=== PATIENT | male | born 1965 | race Caucasian/White ===

== ENCOUNTER 2017-01-22 20:50 | Emergency (ER) | payer OTHER ==
[~2017-01-22] VITALS: Ht 193 cm; Wt 120.0 kg
[2017-01-22] MEDS ORDERED: XANA0.25 PO (21:11)
[2017-01-22] MEDS ORDERED: METOPROLOL 5 MG/5 ML VIAL IV SCH (21:15)
[2017-01-22] MEDS ORDERED: METOPROLOL TART 50 MG TAB PO ONE (21:15)
[2017-01-22] MEDS ORDERED: ASPIRIN 81 MG CHEW TABLET PO ONE (21:15)
[2017-01-22] MEDS ORDERED: NS 1,000 ML IV ONE (21:15)
[2017-01-22 21:38] VITALS: BP 115/57
[2017-01-22 21:38] LABS: BASO # 0.1 K/mm3 (0.0-0.2); BASO % 0.6 % (0.0-1.0); EOS # 0.2 K/mm3 (0.0-0.50); EOS % 1.7 % (0.0-3.0); LARGE UNSTAINED CELL # 0.1 K/mm3 (0.0-0.4); LARGE UNSTAINED CELL % 1.2 % (0.0-4.0); LYMPH # 3.4 K/mm3 (1.5-4.5); LYMPH % 30.7 % (24.0-44.0); MEAN CORPUSCULAR HGB CONC 34.3 g/dl (32.0-36.5); MEAN CORPUSCULAR VOLUME 93.4 fl (80.0-96.0); MONO # 0.5 K/mm3 (0.0-0.8); MONO % 4.6 % (0.0-5.0); NEUTROPHILS # 6.6 K/mm3 (1.8-7.7); NEUTROPHILS % 61.2 % (36.0-66.0); PLATELET COUNT, AUTOMATED 324 k/mm3 (150-450); RED CELL DISTRIBUTION WIDTH 12.6 % (11.5-14.5); WHITE BLOOD COUNT 10.8 K/mm3 (4.0-10.0)
[2017-01-22 21:45] LABS: INR 0.98
[2017-01-22 21:59] LABS: ANION GAP 6 MEQ/L (8-16); BLOOD UREA NITROGEN 15 MG/DL (7-18); CALCIUM LEVEL 8.8 MG/DL (8.5-10.1); CARBON DIOXIDE LEVEL 31 MEQ/L (21-32); CHLORIDE LEVEL 104 MEQ/L (98-107); CREATININE FOR GFR 0.83 MG/DL (0.70-1.30); GLOMERULAR FILTRATION RATE > 60.0 (>60); GLUCOSE, FASTING 125 MG/DL (70-105); POTASSIUM SERUM 3.7 MEQ/L (3.5-5.1); SODIUM LEVEL 141 MEQ/L (136-145)
[2017-01-22] MEDS ORDERED: LORazepam 2 MG/ML VIAL (J2060) IV STA (22:14)
[2017-01-22] MEDS ORDERED: diphenhydrAMINE INJ 50MG/ML VIAL (J1200) IV STA (22:14)
--- NOTE | 2017-01-22 22:40 | REP ---
Clinical: Chest pain. Comparison: 08/27/2010. Findings: Mediastinum and cardiac silhouette are within normal limits and stable for portable technique. Lung parkinson demonstrate chronic changes. Trace basilar atelectasis cannot be excluded. No obvious consolidation, effusion, or pneumothorax. Skeletal structures intact. Impression: Chronic stable changes. Cannot exclude trace basilar atelectasis. Signed by Kings Koo MD 01/22/2017 10:31 P
[2017-01-22] MEDS ORDERED: RIVAROXABAN 20 MG TAB (XARELTO) PO ONE (23:45)
[2017-01-22] MEDS ORDERED: LOPR1TAB6 PO (23:52)
[2017-01-22] MEDS ORDERED: XARE20TA PO (23:52)
[2017-01-23 00:07] VITALS: BP 14/68
--- NOTE | 2017-01-24 07:20 | ECGEPIP ---
Stationary ECG Study [facility] - ED Test Date: 2017-01-22 Pat Name: ARNOLD KAPLAN Department: Room: - Gender: M Mesh Man: john : 1965 Requested By: STANISLAV Pérez Order Number: [id number] Reading MD: Kathy Gutierrez Measurements Intervals [place] Rate: 118 P: [place]: 0 QRS: 49 QRSD: 100 T: 46 QT: 324 QTc: 454 Interpretive Statements ATRIAL FIBRILLATION WITH RAPID VENTRICULAR RESPONSE POSSIBLE INFERIOR MYOCARDIAL INFARCTION, PROBABLY OLD ABNORMAL RHYTHM ECG NO PRIOR FOR COMPARISON Electronically Signed On 01-24-2017 7:20:13 EDT by Kathy Gutierrez
== END 2017-01-23 00:20 | disposition home or self-care (01) ==
LOC: M ED 21:52
DX: I48.91 Unspecified atrial fibrillation (principal); R94.31 Abnormal electrocardiogram [ECG] [EKG]; Z86.711 Personal history of pulmonary embolism; Z85.118 Personal history of other malignant neoplasm of bronchus and lung; F17.200 Nicotine dependence, unspecified, uncomplicated

== ENCOUNTER → 2017-05-24 | Outpatient (CLI) | payer OTHER ==
[~2017-05-24] MED LIST: LOPR1TAB6 PO; XANA0.25 PO; XARE20TA PO
[2017-05-24 08:27] LABS: MEAN CORPUSCULAR HEMOGLOBIN 31.9 pg (27.0-33.0); MEAN CORPUSCULAR HGB CONC 34.6 g/dl (32.0-36.5); MEAN CORPUSCULAR VOLUME 92.1 fl (80.0-96.0); PLATELET COUNT, AUTOMATED 310 10^3/uL (150-450); RED CELL DISTRIBUTION WIDTH 12.9 % (11.5-14.5); WHITE BLOOD COUNT 7.9 10^3/uL (4.0-10.0)
[2017-05-24 09:43] LABS: ALBUMIN 3.8 GM/DL (3.2-5.2); ALBUMIN/GLOBULIN RATIO 1.12 (1.00-1.93); ALKALINE PHOSPHATASE 76 U/L (45-117); ALT/SGPT 23 U/L (12-78); ANION GAP 7 MEQ/L (8-16); AST/SGOT 11 U/L (15-37); BILIRUBIN,TOTAL 0.5 MG/DL (0.2-1.0); BLOOD UREA NITROGEN 14 MG/DL (7-18); CALCIUM LEVEL 9.5 MG/DL (8.5-10.1); CARBON DIOXIDE LEVEL 28 MEQ/L (21-32); CHLORIDE LEVEL 104 MEQ/L (98-107); CHOLESTEROL LEVEL 191 MG/DL (<200); GLOMERULAR FILTRATION RATE > 60.0 (>60); GLUCOSE, FASTING 100 MG/DL (70-105); POTASSIUM SERUM 4.5 MEQ/L (3.5-5.1); SODIUM LEVEL 139 MEQ/L (136-145); TOTAL PROTEIN 7.2 GM/DL (6.4-8.2); TRIGLYCERIDES LEVEL 154 MG/DL (<150)
== END ==
LOC: M LAB 07:51
PROVIDERS: ATTEND Family Medicine
DX: F32.9 Major depressive disorder, single episode, unspecified (principal); E78.4 Other hyperlipidemia; E74.9 Disorder of carbohydrate metabolism, unspecified

== ENCOUNTER 2018-05-11 08:57 | Emergency (ER) | payer OTHER ==
[2018-05-11] MEDS ORDERED: METOPROLOL 5 MG/5 ML VIAL As Ordered (09:16)
[2018-05-11] MEDS: METOPROLOL 5 MG/5 ML VIAL IV ×6 (09:20→09:36)
[2018-05-11 09:24] LABS: HEMATOCRIT 42.4 % (42.0-52.0); HEMOGLOBIN 14.6 g/dl (13.5-17.5); MEAN CORPUSCULAR HEMOGLOBIN 31.4 pg (27.0-33.0); MEAN CORPUSCULAR HGB CONC 34.4 g/dl (32.0-36.5); MEAN CORPUSCULAR VOLUME 91.2 fl (80.0-96.0); PLATELET COUNT, AUTOMATED 388 10^3/uL (150-450); RED BLOOD COUNT 4.65 10^6/uL (4.30-6.10); RED CELL DISTRIBUTION WIDTH 12.9 % (11.5-14.5); WHITE BLOOD COUNT 14.5 10^3/uL (4.0-10.0)
[2018-05-11 09:36] LABS: INR 1.01; PROTHROMBIN TIME 13.4 SECONDS (12.1-14.4)
[2018-05-11 09:37] LABS: PARTIAL THROMBOPLASTIN TIME 28.3 SECONDS (25.4-37.6)
[2018-05-11 09:39] LABS: ADD MANUAL DIFFER YES; DIFF SLIDE NUMBER 105; POSITIVE DIFF POS FLAG
[2018-05-11 10:08] LABS: ATYPICAL LYMPH 2 % (0-5); EOSINOPHILS 2 % (0-5); LYMPHOCYTES 31 % (16-52); MONOCYTES 9 % (0-8); NEUTROPHILS 56 % (35-75); PLATELET ESTIMATE NORMAL (NORMAL)
[2018-05-11 10:24] LABS: ALBUMIN 3.1 GM/DL (3.2-5.2); ALBUMIN/GLOBULIN RATIO 0.78 (1.00-1.93); ALKALINE PHOSPHATASE 75 U/L (45-117); ALT/SGPT 38 U/L (12-78); ANION GAP 10 MEQ/L (8-16); AST/SGOT 19 U/L (7-37); BILIRUBIN,DIRECT < 0.1 MG/DL (0.0-0.2); BILIRUBIN,TOTAL 0.3 MG/DL (0.2-1.0); BLOOD UREA NITROGEN 18 MG/DL (7-18); CALCIUM LEVEL 8.1 MG/DL (8.5-10.1); CARBON DIOXIDE LEVEL 26 MEQ/L (21-32); CHLORIDE LEVEL 108 MEQ/L (98-107); CPK CREATINE PHOSPHOKINASE 135 U/L (39-308); CREATININE FOR GFR 0.86 MG/DL (0.70-1.30); FREE T4 1.18 NG/DL (0.76-1.46); GLOMERULAR FILTRATION RATE > 60.0 (>56); GLUCOSE, FASTING 85 MG/DL (70-100); MB/CK RELATIVE INDEX 0.74 (< OR =4); POTASSIUM SERUM 4.1 MEQ/L (3.5-5.1); SODIUM LEVEL 144 MEQ/L (136-145); TOTAL PROTEIN 7.1 GM/DL (6.4-8.2); TROPONIN I < 0.02 NG/ML (< 0.10)
[2018-05-11] MEDS: RIVAROXABAN 20 MG TAB (XARELTO) PO (11:20)
== END 2018-05-11 11:30 | disposition left against medical advice (07) ==
LOC: M ED 08:57
DX: I48.91 Unspecified atrial fibrillation (principal); Z53.20 Procedure and treatment not carried out because of patient's decision for unspecified reasons
CPT/HCPCS: 71045

== ENCOUNTER 2018-05-11 16:44 | Emergency (ER) | payer OTHER ==
[2018-05-11 17:12] LABS: BASO # 0.1 10^3/uL (0.0-0.2); BASO % 0.3 % (0.0-1.0); EOS # 0.2 10^3/uL (0.0-0.50); EOS % 1.2 % (0.0-3.0); HEMOGLOBIN 14.7 g/dl (13.5-17.5); IMMATURE GRANULOCYTE % 0.9 % (0-3.0); LYMPH # 4.4 10^3/uL (1.5-4.5); LYMPH % 27.2 % (24.0-44.0); MEAN CORPUSCULAR HEMOGLOBIN 31.7 pg (27.0-33.0); MEAN CORPUSCULAR VOLUME 90.7 fl (80.0-96.0); MONO # 1.2 10^3/uL (0.0-0.8); MONO % 7.3 % (0.0-5.0); NEUTROPHILS # 10.2 10^3/uL (1.8-7.7); NEUTROPHILS % 63.1 % (36.0-66.0); PLATELET COUNT, AUTOMATED 372 10^3/uL (150-450); RED BLOOD COUNT 4.63 10^6/uL (4.30-6.10); RED CELL DISTRIBUTION WIDTH 12.7 % (11.5-14.5); WHITE BLOOD COUNT 16.1 10^3/uL (4.0-10.0)
[2018-05-11] MEDS: NS 1,000 ML IV (17:15)
[2018-05-11] MEDS: METOPROLOL TART 25 MG TABLET PO (17:30)
[2018-05-11 17:38] LABS: ANION GAP 8 MEQ/L (8-16); BLOOD UREA NITROGEN 15 MG/DL (7-18); CALCIUM LEVEL 8.4 MG/DL (8.5-10.1); CARBON DIOXIDE LEVEL 28 MEQ/L (21-32); CHLORIDE LEVEL 104 MEQ/L (98-107); CPK CREATINE PHOSPHOKINASE 133 U/L (39-308); CREATININE FOR GFR 0.82 MG/DL (0.70-1.30); GLOMERULAR FILTRATION RATE > 60.0 (>56); GLUCOSE, FASTING 85 MG/DL (70-100); MB/CK RELATIVE INDEX 0.98 (< OR =4); POTASSIUM SERUM 3.9 MEQ/L (3.5-5.1); SODIUM LEVEL 140 MEQ/L (136-145); TROPONIN I < 0.02 NG/ML (< 0.10)
[2018-05-11] MEDS: METOPROLOL 5 MG/5 ML VIAL IV (18:53)
== END 2018-05-11 18:50 | disposition home or self-care (01) ==
LOC: M ED 16:44
DX: I48.91 Unspecified atrial fibrillation (principal)
CPT/HCPCS: 93005

== ENCOUNTER → 2018-10-09 | Outpatient (REF) | payer OTHER ==
[~2018-10-09] MED LIST changes: +AMOX PO; +ASPI1TAB20 PO; +METO1TAB87 PO; +PRED20TA PO
[2018-10-09 12:29] LABS: HEMATOCRIT 41.2 % (42.0-52.0); MEAN CORPUSCULAR VOLUME 91.2 fl (80.0-96.0); PLATELET COUNT, AUTOMATED 329 10^3/uL (150-450); RED BLOOD COUNT 4.52 10^6/uL (4.30-6.10); WHITE BLOOD COUNT 8.4 10^3/uL (4.0-10.0)
[2018-10-09 13:29] LABS: ALBUMIN 4.2 GM/DL (3.2-5.2); ALT/SGPT 26 U/L (12-78); BILIRUBIN,TOTAL 0.4 MG/DL (0.2-1.0); BLOOD UREA NITROGEN 22 MG/DL (7-18); CALCIUM LEVEL 8.9 MG/DL (8.5-10.1); CARBON DIOXIDE LEVEL 28 MEQ/L (21-32); CHLORIDE LEVEL 107 MEQ/L (98-107); CHOLESTEROL LEVEL 227 MG/DL (<200); CHOLESTEROL RISK RATIO 5.675 (<5); CREATININE FOR GFR 0.81 MG/DL (0.70-1.30); FREE T4 1.04 NG/DL (0.76-1.46); GLOMERULAR FILTRATION RATE > 60.0 (>56); GLUCOSE, FASTING 96 MG/DL (70-100); HDL CHOLESTEROL 40 MG/DL (>40); LDL CHOLESTEROL 163 MG/DL (<100); NON-HDL-C 187 MG/DL; POTASSIUM SERUM 4.9 MEQ/L (3.5-5.1); SODIUM LEVEL 140 MEQ/L (136-145); TOTAL PROTEIN 7.4 GM/DL (6.4-8.2); TRIGLYCERIDES LEVEL 121 MG/DL (<150)
== END ==
LOC: M SFHCADAM 10:17
PROVIDERS: ATTEND Family Medicine
DX: Z12.5 Encounter for screening for malignant neoplasm of prostate (principal); E78.5 Hyperlipidemia, unspecified; I48.0 Paroxysmal atrial fibrillation; F32.9 Major depressive disorder, single episode, unspecified; G47.33 Obstructive sleep apnea (adult) (pediatric)

== ENCOUNTER → 2019-10-08 | Outpatient (REF) | payer OTHER ==
[~2019-10-08] MED LIST changes: -ASPI1TAB20 PO; +ASPI325T57 PO
[2019-10-08 13:34] LABS: ALBUMIN 3.9 GM/DL (3.2-5.2); ALT/SGPT 23 U/L (12-78); BILIRUBIN,TOTAL 0.3 MG/DL (0.2-1.0); BLOOD UREA NITROGEN 19 MG/DL (7-18); CALCIUM LEVEL 9.4 MG/DL (8.5-10.1); CARBON DIOXIDE LEVEL 30 MEQ/L (21-32); CHLORIDE LEVEL 105 MEQ/L (98-107); CHOLESTEROL LEVEL 184 MG/DL (<200); CREATININE FOR GFR 0.86 MG/DL (0.70-1.30); FREE T4 1.06 NG/DL (0.76-1.46); GLOMERULAR FILTRATION RATE > 60.0 (>56); GLUCOSE, FASTING 87 MG/DL (70-100); HDL CHOLESTEROL 32 MG/DL (>40); LDL CHOLESTEROL 129 MG/DL (<100); NON-HDL-C 152 MG/DL; POTASSIUM SERUM 4.7 MEQ/L (3.5-5.1); SODIUM LEVEL 138 MEQ/L (136-145); TOTAL PROTEIN 7.4 GM/DL (6.4-8.2); TRIGLYCERIDES LEVEL 114 MG/DL (<150)
[2019-10-08 13:50] LABS: HEMATOCRIT 43.8 % (42.0-52.0); HEMOGLOBIN 14.7 g/dl (13.5-17.5); MEAN CORPUSCULAR HEMOGLOBIN 31.6 pg (27.0-33.0); MEAN CORPUSCULAR HGB CONC 33.6 g/dl (32.0-36.5); MEAN CORPUSCULAR VOLUME 94.2 fl (80.0-96.0); PLATELET COUNT, AUTOMATED 359 10^3/uL (150-450); RED BLOOD COUNT 4.65 10^6/uL (4.30-6.10); WHITE BLOOD COUNT 9.3 10^3/uL (4.0-10.0)
[2019-10-08 14:25] LABS: HEMOGLOBIN A1c 5.8 %
== END ==
LOC: M SFHCADAM 09:51
PROVIDERS: ATTEND Family Medicine
DX: J44.9 Chronic obstructive pulmonary disease, unspecified (principal); G47.33 Obstructive sleep apnea (adult) (pediatric); I11.9 Hypertensive heart disease without heart failure; E78.5 Hyperlipidemia, unspecified; I48.0 Paroxysmal atrial fibrillation; E74.9 Disorder of carbohydrate metabolism, unspecified; Z12.5 Encounter for screening for malignant neoplasm of prostate

== ENCOUNTER → 2021-05-04 | Outpatient (REF) | payer OTHER ==
[2021-05-04 17:54] LABS: HEMATOCRIT 40.4 % (42.0-52.0); HEMOGLOBIN 13.6 g/dl (13.5-17.5); MEAN CORPUSCULAR HEMOGLOBIN 31.2 pg (27.0-33.0); MEAN CORPUSCULAR HGB CONC 33.7 g/dl (32.0-36.5); MEAN CORPUSCULAR VOLUME 92.7 fl (80.0-96.0); PLATELET COUNT, AUTOMATED 333 10^3/uL (150-450); RED BLOOD COUNT 4.36 10^6/uL (4.30-6.10); WHITE BLOOD COUNT 11.5 10^3/uL (4.0-10.0)
[2021-05-04 19:32] LABS: ALBUMIN 3.6 GM/DL (3.2-5.2); ALT/SGPT 27 U/L (12-78); BILIRUBIN,TOTAL 0.6 MG/DL (0.2-1.0); BLOOD UREA NITROGEN 16 MG/DL (7-18); CALCIUM LEVEL 9.2 MG/DL (8.5-10.1); CARBON DIOXIDE LEVEL 28 MEQ/L (21-32); CHLORIDE LEVEL 107 MEQ/L (98-107); CHOLESTEROL LEVEL 201 MG/DL (<200); CHOLESTEROL RISK RATIO 5.025 (<5); CREATININE FOR GFR 0.91 MG/DL (0.70-1.30); FREE T4 1.06 NG/DL (0.76-1.46); GLOMERULAR FILTRATION RATE > 60.0 (>56); GLUCOSE, FASTING 77 MG/DL (70-100); HDL CHOLESTEROL 40 MG/DL (>40); LDL CHOLESTEROL 137 MG/DL (<100); NON-HDL-C 161 MG/DL; POTASSIUM SERUM 4.2 MEQ/L (3.5-5.1); SODIUM LEVEL 139 MEQ/L (136-145); TOTAL PROTEIN 7.2 GM/DL (6.4-8.2); TRIGLYCERIDES LEVEL 121 MG/DL (<150)
[2021-05-04 19:52] LABS: HEMOGLOBIN A1c 5.4 %
== END ==
LOC: M SFHCADAM 15:50
PROVIDERS: ATTEND Family Medicine
DX: G47.33 Obstructive sleep apnea (adult) (pediatric) (principal); I11.9 Hypertensive heart disease without heart failure; E78.5 Hyperlipidemia, unspecified; E74.9 Disorder of carbohydrate metabolism, unspecified; I48.0 Paroxysmal atrial fibrillation; Z12.5 Encounter for screening for malignant neoplasm of prostate

== ENCOUNTER → 2021-05-04 | Outpatient (CLI) | payer OTHER ==
--- NOTE | 2021-05-05 09:29 | REP ---
INDICATION: ARTHRITIS OF BOTH KNEE. COMPARISON: Comparison radiographs are from May 30, 2015. Comparison left knee radiographs are from November 22, 2012. TECHNIQUE: Bilateral knee radiographs. Eleven views total. FINDINGS: Bilateral knee radiographs demonstrate advanced osteoarthritis. On the right there is joint space narrowing in the medial tibiofemoral compartment with sclerosis and well established osteophytes. Fairly large osteophytes are seen laterally and there is patellofemoral narrowing and spur formation. There is a large ossicle in the suprapatellar bursa consistent with a loose body. This measures 2.6 cm. There is also non articular spurring at the superior pole of the patella at the quadriceps tendon insertion. A fabella is noted posterolaterally on the right. On the left, there are similar findings with advanced 3 compartment osteoarthritis, medial joint space narrowing, patellofemoral joint space narrowing, and well established spurring at all 3 compartments. There are at least 2 os ossific loose bodies in the region of the suprapatellar bursa on the left. These measure rr 3.1 and 4.8 cm in greatest diameter respectively. There is a possible loose body adjacent to the posterior 0 aspect of the proximal tibiofibular articulation on the left. There is non articular spurring at the upper pole the left patella at the quadriceps tendon insertion similar to that seen on the right. IMPRESSION: Advanced 3 compartment osteoarthritis bilaterally. Bilateral suprapatellar bursal loose body suspected. The findings have progressed on the right somewhat and the loose body is new on the right compared to the May 30, 2015 prior knee radiograph. The left knee findings have progressed since the 2012 radiograph as well. <Electronically signed by Brian Duncan > 05/05/21 4590
== END ==
LOC: M ADAMS 15:56
PROVIDERS: ATTEND Family Medicine
DX: M17.0 Bilateral primary osteoarthritis of knee (principal)

== ENCOUNTER 2021-06-16 05:44 | Observation (INO) | payer OTHER ==
[~2021-06-16] VITALS: Ht 193 cm; Wt 136.4 kg
[2021-06-16] MEDS ORDERED: ASPI-161 PO (05:52)
--- OUTSIDE RECORDS SUMMARY | 2021-06-16 05:54 | CCD | Continuity of Care Document ---
Author Author [facility] Organization Unknown Address [address] [place] [address] [place] [address] Phone [phone] Care Team Providers Care Telecine Operator Name Role Phone Henok Bustillos MD AUTM [phone] AUTM Unavailable Problems Description No Information Available Social History Type Date Description Comments Sex Unknown Tobacco Use Start: Unknown Current Cigarette Smoker 1 Pack Daily 1/2 ETOH Use Denies alcohol use Tobacco Use Start: Unknown Patient is a current smoker, smo kes every day Smoking Status Reviewed: 05/12/21 Patient is a current smoker, smokes every day Allergies and adverse reactions Description No Known Drug Allergies Medications Active Medications SIG Qnty Indications Ordering Provide r Date Amoxicillin/Clavulanate Potassium 875-125mg Tablets 1 tab by mouth twice a day for 10 days 20tabs J03.90 Adryan Pelayo JR., M.D. 05/12/2021 Metoprolol Succinate ER Unknown 0 Aspir-[address] qd Unknown Ibuprofen 800mg Tablets take one tablet every 6-8hrs with food this am Unknown 0 Medications Administered in Office Medication SIG Qnty Indications Ordering Provider Date Rocephin/Ceftriaxone Sodium Injection Pe r 250 MG Injection Edvin Forrester 05/12/2021 Immunizations Description No Information Available Vital Signs Date Vital Result Comment 05/12/2021 4:19pm BP Systolic 122 mmHg BP Diastolic 80 mmHg Heart Rate 94 /min Respiratory Rate 17 /min O2 % BldC Oximetry 97 % Body Temperature 98.4 F Weight 290.00 lb Height 76 inches 6'4" BMI (Body Mass Index) 35.3 kg/m2 Pain Level 9 08/28/2019 6:32pm BP Systolic 114 mmHg BP Diastolic 79 mmHg Heart Rate 102 /min Respiratory Rate 18 /min O2 % BldC Oximetry 97 % Body Temperature 98.9 F Weight 292.00 lb Height 76 inches 6'4" BMI (Body Mass Index) 35.5 kg/m2 Pain Level 8 Results Description No Information Available Procedures Date Code Description Status 05/12/2021 22622 Office/Outpatient Established Lo w MDM 20-29 Min Completed 05/12/2021 66524 Therapeutic, Prophylactic Or Lesia gnostic Injection Subq/Im Completed Medical Devices Description No Information Available Encounters Type Date Location Provider Dx Diagnosis Office Visit 05/12/2021 2:35p Main Office Jean Palma, PGatito J0 3.90 Acute tonsillitis, unspecified Z20.828 Contact w and exposure to ot h viral communicable diseases Assessments Date Code Description Provider 05/12/2021 J03.90 Acute tonsillitis, unspecified J vanda Palma, PGarethAGareth 05/12/2021 Z20.828 Contact with and (espinoza spected) exposure to other viral communicable diseases Jean Palma, PG[place]ito Plan of Treatment No Information Available Functional Status Description No Information Available Mental Status Description No Information Available Referrals Description No Information Available
--- OUTSIDE RECORDS SUMMARY | 2021-06-16 05:54 | CCD | Continuity of Care Document ---
Author Author Juan Carlos PALMA Organization Unknown Address [address] [place] [address] [place] [address] Phone [phone] Care Team Providers Care Roller Operator Name Role Phone Henok Bsutillos MD AUTM [phone] AUTM Unavailable Problems Description No Information Available [...] Available Procedures Date Code Description Status 05/12/2021 67764 Office/Outpatient Established Lo w MDM 20-29 Min Completed 05/12/2021 19948 Therapeutic, Prophylactic Or Lesia gnostic Injection Subq/Im [...]
--- OUTSIDE RECORDS SUMMARY | 2021-06-16 05:54 | CCD | Continuity of Care Document ---
Author Author Juan Carlos PALMA Organization Unknown Address [address] [place] [address] [place] [address] Phone [phone] Care Team Providers Care Mine Car Mechanic Name Role Phone Henok Bustillos MD AUTM [phone] AUTM Unavailable Problems Description No Information Available [...] Available Procedures Date Code Description Status 05/12/2021 64801 Office/Outpatient Established Lo w MDM 20-29 Min Completed 05/12/2021 03264 Therapeutic, Prophylactic Or Lesia gnostic Injection Subq/Im [...]
--- OUTSIDE RECORDS SUMMARY | 2021-06-16 05:54 | CCD | Continuity of Care Document ---
Author Author [facility] Organization Unknown Address [address] [place] [address] [place] [address] Phone [phone] Care Team Providers Care Insulation Technician Name Role Phone Henok Bustillos MD AUTM [phone] AUTM Unavailable Problems Description No Information Available [...] Available Procedures Date Code Description Status 05/12/2021 32850 Office/Outpatient Established Lo w MDM 20-29 Min Completed 05/12/2021 09129 Therapeutic, Prophylactic Or Lesia gnostic Injection Subq/Im Completed Medical Devices Description No Information Available Encounters Type Date Location Provider Dx Diagnosis Office Visit 05/12/2021 2:35p Main Office Jean Niño, PGatito J0 3.90 Acute tonsillitis, unspecified Z20.828 Contact w and exposure to ot h viral communicable diseases Assessments Date Code Description Provider 05/12/2021 J03.90 Acute tonsillitis, unspecified J vanda Niño, PGarethAGareth 05/12/2021 Z20.828 Contact with and (espinoza spected) exposure to other viral communicable diseases Jean Niño, PG[place] Plan of Treatment No Information Available Functional Status Description No Information Available Mental Status Description No Information Available Referrals Description No Information Available
--- OUTSIDE RECORDS SUMMARY | 2021-06-16 05:55 | CCD ---
Author Author [facility] Organization [facility] Address Unknown Phone Unavailable Care Team Providers Care Elementary Assistant Principal Name Role Phone Henok Bustillos Unavailable PROBLEMS Type Condition ICD9-CM Code [id number] Code Onset Dates Condition S tatus W/U Status Risk SNOMED Code Notes Problem Major depressive disorder, single episode, unspecified F32.9 Active confirmed 46713867 Problem Nicotine dependence, unspecified, uncomplicated F1 7.200 Active confirmed 445937121 Problem Other hyperlipidemia E78.4 Active confirmed 61300493 Problem Tobacco abuse Z72.0 Active confirmed 693921 05 Problem Chronic obstructive pulmonary disease, unspecified COPD ty pe J44.9 Active confirmed 65617472 FEV1/FVC 65% () Problem Obstructive sleep apnea (adult) (pediatric) G47.33 Active confirmed 34166071 Problem Hypertensive heart disease without heart failure I 11.9 Active confirmed 30971749 Problem Hyperlipemia E78.5 Active confirmed 5872789 4 Problem Disorder of carbohydrate metabolism, 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 Active confirmed 89121581 Problem DDD (degenerative disc disease), lumbosacral M51.3 7 Active confirmed 09836967 Problem Gastro-esophageal reflux disease with esophagitis K21.0 Active confirmed 447066516 Problem Paroxysmal a-fib I48.0 Active confirmed 282 793954 last episode 2009; metoprolol was dc 09/2019 ALLERGIES No Known Allergies ENCOUNTERS from 1965 to 2021-03-22 Encounter Location Date Provider Diagnosis [facility] [address] [place] [address] Feb, Henok Bustillos IMMUNIZATIONS Vaccine Route Administration Date Status Influenza 6mo & up Fluzone Unknown Apr 29, 2014 Admin istered Influenza 6mo & up Fluzone IM Intramuscular May 24, 2012 Admi nistered SOCIAL HISTORY Tobacco Use: Social History Observation Description Date Details (start date - stop date) Current Smoker Sex Assigned At : Social History Observation Description Sex Assigned At Unknown Audit Question Answer Notes Total Score: 1 Interpretation: Alcohol Education Drug and Alcohol Question Answer Notes Total Score: 0 Interpretation: No problems reported BMI Care Goal Follow-Up Question Answer Notes Above Normal BMI Follow-Up Lifestyle education regarding t Tobacco Use: Question Answer Notes Are you a: current smoker Patient counseled on the dangers of tobacco use and urged to quit: 10/09/2018 How many cigarettes a day do you smoke? 11-20 Are you interested in quitting? Thinking about quitting Counseled the patient on smoking cessation, education provid ed 10/06/2016 REASON FOR REFERRAL No Information VITAL SIGNS No information MEDICATIONS Medication SIG (Take, Route, Frequency, Duration) Notes Start Da te End Date Status Nicotine 14 MG/24HR 1 patch to skin Transdermal Once a day for 3 0 day(s) Jul, Not-Taking ALPRAZolam 0.25 MG 1 tablet Orally 2 times a day as needed MDD: 2 for 30 days Not-Taking Metoprolol Succinate ER 25 MG TAKE ONE-HALF TABLET BY MOUTH EVERY DAY Orally Daily for 30 days Active Ibuprofen 800 MG TAKE ONE TABLET BY MOUTH THREE TIMES A DAY for 90 Active Aspir-81 81 MG 1 tablet Orally Once a day Active PROCEDURES No Information RESULTS No Results REASON FOR VISIT call back on metoprolol MEDICAL (GENERAL) HISTORY Type Description Date Medical History sleep apnea, stopped using CPAP 2014 Medical History palpitations triggered by cold drinks - on lopressor Medical History depression -Denies hx of depression Medical History anxiety--"panic attacks" Medical History Esophageal reflux Medical History psoriasis Medical History hyperlipidemia Medical History COPD - FERV1 3.6, FEV1/FVC 65% (10/16) Medical History impaired fasting glucose Medical History hypertension Medical History DDD/DD LS spine 08/06, 11/09, mild central canal stenosis MRI 2012 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 at fib --[facility] 02/05 Medical History 08/07--EF 60-70%, LA 35 mm Medical History Nicotine dependence Surgical History carcinoid tumor rt lung 08/04 Goals Section No Information Health Concerns No Information MEDICAL EQUIPMENT No Information MENTAL STATUS No Information FUNCTIONAL STATUS No Information ASSESSMENTS No Information PLAN OF TREATMENT Medication Medication Name Sig Start Date Stop Date Metoprolol Succinate ER 25 MG TAKE ONE-HALF TABLET BY MOUTH EVERY DAY Orally Daily for 30 days Ibuprofen 800 MG TAKE ONE TABLET BY MOUTH THREE TIMES A DAY for 90 Next Appt Details Provider Name:Henok Bustillos, 2021-03 03:15:00 PM, [address], , [place], [address], Insurance Providers Payer Name Payer Address Payer Phone Insured Name Patient Relati onship to Insured Coverage Start Date Coverage End Date [employer] [facility] [address] [facility] [id number] ARNOLD ESPARZA self
--- OUTSIDE RECORDS SUMMARY | 2021-06-16 05:55 | CCD ---
Author Author [facility] Organization [facility] Address Unknown Phone Unavailable Care Team Providers Care Behavioral Sciences Department Chair Name Role Phone WetterHenok santos MD Unavailable Unavailable WetterhahnHenok MD Unavailable Unavailable WetterhahnHneok MD Unavailable Unavailable Wetterhahn, Henok PERRY Unavailable Unavailable Wetterhahn, Henok PERRY Unavailable Unavailable Wetterhahn, Henok PERRY Unavailable Unavailable WetterhahnHenok MD Unavailable Unavailable WetterhahnHenok MD Unavailable Unavailable WetterhahnHenok MD Unavailable Unavailable Wetterhahn, Henok PERRY Unavailable Unavailable Wetterhahn, Henok PERRY Unavailable Unavailable Wetterhahn, Henok PERRY Unavailable Unavailable Wetterhahn, Henok PERRY Unavailable Unavailable Wetterhahn, Henok PERRY Unavailable Unavailable Wetterhahn, Henok PERRY Unavailable Unavailable Wetterhahn, Henok PERRY Unavailable Unavailable Wetterhahn, Henok PERRY Unavailable Unavailable Wetterhahn, Henok PERRY Unavailable Unavailable Wetterhahn, Henok PERRY Unavailable Unavailable Wetterhahn, Henok PERRY Unavailable Unavailable WetterhahnHenok MD Unavailable Unavailable WetterhahnHenok MD Unavailable Unavailable WetterhahnHenok MD Unavailable Unavailable WetterhahnHenok MD Unavailable Unavailable Wetterhahn, Henok PERRY Unavailable Unavailable WetterhahnHenok MD Unavailable Unavailable WetterhahnHenok MD Unavailable Unavailable WetterhahnHenok MD Unavailable Unavailable WetterhahnHenok MD Unavailable Unavailable WetterhahnHenok MD Unavailable Unavailable WetterhahnHenok MD Unavailable Unavailable WetterhahnHenok MD Unavailable Unavailable WetterhahnHenok MD Unavailable Unavailable WetterhahnHenok MD Unavailable Unavailable WetterhahnHenok MD Unavailable Unavailable WetterhahnHenok MD Unavailable Unavailable WetterhahnHenok MD Unavailable Unavailable WetterhahnHenok MD Unavailable Unavailable WetterhahnHenok MD Unavailable Unavailable WetterhahnHenok MD Unavailable Unavailable WetterhahnHenok MD Unavailable Unavailable WetterhahnHenok MD Unavailable Unavailable WetterhahnHenok MD Unavailable Unavailable WetterhahnHenok MD Unavailable Unavailable WetterhahnHenok MD Unavailable Unavailable WetterhahnHenok MD Unavailable Unavailable WetterhahnHenok MD Unavailable Unavailable WetterhahnHenok MD Unavailable Unavailable WetterhahnHenok MD Unavailable Unavailable WetterhahnHenok MD Unavailable Unavailable WetterhahnHenok MD Unavailable Unavailable WetterhahnHenok MD Unavailable Unavailable WetterhahnHenok MD Unavailable Unavailable WetterhahnHenok MD Unavailable Unavailable WetterhahnHenok MD Unavailable Unavailable Wetterhahn, Henok MD Unavailable Unavailable WetterhahnHenok MD Unavailable Unavailable WetterhahnHenok MD Unavailable Unavailable WetterhahnHenok MD Unavailable Unavailable WetterhahnHenok MD Unavailable Unavailable WetterhahnHenok MD Unavailable Unavailable WetterhahnHenok MD Unavailable Unavailable WetterhahnHenok MD Unavailable Unavailable WetterhahnHenok MD Unavailable Unavailable WetterhahnHenok MD Unavailable Unavailable WetterhahnHenok MD Unavailable Unavailable WetterhahnHenok MD Unavailable Unavailable WetterhahnHenok MD Unavailable Unavailable WetterhahnHenok MD Unavailable Unavailable WetterhahnHenok MD Unavailable Unavailable WetterhahnHenok MD Unavailable Unavailable WetterhahnHenok MD Unavailable Unavailable MINERVA, TYE PA Unavailable Unavailable MINERVA, TYE PA Unavailable Unavailable MINERVA, TYE PA Unavailable Unavailable MINERVA, TYE PA Unavailable Unavailable MINERVA, TYE PA Unavailable Unavailable MINERVA, TYE PA Unavailable Unavailable MINERVA, TYE PA Unavailable Unavailable MINERVA, TYE PA Unavailable Unavailable MINERVA, TYE PA Unavailable Unavailable MINERVA, TYE PA Unavailable Unavailable MINERVA, TYE PA Unavailable Unavailable MINERVA, TYE PA Unavailable Unavailable MINERVA, TYE PA Unavailable Unavailable MINERVA, TYE PA Unavailable Unavailable MINERVA, TYE PA Unavailable Unavailable MINERVA, TYE PA Unavailable Unavailable MINERVA, TYE PA Unavailable Unavailable MINERVA, TYE PA Unavailable Unavailable MINERVA, TYE PA Unavailable Unavailable MINERVA, TYE PA Unavailable Unavailable MINERVA, TYE PA Unavailable Unavailable MINERVA, TEY PA Unavailable Unavailable MINERVA, TYE PA Unavailable Unavailable MINERVA, TYE PA Unavailable Unavailable MINERVA, TYE PA Unavailable Unavailable MINERVA, TYE PA Unavailable Unavailable MINERVA, TYE PA Unavailable Unavailable MINERVA, TYE PA Unavailable Unavailable MINERVA, TYE PA Unavailable Unavailable MINERVA, TEY PA Unavailable Unavailable MINERVA, TYE PA Unavailable Unavailable MINERVA, TYE PA Unavailable Unavailable MINERVA, TYE PA Unavailable Unavailable MINERVA, TYE PA Unavailable Unavailable MINERVA, TYE PA Unavailable Unavailable MINERVA, TYE PA Unavailable Unavailable Jarad, Rocky Unavailable Unavailable Jarad, Rocky Unavailable Unavailable Jarad, Rocky Unavailable Unavailable NOT, SPECIFIED Unavailable Unavailable JOVANNA C EMILY MD Unavailable Unavailable CHANLIECCO, C EMILY MD Unavailable Unavailable CHANLIECCO, C EMILY MD Unavailable Unavailable CHANLIECCO, C EMILY MD Unavailable Unavailable CHANLIECCO, C EMILY MD Unavailable Unavailable CHANLIECCO, C EMILY MD Unavailable Unavailable CHANLIECCO, C EMILY MD Unavailable Unavailable CHANLIECCO, C EMILY MD Unavailable Unavailable CHANLIECCO, C EMILY MD Unavailable Unavailable CHANLIECCO, C EMILY MD Unavailable Unavailable CHANLIECCO, C EMILY MD Unavailable Unavailable Re-disclosure Warning The records that you are about to access may contain information from federally-assisted alcohol or drug abuse programs. If such information is present, then the following federally mandated warning applies: This information has been disclosed to you from records protected by federal confidentiality rules (42 CFR part 2). The federal rules prohibit you from making any further disclosure of this information unless further disclosure is expressly permitted by the written consent of the person to whom it pertains or as otherwise permitted by 42 CFR part 2. A general authorization for the release of medical or other information is NOT sufficient for this purpose. The Federal rules restrict any use of the information to criminally investigate or prosecute any alcohol or drug abuse patient.The records that you are about to access may contain highly sensitive health information, the redisclosure of which is protected by Article 27-F of the [facility] Public Health law. If you continue you may have access to information: Regarding HIV / AIDS; Provided by facilities licensed or operated by the [facility] Office of Mental Health; or Provided by the [facility] Office for People With Developmental Disabilities. If such information is present, then the following [facility] mandated warning applies: This information has been disclosed to you from confidential records which are protected by state law. State law prohibits you from making any further disclosure of this information without the specific written consent of the person to whom it pertains, or as otherwise permitted by law. Any unauthorized further disclosure in violation of state law may result in a fine or group home sentence or both. A general authorization for the release of medical or other information is NOT sufficient authorization for further disc losure. Family History Family Member Name Family Member Gender Family Member Status Date o f Status Description Data Source(s) Unknown Unknown Problem MEDENT ([facility]) Encounters Encounter Providers Location Date Indications Data Source(s ) Outpatient Attender: TYE Calix ry 05/12/2021 02:35:00 PM EDT MED[facility] ([facility]) Outpatient [address] [facility] [address] 05/04/2021 12:00:00 AM EDT eCW1 ([facility]) Unknown [address] [address] 03/16/2021 12:00:00 AM EDT eCW1 ([facility]) Unknown [address] [address] 03/14/2021 12:00:00 AM EDT eCW1 ([facility]) Unknown [address] [facility] [address] 03/14/2021 12:00:00 AM EDT eCW1 ([facility]) Emergency Attender: Rocky Abraham ER-ER 02/12/20 08:15:00 PM EDT - 02/11/2021 09:01:[address] [facility] Patient discharged. [place] [address] [address] 12/20/2020 12:00:00 AM EDT eCW1 ([facility]) Emergency Attender: EMILY Palmer MDConsultant: Henok Bustillos MDConsultant: SPECIFIED NOT 12/10/2020 09:13:00 PM EDT - 12/11/2020 01:21:[address] [facility] Patient discharged. Unknown [address] [facility] [address] 05/05/2020 12:00:00 AM EDT eCW1 ([facility]) Immunizations Vaccine Date Status Description Data Source(s) COVID-19 VACCINE Pfizer 03/10/2021 12:00:00 AM EDT completed [facility] Vaccine Series Complete: NOThis Data was Submitted to [facility]. Medications Medication Brand Name Start Date Product Form Dose Route Admi nistrative Instructions Pharmacy Instructions Status Indications Reaction Description Data Source(s) 25 mg 06/03/2021 12:00:00 AM EDT tablet extended release 24 hr 15 TAKE ONE- HALF TABLET BY MOUTH EVERY DAY TAKE ONE-HALF TABLET BY MOUTH EVERY DAY SOLD: 06/04/2021 [facility] Rocephin/Ceftriaxone Sodium Injection Per 250 MG 05/12 12:00:00 AM EDT completed MEDENT ([facility]) Medication administered onsite Amoxicillin 875 MG / Clavulanate 125 MG Oral Tablet Am oxicillin/Clavulanate Potassium 05/12/2021 12:00:00 AM EDT ORAL active MEDENT ([facility]) 25 mg 05/11/2021 12:00:00 AM EDT tablet extended release 24 hr 15 TAKE ONE- HALF TABLET BY MOUTH EVERY DAY TAKE ONE-HALF TABLET BY MOUTH EVERY DAY SOLD: 05/11/2021 [facility] 25 mg 04/02/2021 12:00:00 AM EDT tablet extended release 24 hr 15 TAKE ONE- HALF TABLET BY MOUTH EVERY DAY TAKE ONE-HALF TABLET BY MOUTH EVERY DAY SOLD: 04/02/2021 [facility] 800 mg 12/19/2020 12:00:00 AM EDT tablet 90 TAKE ONE TABLET BY MOUTH THREE TIMES A DAY TAKE ONE TABLET BY MOUTH THREE TIMES A DAY SOLD: 12/19/2020 [facility] 25 mg 12/11/2020 12:00:00 AM EDT tablet 30 TAKE ONE TABLET BY MOUTH EVERY DAY TAKE ONE TABLET BY MOUTH EVERY DAY SOLD: 12/19/2020 [facility] 800 mg 10/19/2020 12:00:00 AM EDT tablet 90 TAKE ONE TABLET BY MOUTH THREE TIMES A DAY TAKE ONE TABLET BY MOUTH THREE TIMES A DAY SOLD: 10/26/2020 [facility] 25 mg 05/06/2020 12:00:00 AM EDT tablet extended release 24 hr 45 TAKE ONE- HALF TABLET BY MOUTH EVERY DAY TAKE ONE-HALF TABLET BY MOUTH EVERY DAY SOLD: 10/26/2020 [facility] 25 mg 05/06/2020 12:00:00 AM EDT tablet extended release 24 hr 45 TAKE ONE- HALF TABLET BY MOUTH EVERY DAY TAKE ONE-HALF TABLET BY MOUTH EVERY DAY SOLD: 05/06/2020 [facility] 25 mg 05/06/2020 12:00:00 AM EDT tablet extended release 24 hr 45 TAKE ONE- HALF TABLET BY MOUTH EVERY DAY TAKE ONE-HALF TABLET BY MOUTH EVERY DAY SOLD: 08/07/2020 [facility] 800 mg 01/21/2020 12:00:00 AM EDT tablet 90 TAKE ONE TABLET BY MOUTH THREE TIMES A DAY TAKE ONE TABLET BY MOUTH THREE TIMES A DAY SOLD: 05/06/2020 [facility] 800 mg 01/21/2020 12:00:00 AM EDT tablet 90 TAKE ONE TABLET BY MOUTH THREE TIMES A DAY TAKE ONE TABLET BY MOUTH THREE TIMES A DAY SOLD: 06/28/2020 [facility] 800 mg 01/21/2020 12:00:00 AM EDT tablet 90 TAKE ONE TABLET BY MOUTH THREE TIMES A DAY TAKE ONE TABLET BY MOUTH THREE TIMES A DAY SOLD: 09/21/2020 [facility] 800 mg 01/21/2020 12:00:00 AM EDT tablet 90 TAKE ONE TABLET BY MOUTH THREE TIMES A DAY TAKE ONE TABLET BY MOUTH THREE TIMES A DAY SOLD: 08/07/2020 [facility] Insurance Providers Payer name Policy type / Coverage type Policy ID Covered democrat ID Covered democrat's relationship to [place] Policy [place] Plan Information [employer]OMCO [id number] WI2 [id number] POM[employer] [id number] WI2 [id number] [facility] MEDICAID [facility] [id number] 18 [id number] [facility] O [id number] S [id number] ANSI-Medicaid [id number] ANSI-Medicaid [id number] ANSI-Not a Secondary Insurance [id number] ANSI-Not a Secondary Insurance [id number] ANSI-Not a Secondary Insurance [id number] [facility] [id number] SP [id number] ANSI-Not a Secondary Insurance [id number] [facility] [id number] SP [id number] [facility] Maintenance Organization ([facility] [id number] Self [id number] [facility] Maintenance [facility] ([facility]) [id number] Self [id number] [facility] [id number] SP [id number] SELF PAY O [id number] S O UNAVAILABLE UNAVAILA BLE MILK STREE DAIRY [id number] SP [id number] DAIRY [id number] SP [id number] POMCO-O/P [id number] 01 [id number] [employer] PPO P [id number] P [id number] [facility] [id number] SP [id number] [facility] [id number] SP [id number] [facility] [id number] S [id number] Problems, Conditions, and Diagnoses Code Display Name Description Problem Type Effective Dates Data Source(s) Z79.82 FDC (current) 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 F17.200 Nicotine dependence, unspecified, uncomp licated NICOTINE DEPENDENCE, UNSPECIFIED, UNCOMPLICATED Diagnosis 02/11/2021 08:15:00 PM EDT [facility] K02.9 Dental caries, unspecified DENTAL CARIES, UNSPECIFIED Diagnosis 02/11/2021 08:15:[address] [facility] K08.89 OTHER SPECIFIED DISORDERS OF TEETH AND S UPPORTING STRUCTURES OTHER SPECIFIED DISORDERS OF TEETH AND SUPPORTING STRUCTURES Diagnosis 02/11/2021 08:15:[address] [facility] C07771 Personal history of nicotine dependence Personal history of nicotine dependence Diagnosis 12/10/2020 09:13:[address] [facility] Z5320 Procedure and treatment not carried out because of patient's decision for unspecified reasons Procedure and treatment not carried out because of patient's decision for unspecified reasons Diagnosis 12/10/2020 09:13:[address] [facility] I480 Paroxysmal atrial fibrillation Paroxysmal atrial fibri llation Diagnosis 12/10/2020 09:13:[address] [facility] R002 Palpitations Palpitations Diagnosis 12/10/2020 09:13:[address] [facility] M17.11 [id number] Arthritis of right knee Problem 05/04/2021 12:00:00 AM EDT eCW1 ([facility]) M17.12 [id number] Arthritis of left knee Problem 1 12:00:00 AM EDT eCW1 ([facility]) Surgeries/Procedures Procedure Description Date Indications Data Source(s) Therapeutic, Prophylactic Or Diagnostic Injection Subq/Im 05/12/2021 12:00:00 AM EDT MEDENT ([facility]) OFFICE OUTPATIENT VISIT 15 MINUTES 05/12/2021 12:00:00 AM EDT MEDENT ([facility]) Results ID Date Data Source [id number] 05/12/2021 12:00:00 AM EDT [facility] Name Value Range Interpretation Code Description Data Erika rce(s) Supporting Document(s) SARS-CoV2 Rapid Antigen Negative [facility] This lab was reported by [facility]. ID Date Data Source ADM KNEE COMPLETE 05/04/2021 12:00:00 AM EDT eCW1 ([facility]) Name Value Range Interpretation Code Description Data Erika rce(s) Supporting Document(s) ADM KNEE COMPLETE eCW1 ([facility]) ID Date Data Source PSA SCREENING 05/04/2021 12:00:00 AM EDT eCW1 ([facility]) Name Value Range Interpretation Code Description Data Erika rce(s) Supporting Document(s) 0.72 < 4.00 PSA SCREENING eCW1 ([facility]) ID Date Data Source LIPID PANEL (CARDIAC RISK) 05/04/2021 12:00:00 AM EDT eCW1 ( [facility]) Name Value Range Interpretation Code Description Data Erika rce(s) Supporting Document(s) Triglyceride [Mass/volume] in Serum or Plasma by calculation 121 <150 TRIGLYCERIDES LEVEL eCW1 ([facility]) Cholesterol [Moles/volume] in Serum or Plasma 201 <200 CHOLESTEROL LEVEL eCW1 ([facility]) 161 NON-HDL-C eCW1 ([facility]) Cholesterol in LDL [Mass/volume] in Serum or Plasma by calculation 137 <100 LDL CHOLESTEROL eCW1 ([facility]) Cholesterol in HDL [Moles/volume] in Serum or Plasma 40 >40 HDL CHOLESTEROL eCW1 ([facility]) 5.025 <5 CHOLESTEROL RISK RATIO eCW1 ([facility]) ID Date Data Source [id number] 05/04/2021 12:00:00 AM EDT eCW1 ([facility]) Name Value Range Interpretation Code Description Data Erika rce(s) Supporting Document(s) Hemoglobin A1c/Hemoglobin.total in Blood 5.4 HEMOGLOBIN A1c eCW1 ([facility]) ID Date Data Source FREE T4 & TSH PANEL 05/04/2021 12:00:00 AM EDT eCW1 ([facility]) Name Value Range Interpretation Code Description Data Erika rce(s) Supporting Document(s) 1.710 0.358-3.740 THYROID STIMULATING HORM ONE eCW1 ([facility]) 1.06 0.76-1.46 FREE T4 eCW1 ([facility]) ID Date Data Source Comprehensive Metabolic Profile (CMP) 05/04/2021 12:00:00 AM EDT eCW1 ([facility]) Name Value Range Interpretation Code Description Data Erika rce(s) Supporting Document(s) 16 7-18 BLOOD UREA NITROGEN eCW1 ([facility]) 0.91 0.70-1.30 CREATININE FOR GFR eCW1 ([facility]) 77 70-100 GLUCOSE, FASTING eCW1 ([facility]) 107 98-107 CHLORIDE LEVEL eCW1 ([facility]) 4.2 3.5-5.1 POTASSIUM SERUM eCW1 (Counts include 234 beds at the [facility]) 139 136-145 SODIUM LEVEL eCW1 ([facility]) > 60.0 >56 GLOMERULAR FILTRATION RATE eCW 1 ([facility]) 27 12-78 ALT/SGPT eCW1 ([facility]) 16 7-37 AST/SGOT eCW1 ([facility]) 9.2 8.5-10.1 CALCIUM LEVEL eCW1 ([facility]) 28 21-32 CARBON DIOXIDE LEVEL eCW1 ([facility]) 7.2 6.4-8.2 TOTAL PROTEIN eCW1 ([facility]) 0.6 0.2-1.0 BILIRUBIN,TOTAL eCW1 (Counts include 234 beds at the [facility]) 77 45-117 ALKALINE PHOSPHATASE eCW1 ([facility]) 3.6 3.2-5.2 ALBUMIN eCW1 ([facility]) 1.0 ALBUMIN/GLOBULIN RATIO eCW1 ([facility]) ID Date Data Source CBC - Complete Blood Count 05/04/2021 12:00:00 AM EDT eCW1 ( [facility]) Name Value Range Interpretation Code Description Data Erika rce(s) Supporting Document(s) 11.5 4.0-10.0 WHITE BLOOD COUNT eCW1 ([facility]) 4.36 4.30-6.10 RED BLOOD COUNT eCW1 (Counts include 234 beds at the [facility]) 40.4 42.0-52.0 HEMATOCRIT eCW1 ([facility]) 92.7 80.0-96.0 MEAN CORPUSCULAR VOLUME e CW1 ([facility]) 13.6 13.5-17.5 HEMOGLOBIN eCW1 ([facility]) 31.2 27.0-33.0 MEAN CORPUSCULAR HEMOGLOB IN eCW1 ([facility]) 12.5 11.5-14.5 RED CELL DISTRIBUTION WID TH eCW1 ([facility]) 33.7 32.0-36.5 MEAN CORPUSCULAR HGB CONC eCW1 ([facility]) 333 150-450 PLATELET COUNT, AUTOMATED eCW1 ([facility]) ID Date Data Source [id number] 02/11/2021 09:01:00 PM EDT [place] Soina heller Physician DocumentationClaxmyra-Raji vasques CenterName: Arnold DobsonAge: 55 yrsSex: MaleDOB: 1965MRN: [id number] Date: 02/11/2021Time: 20:15Account#: [id number] MD:ED Physician Mckenzie Abrahamposition Summary:02/11/21 20:42Discharge OrderedLocation: Home Self Care gx6Mkyquxe: an acute exacerbation lg1Fkwkwtdy: have improved bc1Hodlvvlfc: Stable uc1Ggtdtozgc- Dental caries, unspecified sz8Eriukzzs: dk2- With: Jaime Winston DDS- When: 1 - 2 days- Reason: Further diagnostic work-up, Recheck today's complaintsFollowup: dk2- With: Emergency Department- When: As needed- Reason: Worsening of conditionDischarge Instructions:- Discharge Summary Sheet dk2- DENTAL CAVITY mt1Cuunc:- Medication Reconciliation dk2- Medication Reconciliation Form - 2nd Copy wa9Lyqartqnwovri:- Clindamycin HCl 300 mg Oral Capsule- take 1 capsule by ORAL route every 6 hours for 10 days; 40 tn1osaakwf; Refills: 0, Product Selection PermittedHPI:01/1620:33 This 55 yrs old Male presents to ER via Private Vehicle with ni4ytsfmteyrk of Toothache.20:33 Patient presents stating right upper mouth pain associated with uj4jhschz fracture. Patient states dental fracture a few months ago andthen he was eating a piece of hard candy and crunched down. He feltthe tooth break and felt immediate pain in the tooth. For the pastcouple days he has now felt spreading swelling going up into hisright cheek as well as has foul taste/discharge in his mouth. He hasa known history of dental issues, states he knows a dental infectionis brewing. He states he has work tomorrow at 6 AM so have troublegetting to a dentist for the next couple days regardless, requestpain control and antibiotics, denies any allergies. He states heactually took 1600 mg of ibuprofen as he takes this 3 times daily atbaseline for his back, states not much improvement with this.Historical:- Allergies: No known Allergies;- Home Meds:1. metoprolol tartrate 12.5mg Oral tab 1 tab once daily2. aspirin 81 mg oral tab 81 mg daily3. ibuprofen 800 mg Oral tab 1 tab daily- PMHx: None;- PSHx: lung; ankle;- Immunization history: Flu vaccine is up to date.- Social history: Smoking status: Patient uses tobacco products,current every day smoker. ETOH status Denies use of ETOH.- Advance Directives:: None.ROS:20:49 Constitutional: Positive for poor PO intake, Negative for chills, kx8mnrvu. Eyes: Negative for itching, pain, photophobia. ENT: Positivefor dental pain, Negative for rhinorrhea, difficulty swallowing,difficulty handling secretions. Neck: Negative for stiffness, bonytenderness. Cardiovascular: Negative for chest pain, palpitations.Respiratory: Negative for cough, shortness of breath. Abdomen/GI:Negative for abdominal pain, nausea, vomiting, diarrhea. Back:Negative for decreased range of motion, acute changes. MS/extremity:Negative for contusion, decreased range of motion. Skin: Negative forhematoma, jaundice. Neuro: Negative for headache, loss ofconsciousness, seizure activity, syncope. Psych: Negative forauditory hallucinations, visual hallucinations.Exam:20:51 Constitutional: The patient appears in no acute distress, alert, gc5qhzif, non-diaphoretic, non-toxic, well developed, in obvious pain,uncomfortable.20:51 Head/face: Exam is negative for contusion, laceration(s), Noted isswelling, that is mild, of the right cheek, tenderness, that ismild, of the right cheek.20:51 Eyes: Exam is negative for drainage, hyphema.20:51 ENT: Mouth: Lips: normal, Gums: reddened, Tongue: is normal,drooling, is not appreciated, Dental exam: dental caries, that ismoderate, diffusely, fractured teeth are noted, specifically theupper right third molar (#1), upper right second molar (#2), upperright first molar (#3) and upper right second bicuspid (#4), Voice:is normal.20:51 Neck: Exam negative for meningismus, nuchal rigidity.20:51 Chest/axilla: Exam negative for crepitus, flail chest.20:51 Cardiovascular: Exam negative for JVD, tachycardia.20:51 Respiratory: Exam negative for respiratory distress, stridor,tachypnea.20:51 Abdomen/GI: Exam negative for distension, guarding, pulsatile mass.20:51 Back: Exam negative for CVA tenderness, vertebral tenderness.20:51 Musculoskeletal/extremity: Exam is negative for open injury, pelvicinstability.20:51 Skin: Exam negative for cyanosis, pallor.20:51 Neuro: Exam negative for focal neuro deficits, confusion, dysarthria,gait abnormality, weakness.20:51 Psych: Exam negative for delusions, inappropriate behavior.Vital Signs:20:16 BP 152 / 78; Pulse 80; Resp 18; Temp 97.9(TE); Pulse Ox 98% ; Weight nr4160.73 kg (R); Height 6 ft. 3 in. (190.50 cm) (R); Pain 8/10;21:01 BP 124 / 83; ef120:16 Body Mass Index 35.75 (129.73 kg, 190.50 cm) au0Uknvher Coma Score:20:51 Eye Response: spontaneous(4). Verbal Response: oriented(5). Motor vw2Vhymyepy: obeys commands(6). Total: 15.Procedures:20:53 Dental block: Loca tion: periapical block, Medication: Marcaine 0.5%, aj5Tvjvxv: 2 mls were injected, Effect: the patient's symptoms areimproved, markedly, the patient tolerated the procedure well.MDM:20:19 Patient medically screened. dk220:54 Data reviewed: nurses notes. ED course: Patient presenting with pl4jnmjxir dental fractures stating swelling, concern for impendingdental abscess. There is no active pocket for drainage. Patientrequests injection, provided with good effect on pain. Patient didhave a small droop at the right lip which is to be expected withbupivacaine injected in the general area. He is told to monitor it assymptoms should wear off in the next 12 to 18 hours, does have reliefof dental pain at this time. Patient initiated on clindamycin,provided prescription as well as recommendations from multiple dentalclinics/oral surgeons. Patient already taking an excessive amount ofNSAIDs so no further NSAIDs are added, encouraged to reduce hisoverconsumptio n. Patient discharged in stable condition withappropriate return to ER instructions.Dispensed Medications:20:36 Drug: Clindamycin 300 mg [clindamycin HCl 300 mg capsule (1 caps)] ve0Uproi: PO;21:00 Follow up: Response: Medication administered at discharge. ef120:38 Drug: Bupivacaine 0.25 % 10 ml {Note: given by .} Route: im9Qjekhfbyicbr;21:00 Drug: Clindamycin 300 mg [clindamycin HCl 300 mg capsule (1 caps)] xd1Gmrtc: PO;21:00 Follow up: Response: Medication administered at discharge. ef121:00 Drug: Clindamycin 300 mg [clindamycin HCl 300 mg capsule (1 caps)] yc3Skxuc: PO;21:00 Follow up: Response: Medication administered at discharge. jt7Lagcuwhaao:Anabella Miller RN RN fu4EluzkgdRocky Abraham MD MD xb7MllxqfjvwLyric Mckeon RN RN cm4 Name Value Range Interpretation Code Description Data Erika rce(s) Supporting Document(s) ID Date Data Source [id number] 02/11/2021 09:01:00 PM EDT [facility] terName: Arnold DobsonAge: 55 yrsSex: MaleDOB: 1965MRN: [id number] Date: 02/11/2021Time: 20:15Account#: [id number] Fast Hv3Anqgsem MD:Diagnosis: Dental caries, unspecifiedPresentation:01/1620:16 Presenting complaint: Patient states: his tooth broke and now his pr5ojbp is swollen. Coronavirus Screening: Have you been diagnosed withCOVID-19 in the past 30 days? no [facility] no Flu-like symptoms reported in the last 14 days: no.Have you had close contact with confirmed or suspected COVID-19 case?no Do you live in a setting where a large of amount of people live,such as long-term, family care, group home, etc? no. Have you traveledto a location with widespread or ongoing COVID-19 community spread [facility]? no Have you traveled internationally or hadcontact with someone that has traveled and has been ill in the past 3weeks? no Have you received the COVID vaccine? No. CommunicableDisease Screen: Negative for fever>/= 100 degrees Fahrenheit.Communicable disease screen is negative. (-) rash or unusual skinlesion (-) travel/contact with traveler (-) respiratory symptoms.Communication Speaks Arabic? Yes, is preferred language.20:16 Acuity: Triage 4 cm420:16 Acuity Assignment: Triage 4 cm420:16 Method Of Arrival: Private Vehicle bk9Dbvipa Assessment:20:17 General: Appears in no apparent distress, Behavior is cooperative. eg3Ijtqck Screening: (1)Signs/symptoms infection No. Pain: Com plains ofpain in right cheek and right jaw, tooth Pain does not radiate. Paincurrently is 8 out of 10 on a pain scale. Scaled used was VerbalQuality of pain is described as stabbing, throbbing, Pain began 2-3days ago. PSS-3 Now I'm going to ask you some questions that we askeveryone treated here, no matter what problem they are here for. Itis part of the hospital's policy and it helps us to make sure we arenot missing anything important. Over the past 2 weeks, have you feltdown, depressed, or hopeless? No. Over the past 2 weeks, have hadthoughts of killing yourself? No. In your lifetime, have you everattempted to kill yourself? No. EENT: Reports pain in tooth on rightupper side. Neuro: Level of Consciousness is awake, alert.Respiratory: Airway is patent Respiratory effort is even, Respiratorypattern is regular. Musculoskeletal: No deficits noted.Historical:- Allergies: No known Allergies;- Home Meds:1. metoprolol tartrate 12.5mg Oral tab 1 tab once daily2. aspirin 81 mg oral tab 81 mg daily3. ibuprofen 800 mg Oral tab 1 tab daily- PMHx: None;- PSHx: lung; ankle;- Immunization history: Flu vaccine is up to date.- Social history: Smoking status: Patient uses tobacco products,current every day smoker. ETOH status Denies use of ETOH.- Advance Directives:: None.Screenin:20 Abuse screen: Denies threats or abuse. Nutritional screening: No hg7mmqguefs noted. Offer of HIV testing: patient was previously offeredscreening. Fall Risk None identified.Assessment:20:20 Reassessment: No changes from previously documented assessment. po1Irpbm Signs:20:16 BP 152 / 78; Pulse 80; Resp 18; Temp 97.9(TE); Pulse Ox 98% ; Weight tq3788.73 kg (R); Height 6 ft. 3 in. (190.50 cm) (R); Pain 8/10;21:01 BP 124 / 83; ef120:16 Body Mass Index 35.75 (129.73 kg, 190.50 cm) se1Bksyray Coma Score:20:51 Eye Response: spontaneous(4). Verbal Response: oriented(5). Motor uf3Rwqoldxy: obeys commands(6). Total: 15.ED Course:20:15 Patient arrived in ED. cm420:16 Triage completed. cm420:19 Rocky Abraham MD is Attending Physician. dk220:20 Patient has correct armband on for positive identification. Bed in cm4low position. Call light in reach. Side rails up X 1. Verbalreassurance given. Pillow given. Family accompanied patient.20:36 Lyric Mckeon, LIZZIE is Primary Nurse. cm420:41 Jaime Winston DDS is Referral Physician. dk221:01 No Physician assisted procedures completed. li1Znrinckhulsv Medications:20:36 Drug: Clindamycin 300 mg [clindamycin HCl 300 mg capsule (1 caps)] xf2Crdsw: PO;21:00 Follow up: Response: Medication administered at discharge. ef120:38 Drug: Bupivacaine 0.25 % 10 ml {Note: given by MD.} Route: no0Matqdxlrjsfe;21:00 Drug: Clindamycin 300 mg [clindamycin HCl 300 mg capsule (1 caps)] sv6Llkhg: PO;21:00 Follow up: Response: Medication administered at discharge. ef121:00 Drug: Clindamycin 300 mg [clindamycin HCl 300 mg capsule (1 caps)] oq5Jwnsj: PO ;21:00 Follow up: Response: Medication administered at discharge. yc7Xuifdwz:20:42 Discharge ordered by . dk221:01 Disposition: Discharged to home ambulatory. ef121:01 Condition: stable, Provider notified of abnormal vital signs.21:01 Discharge instructions given to patient, Instructed on dischargeinstructions, follow up and referral plans. medication usage,Demonstrated understanding of instructions, medications,Prescriptions given X 1.21:01 Discharge Assessment: Patient verbalized understanding of dispositioninstructions. Patient able to independently transfer in/out of bedand/or chair with little or no assistance.21:01 Patient left the ED. pg7Jgpqdwgrub:Anabella Miller RN RN db8SskofffRocky Abraham MD MD dr5VcjukwfaiLyric Mckeon RN RN cm4 Name Value Range Interpretation Code Description Data Erika rce(s) Supporting Document(s) ID Date Data Source [id number] 12/14/2020 10:18:00 AM EDT [facility] [address] [place] [address] PHONE: [phone] FAX: [phone] Name .................. : [place] Acct Number.................. : [id number] ROOM. ................. : [address] Number ................... : [id number] Stay type ............. : E/R Discharge Date......... ... : Admit Date ......... : 0 12/10/20 Admit Phys .................... : [facility] Date of ....... : 1965 [facility] ................... [facility] Phone .................. : [phone] Age ................................ : 55 Film# .................. .:[id number] Sex ................................. : M Unsigned transcriptions are preliminary reports and do not represent a medical or legal document CHEST PORTABLE [id number] COMPLETE:12/10/20 21:57 RLB [id number] Reason(s): Chest Pain PORTABLE CHEST X-RAY: INDICATION: Chest pain. FINDINGS: The lungs are expanded. No infiltrate or effusion. Old healed posterolateral right rib fractures. The cardiac silhouette is within normal limits. IMPRESSION: No acute cardiopulmonary disease. Electronically Reviewed and Signed By Jesus Gonzales DO , 12/14/20 10:18, ANTHONY Transcribe Initials: STEPHANIE , Transcribe Date: 12/11/20 00:31, Dictation Date: Copy for: EMERGENCY DEPT via modem Copy for: 710 MED REC DISCHARGED Page 1 of 1 Name Value Range Interpretation Code Description Data Erika rce(s) Supporting Document(s) ID Date Data Source [id number] 12/12/2020 08:48:00 [place] [address] RESPIRATORY CARE REPORT ==== ---------NAME------- NUMBER SEX AGE ADMIT DISC. XRAY# F/C RAMESHTRACEY ARNOLD T [id number] M 55 12/10/20 12/11/20 [id number] XB2 E/R DATE OF : 1965 M/R# [id number] #: [id number] VT-16 LOCATION: EMERGENCY DEPT EKG [id number] COMPLE TE:12/11/20 00:55 [place] [id number] PHYSICIAN: JOVANNA Name Value Range Interpretation Code Description Data Erika rce(s) Supporting Document(s) ID Date Data Source [id number] 12/10/2020 09:13:[address] [facility] [address] [facility] Emergency Department [address] [place] [address] Phone #: qre- [phone] 12/10/2020 21:08 Patient: ARNOLD ESPARZA Sex: M : 1965 Age: 55yWEIGHT:117.9 kg (S) HEIGHT:76 inches (S) BMI:31.7ALLERGIES: No Known Drug AllergyCHIEF COMPLAINT: palpitationsDIAGNOSIS: Atrial fibrillationLAB ORDERSOrder Description Priority Entered Acknowledged InitialedCBC w Diff STAT 21:12/10/2020 21:31 Emily Bojorquez RN ;CMP STAT 21:12/10/2020 21:31 Emily Bojorquez RN ;Lipase STAT 21:12/10/2020 21:31 Emily Bojorquez RN ;PT/PTT STAT 21:12/10/2020 21:31 Emily Bojorquez RN ;Troponin-T STAT :12/10/2020 21:31 Emily Bojorquez RN ;TSH STAT :12/10/2020 21:31 Emily Bojorquez RN ;T4 Free STAT 21:12/10/2020 21:31 Emily Bojorquez RN ;Troponin-T STAT 00:29 12/11/2020 Cancelled: Patient Refusal 01:20 Emily Cat RN ;DIAGNOSTIC STUDY ORDERSOrder Description Priority Entered Acknowledged InitialedChest Portable 1 STAT :12/10/2020 21:31 Zander Odom RN(Oxygen?(No)) ; Reason for Study: Chest Pain [address] [facility] Emergency Department [address] [place] [address] Phone #: ext- [phone] 12/10/2020 21:08 -------- Patient: ARNOLD ESPARZA Sex: M : 1965 Age: 55yMEDICATION/IV/DRIP/FLUID ORDERSOrder Description Priority Entered Acknowledged InitialedAspirin PO 21:12/10/2020 21:36 Yobani 81 mg Emily Nugent RN324 mg (NOW) ;Cardizem IVP 10 21:25 12/10/2020 21:54 Jaycee,mg (NOW) Emily Nugent R.N. ;NS IV : 200 mL/hr 21:26 12/10/2020 21:54 Jovanna Champion Victoria John R.N. ;Cardizem Drip IV : 21:43 12/10/2020 22:13 Jaycee,10 mg/hr (Add 125 Emily Nugent R.N.mg (25 mL) to 100 ;mL NS to get 125mg/125 mL (1mg/mL))NS IV 1000 mL 22:01 12/10/2020 22:50 Lina Ku: : Bolus 1000 Emily Nugent R.NGarethmL (X1) ;Ativan IVP 2 mg 22:21 12/10/2020 22:25 Jaycee,(NOW x1, HIGH Emily Nugent R.N.ALERT ;MEDICATION)Insulin Reg IVP 6 23:51 12/10/2020 Cancelled: Wrong Patient 23:54units (HIGH ALERT Emily Nugent VictoriaMEDILAKSHMI, ;NOW)Metoprolol PO 25 01:05 12/11/2020 01:10 Stevenmg (NOW x1) Emily Nugent RN ;GENERAL ORDERSOrder Description Priority Entered Acknowledged InitialedEKG 21:18 12/10/2020 21:31 Emily Bojorquez RN ;Blood Pressure 21:25 12/10/2020 21:31 Emily Quiñonez RN ;Circular [place] 21:25 12/10/2020 21:31 Glenn(continuous) Emily Nugent RN [address] [facility] Emergency Department [address] [place] [address] Phone #: ext- [phone] 12/10/2020 21:08 [id number] Sex[facility] M : 1965 Age: 55y ;EKG 21:12/10/2020 21:31 Emily Bojorquez RN ;NPO 21:12/10/2020 21:31 Emily Bjoorquez RN ;Obtain Old EKG :12/10/2020 21:31 Emily Bojorquez RN ;Obtain Old Records 21:12/10/2020 21:31 Emily Bojorquez RN ;Oxygen titrate to 21:12/10/2020 21:31 Glenn92% Emily Nugent RN ;Pulse oximeter :12/10/2020 21:31 Glenn(Continuous) Emily Nugent RN ;Saline Lock :12/10/2020 21:31 Emily Bojorquez RN ;Vitals :12/10/2020 21:31 Emily Bojorquez RN ;EKG 00:29 12/11/2020 Cancelled: Patient Refusal 01:20 Emily Cat RN ;[Electronically signed by David Britton RN (:12/11/2020)][Electronically signed by Emily Nugent (07:12/11/2020)][Electronically locked by David Britton RN (:12/11/2020)] Name Value Range Interpretation Code Description Data Erika rce(s) Supporting Document(s) ID Date Data Source [id number] 12/10/2020 09:13:[address] [facility] [address] [facility] Emergency Department [address] [place] [address] Phone #: ext- [phone] 12/10/2020 21:08 Patient: ARNOLD ESPARZA Sex: M : 1965 Age: 55yWeight: 117.9 kgHeight/Length: 76 in.BMI: 31.7ALLERGIES: No Known Drug AllergyThe patient's Home Medications are listed below:STOP TAKING THE FOLLOWING MEDICATIONS: Metoprolol Tartrate Oral 12.5, dailyCONTINUE TAKING THE FOLLOWING MEDICATIONS: Aspirin Oral (81 mg) 1 tablet, dailyThe source(s) of the original Home Medication information:Not obtained.The following Medications were given to the patient in the Emergency Department:ASPIRIN CHEWABLE 81 MG [PO] PO 324 mg, administered: 21:36 12/10/2020ardizem [IVP] IVP 10 mg, administered: 21:53 12/10/2020NS [IV] IV Fluids bolus 0, then 200 mL/hr, administered: 21:54 12/10/2020ardizem [IV Drip] Drip IV bolus 0, then 10 mg 10 mg/hr, administered: 22:13 12/10/2020tivan [IVP] IVP 2 mg, administered: 22:25 12/10/2020NS [IV] IV Fluids bolus 0, then 1000 mL/hr, administered: 22:40 12/10/2020Metoprolol [PO] PO 25 mg, administered: 01:10 12/11/2020The following Medications were prescribed to the patient:metoprolol tartrate 25 mg tablet Take 1 tablet once a day for 30 days -- Dispense 30 tablet. Refills: 0.Substitution permitted. [address] [facility] Emergency Department [address] [place] [address] Phone #: ext- [phone] 12/10/2020 21:08 Patient: ARNOLD ESPARZA Sex: M : 1965 Age: 55yPharmacy - [id number] - [id number] ; [place], [place] [id number]. . -- BhumikaEmily tucker Name Value Range Interpretation Code Description Data Erika rce(s) Supporting Document(s) ID Date Data Source [id number] 12/10/2020 09:13:[address] [facility] [address] [facility] Emergency Department [address] [place] [address] Phone #: ext- [phone] 12/10/2020 21:08 Patient: ARNOLD ESPARZA Sex: M : 1965 Age: 55yWeight: 117.9 kgHeight/Length: 76 inBMI: 31.7ALLERGIES: No Known Drug Allergy Date/Time Medication Administered Medication OrderedGiven ASPIRIN CHEWABLE 81 MG [PO] Aspirin PO Chewable 81 mg 61762:36 12/10/2020 Dose: 324 mg Tablets PO mg (NOW)Glenn Shah RNGiven CARDIZEM [IVP] (DILTIAZEM HCL) Cardizem IVP 10 mg (NOW)21:53 12/10/2020 Dose: 10 mg IVPGKvng stewart R.N. Site: #1 right forearmStart NS [IV] NS IV : 200 mL/hr21:54 12/10/2020 Dose: IV FluidsKvng Champion R.N. Rate: 200 mL/hr over 5 hour(s)---- Dispensed: 1000 mL bagStop Site: #1 right htbkywe83:30 12/10/2020Lina Britton R.N.Start CARDIZEM [IV DRIP] Cardizem Drip IV : 10 mg/hr (Add22:13 12/10/2020 Dose: 10 mg Drip IV 125 mg (25 mL) to 100 mL NS Kvng Daniels R.N. Rate: 10 mg/hr over 12 hour(s) get 125 mg/125 mL (1 mg/mL))---- Dispensed: 125 mL bagStop Site: #1 right pewxoed49:08 12/11/2020Paty Felton NS [IV] NS IV 1000 mL Bolus: : Bolus 587931:40 12/10/2020 Dose: IV Fluids mL (X1)Lina Castillo Britton R.N. Rate: 1000 mL/hr---- Dispensed: 1000 mL bagStop Site: #1 right fzfoops99:30 12/10/2020Ion Felton ATIVAN [IVP] (LORAZEPAM) Ativan IVP 2 mg (NOW x1, HIGH22:25 12/10/2020 Dose: 2 mg IVP ALERT MEDICATION)Kvng Champion R.N. Site: #1 right forearmGiven METOPROLOL [PO] Metoprolol PO 25 mg (NOW x1)01:10 12/11/2020 Dose: 25 mg Tablets POStevstacy Britton RN Name Value Range Interpretation Code Description Data Erika rce(s) Supporting Document(s) ID Date Data Source [id number] 12/10/2020 09:13:[address] [facility] [address] [facility] Emergency Department [address] [place] [address] Phone #: ext- [phone] 12/10/2020 21:08 Patient: ARNOLD ESPARZA Sex: M : 1965 Age: 55yParoxysmal atrial fibrillation with uncontrolled rate.INSTRUCTIONS(you were advised admission but you refused and signed out AMA. increase your metoprolol to 25 mgdaily).Your Current Medications: Your current home medications have been reviewed.STOP TAKING THE FOLLOWING MEDICATIONS:Metoprolol Tartrate Oral : 12.5 daily.CONTINUE TAKING THE FOLLOWING MEDICATIONS:Aspirin Oral : Tablet Chewable 81 mg, 1 tablet daily.Prescription Medications:metoprolol tartrate 25 mg tablet Take 1 tablet once a day for 30 days -- Dispense 30 tablet. Refills: 0.Substitution permitted.Pharmacy - [facility] - [id number] ; [place], [place] [id number]. .Follow-up:Follow up with your healthcare provider tomorrow. Reason for referral: evaluation and treatment. Summaryof care provided to patient via paper.AMA warnings: Time of assessment: 00:56 12/11/2020. Oriented to person, place, and time. Givesappropriate answers and rational explanation of refusal of care. Speaks coherently. No signs ofpsychosis, auditory hallucinations, del usional thinking, suicidal ideations or slurred speech. No tangentialthinking, visual hallucinations or homicidal ideations. Abstract thinking intact.Clinical Impression: the patient has the capacity to make decisions regarding the medical care offered.Aware of suspected diagnosis suggested by screening exam. The suspected diagnosis, based upon theinitiated medical screening exam, is atrial fibrillation with RVR and has been discussed with the patient.Acknowledges understanding of the reasons for recommendations regarding medical treatment, medicaltests and admission to facility. The recommended medical care being refused is admission and has beendiscussed with the patient. The risks of refusing recommended care that were disclosed andacknowledged are permanent mental impairment, loss of sexual function and loss of current lifestyle; therisks of refusing recommended care that were disclosed are . Discharge instructions were provided.Follow-up with: Tye Izquierdo MD, Cardiology, , [address] [place] [address], [facility] Follow up tomorrow if not better. Call for an appointment. Reason for referral: evaluation. [address] [facility] Emergency Department [address] [place] [address] Phone #: ext- [phone] 12/10/2020 21:08 Patient: ARNOLD ESPARZA Sex: M : 1965 Age: 55y ADDITIONAL INFORMATIONAtrial FibrillationAtrial fibrillation is a condition in which the heart beats in an irregular pattern. It is the most commonabnormal heart rhythm. It is caused by a problem in the heart's electrical pathways within the muscleof the upper chambers of the heart (atria). It can be a sign of heart disease or other health problemsthat affect the heart.Heart palpitations are a common symptom of atrial fibrillation. This is the feeling that your heart isfluttering, or beating fast, hard, or irregular . When the heart beats too fast, it doesn't pump blood verywell. This can cause other symptoms such as anxiety, fatigue, shortness of breath, chest pain,dizziness, or fainting. Atrial fibrillation may come and go. It can last from a few hours to a couple ofdays. Or it may become rat exterminator (chronic), lasting for months at a time or even become permanent.Some symptoms of atrial fibrillation are hard to notice. They include feeling less able to exercise.Some people have no symptoms.Atrial fibrillation is more common in older adults. It may be caused by heart disease or otherconditions in the body that affect the heart. They include: [address] [facility] Emergency Department [address] [place] [address] Phone #: ext- [phone] 12/10/2020 21:08 Patient: ARNOLD ESPARZA Sex: M : 1965 Age: 55y Coronary artery disease (atherosclerosis) . It is sometimes called blocked arteries. High blood pressure Disease of the heart valves Enlarged heart Heart failureAtrial fibrillation can also occur without heart disease because of: Overactive thyroid (hyperthyroid) Chronic lung disease (COPD, emphysema, or bronchitis) Heavy alcohol use Heart stimulants such as cocaine, amphetamines, diet pills, certain decongestant cold medicines, caffeine, or nicotine Infection Blood clot in the lung (pulmonary embolus) Diabetes Chronic kidney disease Obesity Extreme and continued athletic conditioning Certain genetic diseasesTreating or removing these causes will help your treatment for atrial fibrillation. It will also make it lesslikely for it to come back.Atrial fibrillation can alternate back and forth with another abnormal rhythm called atrial flutter. Atrialflutter is a more regular heart rhythm. It also linked to an increased risk for stroke. Proper treatmentcan lower your risk for stroke.Home careFollow these guidelines when caring for yourself at home: Go back to your usual activities as soon as you are feeling back to normal. If you smoke, stop smoking. Contact your healthcare provider or a local stop-smoking program for help. [address] [facility] Emergency Department [address] [place] [address] Phone #: ext- [phone] 12/10/2020 21:08 Patient: ARNOLD ESPARZA Sex: M : 1965 Age: 55y Don't use stimulants like alcohol, cocaine, amphetamines, diet pills, certain decongestant cold medicines, caffeine, or nicotine. If your provider prescribed medicine to stop atrial fibrillation from coming back, take it exactly as directed. Some medicines must be taken every day, not just when you have symptoms. This will help them work as they should. If you were prescribed a blood-thinning medicine called warfarin to lower your risk for stroke, have your blood tested regularly as advised by your provider. This will make sure you are getting the dose that is right for you. It also lowers your risk for side effects. You may have been prescribed other blood- thinning medicines that don't need regular testing.Follow-up careFollow up with your healthcare provider, or as advised.When to seek medical adviceCall your [facility]erc[facility] provider right away if any of these following occur: Swelling in the legs that gets worse Unexpected weight gain Bleeding easier than normal Pain, redness, or swelling in one legCall 911Calling 911 is the fastest and safest way to get the emergency department. The paramedics can alsostart treatment on the way to the hospital, if needed.Call 911 or seek medical help right away if any of the following occur: Weakness of an arm or leg or one side of the face Chest pain Shortness of breath, or feeling that you can't get enough air Feeling lightheaded, faint, or dizzy Your heartbeat is very rapid, slow, or irregular compared with your regular heartbeat Bleeding that is not easily controlled Trouble with speech or vision [address] [facility] Emergency Department [address] [place] [address] Phone #: ext- [phone] 12/10/2020 21:08 Patient: ARNOLD ESPARZA Sex: Ann Marie : 1965 Age: 55y Extreme drowsiness, confusion, dizziness, or fainting [phone] rumr: turn off the lights. [address] [place] [address]. All rights reserved. This information is not intended as asubstitute for professional medical care. Always follow your healthcare professional's instructions. You have been given the following additional information: Atrial Fibrillation(Electronically signed by Emily Nugent 12/11/2020 07:01) Name Value Range Interpretation Code Description Data Erika rce(s) Supporting Document(s) ID Date Data Source [id number] 12/10/2020 09:13:[address] [facility] 1 Clinical Report - Nurses [facility] Emergency Department [address] [place] [address] Phone #: ext- [phone] 12/10/2020 21:08 Patient: ARNOLD ESPARZA Sex: M : 1965 Age: 55yTRIAGEArrived by private vehicle. Historian: patient.Acuity: LEVEL 3.Chief Complaint: CHEST PAIN and DISCOMFORT and (palpatations).This started just prior to arrival. ( pt states he was at home and had a drink of cold milk and suddenly hefelt his heart pounding, voices pa lpatations, this has happened to him in the past also).Treatment SHACKLER:None.SEPSIS SCREEN: SIRS SCREEN NEGATIVE: heart rate greater than 90. SEPSIS SCREEN NEGATIVE.No suspected or confirmed signs of infection present.LISANDRO COMA SCORE: 15- eyes open- spontaneous (4); best verbal response- oriented (5); bestmotor response- obeys commands (6). --21:26 12/10/20 Glenn Shah RN21:20 12/10/20. BP: 113/73. MAP: 86. HR: 118. RR: 18. O2 saturation: 96% on room air. Temp: 96.6 F(oral). Pain level now: 0/10. --21:26 12/10/20 Glenn Shah RN.Weight: 117.9 kg stated. Height/Length: 76 inches Per Patient. BMI: 31.7. --21:20 12/10/20 Glenn Shah RN.MedicationsMetoprolol Tartrate Oral 12.5, daily. --21:30 12/10/20 Glenn Shah RN Aspirin Oral (Tablet Chewable 81 mg) 1 tablet, daily. --21:36 12/10/20 Glenn Shah RN.AllergiesNo Known Drug Allergy. --21:29 12/10/20 Glenn Shah RN.PROBLEMS:Atrial Fibrillation. --21:30 12/10/20 Glenn Shah RN.ADDITIONAL SURGERIES:Right lung lobectomy. --21:30 12/10/20 Glenn Shah RN.HistoryPAST MEDICAL HX: Immunizations: up-to-date.SOCIAL HX: Former smoker, end date 07/2020. No alcohol use or drug use. He was offered HIV testing 2 Clinical Report - Nurses [facility] Emergency Department [address] [place] [address] Phone #: ext- [phone] 12/10/2020 21:08 [id number] : 1965 Age: 55y but declined and hepatitis C testing but declined. He has not traveled outside the [place] Infectious disease exposure: No infectious disease exposure. The patient was not exposed to Coronavirus. SELF HARM ASSESSMENT: Self harm assessment was performed. The patient answered "no" to the question(s) "Have you recently felt down, depressed, or hopeless?", "Do you have thoughts of harming or killing yourself?", "Do you have a plan for harming or killing yourself?", "Have you recently had thoughts about harming or killing others?", "Do you have any dangerous items in your possession?", "Have you noticed less interest or pleasure in doing things?", "Are you here because you tried to hurt yourself?" and "Have you ever tried to hurt yourself before today?". ABUSE ASSESSMENT: No report of abuse. NUTRITIONAL RISK ASSESSMENT: The nutritional risk assessment revealed no deficiencies. FUNCTIONAL ASSESSMENT: Functional assessment: no impairments noted. LEARNING NEEDS ASSESSMENT: The learning needs assessment revealed no barriers. FALL RISK ASSESSMENT: Fall risk assessment completed. No risk factors identified. SKIN INTEGRITY ASSESSMENT: Skin integrity risk assessment completed. No skin integrity risk identified. --21:12/10/20 Glenn Shah RN. Interventions To treatment room. --:12/10/20 Glenn Shah RN.PHYSICAL ASSESSMENTGENERAL / NEURO / PSYCH: Alert. Oriented X 4. Appears anxious.RESPIRATORY: Respirations not labored.CVS: Cardiac rhythm: atrial fibrillation with rapid ventricular response.GI / : Abdomen soft.EXTREMITIES: No lower extremity edema.SKIN: Skin is warm and dry. --22:14 12/10/20 Kvng Champion R.N. 22:14 12/10/20. BP: 111/86. MAP: 94. HR: 113. RR: 16. O2 saturation: 100%. Temp: deferred. Pain level now: 0/10. --22:15 12/10/20 Kvng Champion R.N.NURSING PROGRESS NOTES21:32 12/10/2020 Site #1 started via IV in the right forearm with an 20g angiocath, with aseptic techniqueand good blood return; one attempt. Blood drawn: rainbow set and green tube(s). Labeled in the presenceof the patient and sent to the lab. Saline lock flushed with 10 mL saline (per Kvng SAMUEL). --21:33 12/10/20Glenn Shah RN secured entrance monitor, NIBP monitor and pulse oximeter placed on patient; library monitor- Lead II; monitor 3 Clinical Report - Nurses [facility] Emergency Department [address] [place] [address] Phone #: ext- [phone] 12/10/2020 21:08 Patient: ARNOLD ESPARZA Sex: M : 1965 Age: 55yalarms on. EKG time: (21:22 12/10/2020). EKG was performed by a nurse and shown to the EDphysician. Patient gowned. Head of bed elevated. Reassurance given. Call light placed in reach.Side rails up x 2. Bed placed in lowest position. Brakes of bed on. Patient ready for evaluation- EDphysician notified. --21:33 12/10/20 Glenn Shah RN21:33 12/10/20. BP: 113/73. MAP: 86. HR: 120. RR: 18. O2 saturation: 97%. Pain level now: 0/10.--21:34 12/10/20 Glenn Shah RN( vital signs just prior to administration of cardizem). --21:34 12/10/20 Glenn Shah RN21:36 12/10/2020 ASPIRIN CHEWABLE 81 MG PO Tablets 324 mg given. Allergies verified and confirmed5 rights. Information reviewed with patient including reason for taking this medication. Verbalizesunderstanding. --21:36 12/10/20 Glenn Shah RN21:37 12/10/20. BP: 93/66. MAP: 75. HR: 109. RR: 18. Pain level now: 0/10. --21:38 12/10/20 LIZZIE Reynolds( vitals directly after Cardizem admin istration). --21:38 12/10/20 Glenn Shah RN21:53 12/10/2020 Cardizem (dilTIAZem HCl) IVP 10 mg given over 3 minute(s) via site #1. --21: Kvng Champion R.N.21:54 12/10/2020 Started bag #1 1000 mL IV Fluids NS; at 200 mL/hr over 5 hour(s) via site #1 --21:5412/10/20 Kvng Champion R.N.22:13 12/10/2020 Started 10 mg of Cardizem Drip IV in bag #1 125 mL; at 10 mg/hr over 12 hour(s) via site#1. --22:13 12/10/20 vKng Champion R.NGareth22:25 12/10/2020 Ativan (LORazepam) IVP 2 mg given over 3 minute(s) via site #1. --22:25 12/10/20Kvng Champion R.N.22:34 12/10/20. BP: 111/73. MAP: 85. HR: 106. RR: 19. O2 saturation: 91% on room air. Pain level now:0/10. Additional comments: while sleeping. 2LNC applied sats increased to 97%. --22:49 12/10/20 Serafin Britton R.N.22:30 12/10/2020 IV Fluids NS via IV site #1 Discontinued: STOPPED. Total amount infused: 10 mL. IVpatency established. IV site checked: no pain, redness, or swelling. IV flushed thoroughly. --22:50 12/10/20Lina Britton R.N.22:40 12/10/2020 Started bag #1 1000 mL IV Fluids NS; at 1000 mL/hr via site #1 via IV pump. Allergiesverified and confirmed 5 rights. IV patency established. IV site checked: no pain, redness, or swelling. IVflushed thoroughly pre- and post- medication administration. Information reviewed with patient includingreason for taking this medication. Verbalizes understanding. --22:50 12/10/20 Lnia Britton R.N. 4 Clinical Report - Nurses [facility] Emergency Department [address] [place] [address] Phone #: ext- [phone] 12/10/2020 21:08 Patient: ARNOLD ESPARZA Sex: M : 1965 Age: 55y 23:30 12/10/2020 IV Fluids NS via IV site #1 Discontinued: bag #2 completed. Total amount infused: 1000 mL. IV patency established. IV site checked: no pain, redness, or swelling. IV flushed thoroughly. --01:17 12/11/20 David Britton RN 01:08 12/11/2020 Cardizem Drip IV via IV site #1 Discontinued: discontinued upon discharge. Total amount infused: 20 mL. IV patency established. IV site checked: no pain, redness, or swelling. IV flushed thoroughly. --01:18 12/11/20 David Britton RN 01:10 12/11/2020 Metoprolol PO Tablets 25 mg given. Allergies verified and confirmed 5 rights. Information reviewed with patient including reason for taking this medication, signs of allergic reaction and precautions. Verbalizes understanding. --01:10 12/11/20 David Britton RN.DISPOSITION / DISCHARGE Oden Coma Scale: 15- eyes open- spontaneous (4); best verbal response- oriented (5); best motor response- obeys commands (6). The patient left the Emergency Department; patient was unaccompanied. The patient appears to be alert, oriented x4 and belligerent. He stated is leaving due to personal reasons. Prior to leaving, he was advised to stay for completion of treatment and return if needed. He was informed of the risks of leaving and verbalized understanding of these risks. Patient signed form prior to leaving. He left the Emergency Department ambulatory and via private vehicle. --:12/11/20 David Britton RN 01:13 12/11/20. BP: 101/57 (regular adult cuff) taken on the right arm, via an automated monitor, while lying. MAP: 71. HR: 109 (regular, normal rate and strong). RR: 18 (regular and normal). O2 saturation: 96% on room air. Temp: 97.2 F (oral). Pain level now: 0/10. --:12/11/20 David Britton RN Departure time: :18 12/11/2020. --:12/11/20 David Britton RN ( Refused EKG and repeat trop at 0030). --:12/11/20 David Britton RN.Locked/Released at 12/11/2020 01:20 by David Britton RN Name Value Range Interpretation Code Description Data Erika rce(s) Supporting Document(s) ID Date Data Source [id number] 12/10/2020 09:13:[address] [facility] 1 Clinical Report - Physicians/Mid Levels [facility] Emergency Department [address] [place] [address] Phone #: ext- [phone] 12/10/2020 21:08 Patient: ARNOLD ESPARZA Sex: M : 1965 Age: 55y Time Seen: 21:11 12/10/2020; initial patient contact, initial documentation. Arrived- By private vehicle. Historian- patient. Disposition decision: 00:41 12/11/2020.HISTORY OF PRESENT ILLNESS Chief Complaint: PALPITATIONS. This started today a few hours SHACKLER and is still present (persistent). (patient was eating and accidentally drank cold milk which triggered the rapid heart rate). Did not begin during emotional upset. No history of caffeine use prior to onset, decongestants use prior to onset, cocaine use prior to onset or amphetamine use prior to onset. It was abrupt in onset. It is described as a fast and pounding heart beat. He did not lose consciousness. He did not feel like might "pass out". Not described as dizziness. Modifying factors- (worsen by cold drinks). Not relieved by anything. The patient has had chest discomfort and chest pain. No difficulty breathing, fainting episodes, dizziness, tingling or muscle spasms. ( Patient has a history of atrial fibrillation and is on metoprolol 12.5 mg daily. he states that he goes in and out of atrial fibrillation. he is not on any anticoagulants. he states that cold drinks usually triggers the atrial fibrillation. he had an echo done by DR Ang 3 years ago and was told everything was fine. patient had some mild chest discomfort with the palpitation). Treatment SHACKLER: (none).REVIEW OF SYSTEMSNo fever, chills, cough, orthopnea or calf pain. No headache, sore throat, blurred vision, nausea orabdominal pain. No black stools, difficulty with urination, skin rash, depression or trouble sleeping. Novomiting, diarrhea or bloody stools. The patient has not had a poor appetite. All other systems reviewedand are negative.PAST HISTORYSee nurses notes. Problems: Atrial Fibrillation. Additional Surgeries: Right lung lobectomy. Medications: Metoprolol Tartrate Oral 12.5, daily. Allergies: No Known Drug Allergy.SOCIAL HISTORYFormer smoker, end date 4 months ago. No alcohol use or drug use. 2 Clinical Report - Physicians/Mid Levels [facility] Emergency Department [address] [place] [address] Phone #: ext- [phone] 12/10/2020 21:08 [id number] Sex: [facility] : 1965 Age: 55yADDITIONAL NOTESThe nursing notes have been reviewed.PHYSICAL EXAMVital Signs: 12/10/2020 21:33 BP: 113/73. MAP: 86. HR: 120. RR: 18. O2 saturation: 97%. Pain level now:0/10.12/10/2020 21:20 BP: 113/73. MAP: 86. HR: 118. RR: 18. O2 saturation: 96% on room air. Temp: 96.6 F.Pain level now: 0/10. Have been reviewed. Tachycardic. Oxygen saturation normal.Appearance: Alert. No acute distress.Eyes: Pupils equal, round and reactive to light. Eyes normal inspection.Neck: Normal inspection. Neck supple.CVS: Tachycardia. Abnormal rhythm, which is irregularly irregular. No extra heart sounds. PMI notdisplaced laterally. No decreased pulses.Respiratory: No respiratory distress. Painless inspiration. Breath sounds normal. Chest nontender.Abdomen: Soft and nontender. Bowel sounds normal. No organomegaly. No mass. Femoral pulsesequal.Back: Normal external inspection. No CVA tenderness.Skin: Skin warm and dry. Normal skin color. No rash. Normal skin turgor.Extremities: Extremities exhibit normal ROM. No lower extremity edema.Neuro: Oriented X 3.LABS, X-RAYS, AND EKGEKG: EKG time: 21:22 12/10/2020. Rate: 127. Atrial fibrillation. Mild T wave inversion in lead II, III andaVF- consistent with ischemia. No T wave inversion in lead I. EKG unchanged when compared with priorEKG. (05/11/2018). The study has been interpreted contemporaneously by me. The study has beenindependently viewed by me. The EKG appears to be a good tracing. Interpretation time: :.Laboratory Tests: CBC w Diff: (XIN: 12/10/2020 21:20) ( MsgRcvd 12/10/2020 21:48) Final results Test Result Flag Units (Reference) CBC W/AUTOMATED DIFF COMPLETE BLOOD COUNT WBC 13.4 H 10/uL (4.2 - 11.0) RBC 4.54 10/uL (4.50 - 6.30) HEMOGLOBIN 14.7 g/dL (14.0 - 16.0) HEMATOCRIT 41.7 % (41.0 - 51.0) MCV 91.9 fL (80.0 - 94.0) MCH 32.4 pg (27.0 - 34.0) MCHC 35.3 g/dL (31.0 - 36.0) RDW 12.7 % (11.5 - 14.8) PLATELETS 366 10/uL (150 - 450) MPV 9.5 fL (7.4 - 10.4) NEUT 64.7 % (37.0 - 80.0) LYMPH 25.6 % (25.0 - 40.0) MON O 6.6 % (3.0 - 8.0) EOS 2.1 % (0.0 - 7.0) BASO 0.4 % (0.0 - 2.0) %IG 0.6 H % (0.0 - 0.0) %NRBC 0.0 % (0.0 - 0.0) 3 Clinical Report - Physicians/Mid Levels [facility] Emergency Department [address] [place] [address] Phone #: ext- [phone] 12/10/2020 21:08 Patient: ARNOLD ESPARZA Sex: M : 1965 Age: 55y #NEUT 8.66 H 10/uL (2.00 - 6.90) #LYMPH 3.43 H 10/uL (0.60 - 3.40) #MONO 0.88 10/uL (0.00 - 0.90) #EOS 0.28 10/uL (0.00 - 0.70) #BASO 0.06 10/uL (0.00 - 0.20) #IG 0.08 10/uL (0.00 - 0.10) #NRBC 0.00 10/uL (0.00 - 0.00) MANUAL DIFF NOT INDICATED RBC MORPH NOT INDICATEDCMP: (XIN: 12/10/2020 21:20) ( MsgRcvd 12/10/2020 22:03) Final results Test Result Flag Units (Reference) COMPREHENSIVE METABOLIC PANEL COMPREHENSIVE METABOLIC PANEL SODIUM 141 mEq/L (134 - 153) POTASSIUM 3.8 mEq/L (3.6 - 5.0) CHLORIDE 107 mEq/L (98 - 107) CO2 22 MEQ/L (22 - 30) GLUCOSE 129 H MG/DL (70 - 99) BUN 20 MG/DL (7 - 21) CREATININE 0.8 MG/DL (0.7 - 1.5) BUN/CREAT 25 (8 - 27) TOTAL PROTEIN 7.0 G/DL (6.3 - 8.2) ALBUMIN 4.2 G/DL (3.9 - 5.0) GLOBULIN 2.8 GM/DL (2.4 - 3.2) A/G RATIO 1.5 (0.8 - 2.0) CALCIUM 9.4 MG/DL (8.4 - 10.2) TOTAL BILI <0.7 MG/DL (0.2 - 1.3) ALKALINE PHOS 81 U/L (38 - 126) SGOT/AST 17 U/L (5 - 40) SGPT/ALT 17 U/L (7 - 56) ANION GAP 12.0 mmol/L (8.0 - 16.0) AGE 55 yrs NON-AA GFR >60 mL/min AFR AMER GFR >60 mL/min Male GFR Interprentation 20-49 yrs >60 mL/min [id number] yrs >56 mL/min Normal 60-69 yrs >49 mL/min Normal 70-79yrs>42 mL/min Normal 80 and above >35 mL/min Normal Female GFRInterpretation 20-39 yrs >60 mL/min Normal 40-49 yrs >58 mL/minNormal 50-59 yrs >51 mL/min Normal 60-69 yrs >45 mL/min [id number] yrs >39 mL/min Normal 80 and above >32 mL/min NormalLipase: (XIN: 12/10/2020 21:20) ( MsgRcvd 12/10/2020 22:03) Final results Test Result Flag Units (Reference) LIPASE 94 H U/L (13 - 60)PT/PTT: (XIN: 12/10/2020 21:20) ( [facility] 12/10/2020 21:46) Final results Test Result Flag Units (Reference) PROTIME 13.2 SECONDS (11.0 - 15.5) INR 0.95 (0. 93 - 1.23) PTT 34.0 SECONDS (24.8 - 36.7) \\BLDo\\INR INTERPRETATION\\BLDx\\ Therapeutic range for Coumadin andrelated oral anticoagulants. -International Normalized Ratio (INR): 2.0 - 3.0 for VenousThrombosis, Pulmonary Embolus, Tissue heart valves, Acute MD Atrial Fibrillation, Valvular heart diseaseand recurrent Systemic Embolism. -International Normalized Ratio (INR): 2.5 - 3.5 forMechanical Prosthetic valve. 4 Clinical Report - Physicians/Mid Levels [facility] Emergency Department [address] [place] [address] Phone #: ext- [phone] 12/10/2020 21:08 Patient: ARNOLD ESPARZA Sex: M : 1965 Age: 55y Troponin-T: (XIN: 12/10/2020 21:20) ( [facility] 12/10/2020 22:03) Final results Test Result Flag Units (Reference) TROPONIN T <0.01 NG/ML (0.00 - 0.10) TROPONIN T0.1 ng/ml Recommended as the clinical threshold value David Nicholson Chest Portable 1 View: (XIN: 12/10/2020 21:25) ( [facility] 12/10/2020 21:57) In Progress CHEST PORTABLE Reason(s): Chest Pain TRANSPORTATION: P IV? O2? Oxygen?(No) Room: ED T4 Free: (XIN: 12/10/2020 21:20) ( MsgRcvd 12/10/2020 22:07) Final results Test Result Flag Units (Reference) T4 FREE 1.28 NG/DL (0.93 - 1.70).PROGRESS AND PROCEDURESCourse of Care: 21:43 12/10/20. patient was given cardizem 10 mg which slowed his heart rate to 116.still in atrial fibrillation. will start him on a drip. patient is very anxious. will give him ativan 2 mg IVP, 21:45 12/10/20. Patient states that this has happened to him in the past. was put to sleep and made to relax and converted to NSR. he does not know if he was shocked or cardioverted. patient states that he was seen by DR Ang and had echo and was told everything was fine. he is not on anticoagulants. he states that this is usually triggered by cold milk or juice but not cold water. 22:24 12/10/20. troponin is negative. blood work unremarkable except for slightly elevated wbcat 13 and glucose elevated at 130. patient is very anxious, will give ativan 00:36 12/11/20. patient in a cardizem drip. still in atrial fibrillation. with RVR. BP is now 101/57. he has phill sleeping. discussed case with Octavia Tyler NP of DR Romero who agreed to admit the patient after we have observed him for 3 hours on a cardizem drip and has not converted yet 00:53 12/11/20. patient refused repeat EKG and troponin. Patient does not want to be admitted and wants us to cardiovert him. I told him that his is stable and there is no indication to cardiovert him i discussed this with cardiology Octavia who did not agree with cardioverting the patient as well. patient wants to leave and i discussed risk of signing out AMA including stroke hypotension, syncope. he did not want to listen and states that we are just into getting more money. patient given metoprolol 25 mg Po after discontinuing the cardizem drip . his heart rate was 109 after cardizem drip discontinued. he was advised to see his splitter machine as soon as possible and advised to increase his metoprolol to 25 mg PO. Patient counseled in person regarding the patient's stable condition, test results, diagnosis and need for follow-up. Patient agrees with plan of care. 00:41. 5 Clinical Report - Physicians/Mid Levels [facility] Emergency Department [address] [place] [address] Phone #: ext- [phone] 12/10/2020 21:08 Patient: ARNOLD ESPARZA Sex: M : 1965 Age: 55y Disposition: Condition: good and stable.CLINICAL IMPRESSION Paroxysmal atrial fibrillation with uncontrolled rate.INSTRUCTIONS (you were advised admission but you refused and signed out AMA. increase your metoprolol to 25 mg daily). Your Current Medications: Your current home medications have been reviewed. STOP TAKING THE FOLLOWING MEDICATIONS: Metoprolol Tartrate Oral : 12.5 daily. CONTINUE TAKING THE FOLLOWING MEDICATIONS: Aspirin Oral : Tablet Chewable 81 mg, 1 tablet daily. Prescription Medications: metoprolol tartrate 25 mg tablet Take 1 tablet once a day for 30 days -- Dispense 30 tablet. Refills: 0. Substitution permitted. Pharmacy - [id number] - [id number] ; [place], [place] [id number]. . Follow-up: Follow up with your healthcare provider tomorrow. Reason for referral: evaluation and treatment. Summary of care provided to patient via paper. AMA warnings: Time of assessment: 00:56 12/11/2020. Oriented to person, place, and time. Gives appropriate answers and rational explanation of refusal of care. Speaks coherently. No signs of psychosis, auditory hallucinations, delusional thinking, suicidal ideations or slurred speech. No tangential thinking, visual hallucinations or homicidal ideations. Abstract thinking intact. Clinical Impression: the patient has the capacity to make decisions regarding the medical care offered. Aware of suspected diagnosis suggested by screening exam. The suspected diagnosis, based upon the initiated medical screening exam, is atrial fibrillation with RVR and has been discussed with the patient. Acknowledges understanding of the reasons for recommendations regarding medical treatment, medical tests and admission to facility. The recommended medical care being refused is admission and has been discussed with the patient. The risks of refusing recommended care that were disclosed and acknowledged are permanent mental impairment, loss of sexual function and loss of current lifest yle; the risks of refusing recommended care that were disclosed are . Discharge instructions were provided. Follow-up with: Tye Izquierdo MD, Cardiology, , [address] [place] [address], [facility] 6 Clinical Report - Physicians/Mid Levels [facility] Emergency Department [address] [place] [address] Phone #: ext- [phone] 12/10/2020 21:08 Patient: ARNOLD ESPARZA Sex: M : 1965 Age: 55y Follow up tomorrow if not better. Call for an appointment. Reason for referral: evaluation.(Electronically signed by Emily Nugent 12/11/2020 07:01) Name Value Range Interpretation Code Description Data Erika rce(s) Supporting Document(s) ID Date Data Source [id number] 12/11/2020 12:29:[address] [facility] Name Value Range Interpretation Code Description Data Erika rce(s) Supporting Document(s) Thyrotropin [Units/volume] in Serum or Plasma by Detec tion limit <= 0.05 mIU/L 2.81 uIU/mL 0.47 - 5.01 [facility] ID Date Data Source [id number] 12/10/2020 10:07:[address] [facility] Name Value Range Interpretation Code Description Data Erika rce(s) Supporting Document(s) Thyroxine (T4) free index in Serum or Plasma by calculation 1.28 NG/DL 0.93 - 1.70 [facility] ID Date Data Source [id number] 12/10/2020 10:03:[address] [facility] Name Value Range Interpretation Code Description Data Erika rce(s) Supporting Document(s) Lipase [Enzymatic activity/volume] in Serum or Plasma 94 U/L 13 - [address] [facility] ID Date Data Source [id number] 12/10/2020 10:03:[address] [facility] Name Value Range Interpretation Code Description Data Erika rce(s) Supporting Document(s) COMPREHENSIVE METABOLIC PANEL [facility] COMPREHENSIVE METABOLIC PANEL Sodium [Moles/volume] in Serum or Plasma 141 mEq/L 134 - 153 [facility] Potassium [Moles/volume] in Serum or Plasma 3.8 mEq/L 3.6 - 5.0 [facility] Chloride [Moles/volume] in Serum or Plasma 107 mEq/L 98 - 107 [facility] Carbon dioxide, total [Moles/volume] in Serum or Plasma 22 MEQ/L 22 - 30 [facility] Glucose [Mass/volume] in Serum or Plasma 129 MG/DL 70 - [address] [facility] BUN 20 [facility]DL 7 - [facility] Creat[facility] [Mass/volume] in Serum or Plasma 0.8 MG/DL 0.7 - 1.5 [facility] BUN/CREAT 25 8 - 27 [facility] al Protein [Mass/volume] in Serum or Plasma 7.0 G/DL 6.3 - 8.2 [facility] Albumin [Mass/volume] in Serum or Plasma 4.2 G/DL 3.9 - 5.0 [facility] Globulin [Mass/volume] in Serum by calculation 2.8 GM/DL 2.4 - 3.2 [facility] A/G RATIO 1.5 0.8 - 2.0 [facility] Calcium [Mass/volume] in Serum or Plasma 9.4 MG/DL 8.4 - 10.2 [facility] Bilirubin.total [Mass/volume] in Serum or Plasma <0.7 MG/DL 0.2 - 1.3 [facility] Alkaline phosphatase [Enzymatic activity/volume] in Serum or Plasma 81 U/L 38 - 126 [facility] Aspartate aminotransferase [Enzymatic activity/volume] in Serum or Plasma 17 U/L 5 - 40 [facility] Alanine aminotransferase [Enzymatic activity/volume] in Seru m or Plasma 17 U/L 7 - 56 [facility] Anion gap 3 in Serum or Plasma 12.0 mmol/L 8.0 - 16.0 [facility] AGE 55 yrs [facility] NON-AA GFR >60 mL/min [facility] H[facility] ital AFR AMER GFR >60 mL/min [facility] Ho spital Male GFR In terprentation 20-49 yrs >60 mL/min Normal 50-59 yrs >56 mL/min Normal 60-69 yrs >49 mL/min Normal 70-79yrs >42 mL/min Normal 80 and above >35 mL/min Normal Female GFR Interpretation 20-39 yrs >60 mL/min Normal 40-49 yrs >58 mL/min Normal 50-59 yrs >51 mL/min Normal 60-69 yrs >45 mL/min Normal 70-79 yrs >39 mL/min Normal 80 and above >32 mL/min Normal ID Date Data Source [id number] 12/10/2020 10:03:[address] [facility] Name Value Range Interpretation Code Description Data Erika rce(s) Supporting Document(s) TROPONIN T <0.01 NG/ML 0.00 - 0.10 [facility] ospital TROPONIN T0.1 ng/ml Recommended as the c linical threshold value forTroponin T. ID Date Data Source [id number] [facility] Value Range Interpretation Code Description Data Erika rce(s) Supporting Document(s) CBC W/AUTOMATED DIFF [facility] COMPLETE BLOOD COUNT Leukocytes [#/volume] in Blood by Automated count 13.4 10^3/uL 4.2 - 11.[address] [facility] Erythrocytes [#/volume] in Blood by Automated count 4.54 10^6/uL 4. 50 - 6.30 [facility] Hemoglobin [Mass/volume] in Blood 14.7 g/dL 14.0 - 16.0 [facility] Hematocrit [Volume Fraction] of Blood by Automated count 41.7 % 4 1.0 - 51.0 [facility] Erythrocyte mean corpuscular volume [Entitic volume] by Auto mated count 91.9 fL 80.0 - 94.0 [facility] Erythrocyte mean corpuscular hemoglobin [Entitic mass] by Automated count 32.4 pg 27.0 - 34.0 [facility] Erythrocyte mean corpuscular hemoglobin concentration [Mass/volume] by Automated count 35.3 g/dL 31.0 - 36.0 [facility] Erythrocyte distribution width [Ratio] by Automated count 12.7 % 11.5 - 14.8 [facility] Platelets [#/volume] in Blood by Automated count 366 10^3/uL 150 - [address] [facility] Platelet mean volume [Entitic volume] in Blood by Automated count 9.5 fL 7.4 - 10.4 [facility] Neutrophils/100 leukocytes in Blood by Automated count 64.7 % 37. 0 - 80.0 [facility] Lymphocytes/100 leukocytes in Blood by Manual count 25.6 % 25.0 - 40.0 [facility] Monocytes/100 leukocytes in Blood by Automated count 6.6 % 3.0 - 8.0 [facility] Eosinophils/100 leukocytes in Blood by Automated count 2.1 % 0.0 - 7.0 [facility] Basophils/100 leukocytes in Blood by Automated count 0.4 % 0.0 - 2.0 [facility] %IG 0.6 % 0.0 - 0.0 H [facility] al %NRBC 0.0 % 0.0 - 0.0 [facility] al Neutrophils [#/volume] in Blood by Automated count 8.66 10^3/uL 2.00 - 6.[address] [facility] Lymphocytes [#/volume] in Blood by Automated count 3.43 10^3/uL 0.60 - 3.[address] [facility] Monocytes [#/volume] in Blood by Automated count 0.88 10^3/uL 0.00 - 0.90 [facility] Eosinophils [#/volume] in Blood by Automated count 0.28 10^3/uL 0.00 - 0.70 [facility] Basophils [#/volume] in Blood by Automated count 0.06 10^3/uL 0.00 - 0.20 [facility] #IG 0.08 10^3/uL 0.00 - 0.10 [facility] H ospital #NRBC 0.00 10^3/uL 0.00 - 0.00 [facility] ospital MANUAL DIFF NOT INDICATED [facility] RBC MORPH NOT INDICATED [facility] spital ID Date Data Source [id number] 12/10/2020 09:46:[address] [facility] Name Value Range Interpretation Code Description Data Erika rce(s) Supporting Document(s) Prothrombin time (PT) 13.2 SECONDS 11.0 - 15.5 [facility] INR in Platelet poor plasma by Coagulation assay 0.95 0.93 - 1. 23 [facility] aPTT in Blood by Coagulation assay 34.0 SECONDS 24.8 - 36.7 [facility] \\BLDo\\INR INTERPRETATION\\BLDx\\ Therapeutic range for Coumadin and related oral anticoagulants. - International Normalized Ratio (INR): 2.0 - 3.0 for Venous Thrombosis, Pulmonary Embolus, Tissue heart valves, Acute MD Atrial Fibrillation, Valvular heart disease and recurrent Systemic Embolism. - International Normalized Ratio (INR): 2.5 - 3.5 for Mechanical Prosthetic valve. Procedure Social History Code Duration Value Status Description Data Source(s ) Smoking 05/04/2021 12:00:00 AM EDT Current Smoker completed Curre nt Smoker eCW1 ([facility]) Vital Signs ID Date Data Source UNK Name Value Range Interpretation Code Description Data Source(s) Body temperature 98.4 [degF] 98.4 [degF] MEDENT ([facility]) Body weight 290.00 [lb_av] 290.00 [lb_av] MEDEN T ([facility], [facility]) Systolic blood pressure 122 mm[Hg] 122 mm[Hg] M EDENT ([facility], [facility]) Diastolic blood pressure 80 mm[Hg] 80 mm[Hg] [facility]) Heart rate 94 /min 94 /min [facility] ([facility], [facility]) Respiratory rate 17 /min 17 /min [facility] ( [facility]) Oxygen saturation in Arterial blood by Pulse oximetry 97 % 97 % [facility] ([place], [facility]) Body height 76 [in_i] 76 [in_i] [facility] ([facility] 6'4" Body mass index (BMI) [Ratio] 35.3 kg/m2 35.3 k g/m2 [facility] ([facility], [facility]) Body weight 296 [lb_av] 296 [lb_av] eCW1 ([facility]) Body height 76 [in_i] 76 [in_i] eCW1 ([facility]) Body mass index (BMI) [Ratio] 36.03 kg/m2 36.03 kg/m2 eCW1 ([facility]) Heart rate 93 /min 93 /min eCW1 (Counts include 234 beds at the [facility]) Respiratory rate 18 /min 18 /min eCW1 ([facility]) Body temperature 97.4 [degF] 97.4 [degF] eCW1 ( [facility]) Systolic blood pressure 130 mm[Hg] 130 mm[Hg] e CW1 ([facility]) Diastolic blood pressure 80 mm[Hg] 80 mm[Hg] eCW1 ([facility])
--- OUTSIDE RECORDS SUMMARY | 2021-06-16 05:55 | CCD ---
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 Name Role Phone Leilanidanielle Henok Unavailable PROBLEMS Type Condition ICD9-CM Code EAW43-WN Code Onset Dates Condition S tatus W/U Status Risk SNOMED Code Notes Problem Tobacco abuse Z72.0 Active confirmed 135349 05 Problem Obstructive sleep apnea (adult) (pediatric) G47.33 Active confirmed 66067250 Problem Hyperlipemia E78.5 Active confirmed 1795661 4 Problem Other hyperlipidemia E78.4 Active confirmed 18007630 Problem Disorder of carbohydrate metabolism, 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 Active confirmed 68223601 Problem DDD (degenerative disc disease), lumbosacral M51.3 7 Active confirmed 64316773 Problem Arthritis of left knee M17.12 Active confirmed 8009674968019902 Problem Nicotine dependence, unspecified, uncomplicated F1 7.200 Active confirmed 399669783 Problem Arthritis of right knee M17.11 Active confirmed 8671111998564550 Problem Major depressive disorder, single episode, unspecified F32.9 Active confirmed 41098776 Problem Gastro-esophageal reflux disease with esophagitis K21.0 Active confirmed 545634895 Problem Paroxysmal a-fib I48.0 Active confirmed 282 156276 last episode 2009; metoprolol was dc 09/2019 Problem Hypertensive heart disease without heart failure I 11.9 Active confirmed 60915475 Problem Chronic obstructive pulmonary disease, unspecified COPD ty pe J44.9 Active confirmed 01877363 FEV1/FVC 65% () ALLERGIES No Known Allergies ENCOUNTERS from 1967 to 2021-05-06 Encounter Location Date Provider Diagnosis [address] [place] [id number] Apr, Henok Bustillos Arthritis of left knee M17.12 ; Chronic obstructive pulmonary disease, unspecified COPD type J44.9 ; Tobacco abuse Z72.0 ; Obstructive sleep apnea (adult) (pediatric) G47.33 ; Hypertensive heart disease without heart failure I11.9 ; Hyperlipemia E78.5 ; Disorder of carbohydrate metabolism, 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 ed 10/06/2016 REASON FOR REFERRAL from 1967 to 2021-05-06 Reason BILAT knee arthritis Diagnosis 1 Arthritis of left knee (M17. 12) Referral Organization [facility] Hola Referring Provider First Name Henok Referring Provider Last Name Tressa Referring Provider Specialty Family Medicine Referred Provider Lyle Tse Referred Provider Specialty Orthopedic Surgery Referral Priority Routine General Notes Katty Ribeiro 05/05/2021 4: 25:26 PM > faxed VITAL SIGNS Weight 296 lbs Apr, Height 76 in Apr, BMI 36.03 kg/m2 Apr, Heart Rate 93 /min Apr, Respiratory Rate 18 /min Apr, Temperature 97.4 degrees Fahrenheit Apr, Oximetry 98 Apr, Blood pressure systolic 130 mm Hg Apr, Blood pressure diastolic 80 mm Hg Apr, MEDICATIONS Medication SIG (Take, Route, Frequency, Duration) Notes Start Da te End Date Status Ibuprofen 800 MG TAKE ONE TABLET BY MOUTH THREE TIMES A DAY for 90 Active ALPRAZolam 0.25 MG 1 tablet Orally 2 times a day as needed MDD: 2 for 30 days Not-Taking Metoprolol Succinate ER 25 MG TAKE ONE-HALF TABLET BY MOUTH EVER Y DAY for 30 Active Aspir-81 81 MG 1 tablet Orally Once a day Active Nicotine 14 MG/24HR 1 patch to skin Transdermal Once a day for 3 0 day(s) Jul, Not-Taking PROCEDURES No Information RESULTS Component Value Reference Range CBC - Complete Blood Count Reviewed date:05/05/2021 17:22:33 Interpretation: Performing Lab:[facility] LABORATORY [address] [facility] [address] , ,[place] [address] WHITE BLOOD COUNT 11.5 4.0-10.0 RED BLOOD COUNT 4.36 4.30-6.10 HEMOGLOBIN 13.6 13.5-17.5 HEMATOCRIT 40.4 42.0-52.0 MEAN CORPUSCULAR VOLUME 92.7 80.0-96.0 MEAN CORPUSCULAR HEMOGLOBIN 31.2 27.0-33.0 MEAN CORPUSCULAR HGB CONC 33.7 32.0-36.5 RED CELL DISTRIBUTION WIDTH 12.5 11.5-14.5 PLATELET COUNT, AUTOMATED 333 150-450 Comprehensive Metabolic Profile (CMP) Reviewed date:05/05/2021 17:22:33 Interpretation: Performing Lab:Critical access hospital LABORATORY [address] [facility] [address] , ,[place] [address] GLUCOSE, FASTING 77 70-100 BLOOD UREA NITROGEN 16 7-18 CREATININE FOR GFR 0.91 0.70-1.30 GLOMERULAR FILTRATION RATE > 60.0 >56 SODIUM LEVEL 139 136-145 POTASSIUM SERUM 4.2 3.5-5.1 CHLORIDE LEVEL 107 98-107 CARBON DIOXIDE LEVEL 28 21-32 CALCIUM LEVEL 9.2 8.5-10.1 AST/SGOT 16 7-37 ALT/SGPT 27 12-78 ALKALINE PHOSPHATASE 77 45-117 BILIRUBIN,TOTAL 0.6 0.2-1.0 TOTAL PROTEIN 7.2 6.4-8.2 ALBUMIN 3.6 3.2-5.2 ALBUMIN/GLOBULIN RATIO 1.0 FREE T4 & TSH PANEL Reviewed date:05/05/2021 17:22:33 Interpretation: Performing Lab:Critical access hospital LABORATORY [address] [facility] [address] , ,[facility] THYROID STIMULATING HORMONE 1.710 0.358-3.740 FREE T4 1.06 0.76-1.46 HEMOGLOBIN A1c Reviewed date:05/05/2021 17:22:33 Interpretation: Performing Lab:Critical access hospital LABORATORY [address] [facility] [address] , ,[place] [address] HEMOGLOBIN A1c 5.4 ESTIMATED AVERAGE GLUCOSE 108 60-110 LIPID PANEL (CARDIAC RISK) Reviewed date:05/05/2021 17:22:33 Interpretation: Performing Lab:Critical access hospital LABORATORY [address] [facility] [address] , ,[facility] TRIGLYCERIDES LEVEL 121 <150 CHOLESTEROL LEVEL 201 <200 HDL CHOLESTEROL 40 >40 LDL CHOLESTEROL 137 <100 NON-HDL-C 161 CHOLESTEROL RISK RATIO 5.025 <5 PSA SCREENING Reviewed date:05/05/2021 17:22:33 Interpretation: Performing Lab:Critical access hospital LABORATORY [address] [facility] [address] , ,[facility] PSA SCREENING 0.72 < 4.00 ADM KNEE COMPLETE Reviewed date:05/05/2021 17:22:33 Interpretation: Performing Lab:[facility],rep ct ivnm], ,[facility] REASON FOR VISIT annual MEDICAL (GENERAL) HISTORY Type Description Date Medical [...] No Information FUNCTIONAL STATUS No Information ASSESSMENTS Encounter Date Diagnosis Assessment Notes Treatment Notes Treatm ent Clinical Notes Apr, Arthritis of left knee (ICD-10 - M17.12) Apr, Chronic obstructive pulmonar y disease, unspecified COPD type (ICD- 10 - J44.9) FEV1/FVC 65% (10/16) Apr, Tobacco abuse (ICD-10 - Z72.0) I personally spent greater than 3 minutes counseling patient concerning the importance of smoking cessation. We discussed how quitting would be personally relevant. I asked the patient to identify potential negative consequences of tobacco use - I pointed out the multiple risks asoociated with ongoing tobacco use. We attempted to identify potential barriers to quitting and discussed strategies to address this. We arranged follow up to continue to support patient in their effort to quit., smoking cessation counseling given. Risks of smoking, including vascular disease (including stroke, heart attack), COPD ( including emphysema and chronic bronchitis), as well as reduced quality of life reviewed with pt Apr, Obstructive sleep apnea (adult) (pediatric) (ICD -10 - G47.33) Apr, Hypertensive heart disease without heart failure (ICD-10 - I11.9) Per JNC 8 guidelines, goal BP < 140/90 (150/90 if age >60), is meeting goal on current regimen. Advised heart-healthy diet, sodium restriction Apr, Hyperlipemia (ICD-10 - E78.5) Apr, Disorder of carbohydrate metabolism, uns pecified (ICD-10 - E74.9) Apr, Paroxysmal a-fib (ICD-10 - I48.0) last e pisode 2009; metoprolol was dc 09/2019Apr, Screening for prostate cancer (ICD-10 - Z12.5) Apr, Arthritis of right knee (ICD-10 - M17.11) PLAN OF TREATMENT Medication Medication Name Sig Start Date Stop Date Aspir-81 81 MG 1 tablet Orally Once a day Treatment Notes Assessment Notes Clinical Notes Tobacco abuse I personally spent g reater than 3 minutes counseling patient concerning the importance of smoking cessation. We discussed how quitting would be personally relevant. I asked the patient to identify potential negative consequences of tobacco use - I pointed out the multiple risks asoociated with ongoing tobacco use. We attempted to identify potential barriers to quitting and discussed strategies to address this. We arranged follow up to continue to support patient in their effort to quit., smoking cessation counseling given. Risks of smoking, including vascular disease (including stroke, heart attack), COPD ( including emphysema and chronic bronchitis), as well as reduced quality of life reviewed with pt Hypertensive heart disease without heart failure Per JNC 8 guidelines, goal BP < 140/90 (150/90 if age >60), is meeting goal on current regimen. Advised heart- healthy diet, sodium restriction Referrals Referral Date Details BILAT knee arthritis, [facility] Next Appt Details 6 Months Reason: Provider Name:Henok Bustillos, 2021-10 08:00:00 AM, [address], , [place], [id number], Insurance Providers Payer Name Payer Address Payer Phone Insured Name Patient Relati onship to Insured Coverage Start Date Coverage End Date [facility] [employer] DEPT [address] [facility] [phone] ARNOLD KAPLAN self
[2021-06-16 06:26] LABS: BASO # 0.1 10^3/uL (0.0-0.2); BASO % 0.5 % (0.0-1.0); EOS # 0.2 10^3/uL (0.0-0.5); EOS % 1.6 % (0.0-3.0); HEMATOCRIT 42.6 % (42.0-52.0); HEMOGLOBIN 14.2 g/dl (13.5-17.5); LYMPH # 1.8 10^3/uL (1.5-5.0); LYMPH % 16.7 % (24.0-44.0); MEAN CORPUSCULAR HEMOGLOBIN 31.2 pg (27.0-33.0); MEAN CORPUSCULAR HGB CONC 33.3 g/dl (32.0-36.5); MEAN CORPUSCULAR VOLUME 93.6 fl (80.0-96.0); MONO # 0.9 10^3/uL (0.0-0.8); MONO % 8.3 % (2.0-8.0); NEUTROPHILS # 7.7 10^3/uL (1.5-8.5); NEUTROPHILS % 72.4 % (36.0-66.0); PLATELET COUNT, AUTOMATED 327 10^3/uL (150-450); RED BLOOD COUNT 4.55 10^6/uL (4.30-6.10); WHITE BLOOD COUNT 10.6 10^3/uL (4.0-10.0)
[2021-06-16 06:34] LABS: INR 0.94
--- NOTE | 2021-06-16 06:35 | REPVR ---
PROCEDURE INFORMATION: Exam: XR Chest Exam date and time: 06/16/21 (6:16am) Age: 55 years old Clinical indication: Chest pain TECHNIQUE: Imaging protocol: Portable CXR Views: 1 view COMPARISON: Portable CXR of 05/11/18 FINDINGS: Comparison is made with portable CXR done on 05/11/18. Stable heart size. No significant vascular congestion. Old, healed posterior right-sided rib fractures. Hazy, poorly defined opacity, lateral right lung field (of unclear significance). No consolidation. Slight blunting at the right costophrenic angle again seen. No pneumothorax. IMPRESSION: Poorly defined, hazy opacity, lateral right lung field -- of unclear significance. Perhaps a chronic change. Cannot exclude a peripheral right-sided pneumonitis. The lung parkinson are otherwise clear. A few old right-sided rib fractures. Suggest follow-up, as symptoms warrant. Electronically signed by: Myra Thurman On 06/16/2021 06:34:55 AM
[2021-06-16 06:53] LABS: ALBUMIN 3.6 GM/DL (3.2-5.2); ALT/SGPT 24 U/L (12-78); BILIRUBIN,DIRECT < 0.1 MG/DL (0.0-0.2); BILIRUBIN,TOTAL 0.3 MG/DL (0.2-1.0); BLOOD UREA NITROGEN 19 MG/DL (7-18); CALCIUM LEVEL 9.2 MG/DL (8.5-10.1); CARBON DIOXIDE LEVEL 26 MEQ/L (21-32); CHLORIDE LEVEL 107 MEQ/L (98-107); CREATININE FOR GFR 0.96 MG/DL (0.70-1.30); GLOMERULAR FILTRATION RATE > 60.0 (>56); GLUCOSE, FASTING 117 MG/DL (70-100); LIPASE 106 U/L (73-393); NT-PRO BNP 19 PG/ML (<125); POTASSIUM SERUM 4.7 MEQ/L (3.5-5.1); SODIUM LEVEL 139 MEQ/L (136-145); TOTAL PROTEIN 7.4 GM/DL (6.4-8.2)
--- OUTSIDE RECORDS SUMMARY | 2021-06-16 07:31 | CCD ---
Author Author [facility] Organization [facility] Address Unknown Phone Unavailable Care Team Providers Care Lending Manager Name Role Phone WetterHenok santos MD Unavailable Unavailable WetterhahnHenok MD Unavailable Unavailable WetterhahnHenok MD Unavailable Unavailable WetterhahnHenok MD Unavailable Unavailable WetterhahnHenok MD Unavailable Unavailable WetterhahnHenok MD Unavailable Unavailable WetterhahnHenok MD Unavailable Unavailable WetterhahnHenok MD Unavailable Unavailable WetterhahnHenok MD Unavailable Unavailable WetterhahnHenok MD Unavailable Unavailable WetterhahnHenok MD Unavailable Unavailable WetterhahnHenok MD Unavailable Unavailable Wetterhahn, Henok PERRY Unavailable Unavailable WetterhahnHenok MD Unavailable Unavailable Wetterhahn, [...] MD Unavailable Unavailable WetterhahnHneok MD Unavailable Unavailable WetterhahnHenok MD Unavailable Unavailable [...] Unavailable MINERVA, TYE PA Unavailable Unavailable MINERVA, YTE PA Unavailable Unavailable MINERVA, TYE PA Unavailable [...] Rocky Unavailable Unavailable NOT, SPECIFIED Unavailable Unavailable CHANJOSEPHECCO, C EMILY MD Unavailable Unavailable CHANLIECCO, C [...] is protected by Article 27-F of the [facility] Public Health law. If you continue you may have access to information: Regarding HIV / AIDS; Provided by facilities licensed or operated by the [facility] Office of Mental Health; or Provided by the [facility] Office for People With Developmental Disabilities. If such information is present, then the following [facility] mandated warning applies: This information has been [...] law may result in a fine or snf sentence or both. A general authorization for the release of medical or other information is NOT sufficient authorization for further disc losure. Family History Family Member Name Family Member Gender Family Member Status Date o f Status Description Data Source(s) Unknown Unknown Problem MEDENT ([facility]) Encounters Encounter Providers Location Date Indications Data Source(s ) Outpatient Attender: TYE auguste 05/12/2021 02:35:00 PM EDT [facility] ([facility]) Outpatient [address] [facility] [address] 05/04/2021 12:00:00 AM EDT eCW1 ([facility]) Unknown [address] [facility] [address] 03/16/2021 12:00:00 AM EDT eCW1 ([facility]) Unknown [address] [facility] [address] 03/14/2021 12:00:00 AM EDT eCW1 ([facility]) Unknown [address] [facility] [address] 03/14/2021 12:00:00 AM EDT eCW1 ([facility]) Emergency Attender: Rocky Abraham ER-ER 02/12/20 08:15:00 PM EDT - 02/11/2021 09:01:00 PM EDT [facility] Patient discharged. Unknown [address] [facility] [address] 12/20/2020 12:00:00 AM EDT eCW1 ([facility]) Emergency Attender: EMILY Palmer MDConsultant: Henok Bustillos MDConsultant: SPECIFIED NOT 12/10/2020 09:13:00 PM EDT - 12/11/2020 01:21:00 AM EDT [facility] Patient discharged. Unknown [address] [facility] [address] 05/05/2020 12:00:00 AM EDT eCW1 ([facility]) Immunizations Vaccine Date Status Description Data Source(s) COVID-19 VACCINE Pfizer 03/10/2021 12:00:00 AM EDT completed [place]IS Vaccine Series Complete: NOThis Data was Submitted to [facility] Via PrivacyCentral. Medications Medication Brand Name Start Date Product [...] MG 05/12 12:00:00 AM EDT completed MEDENT ([facility]) Medication administered onsite Amoxicillin 875 MG / Clavulanate 125 MG Oral Tablet Am oxicillin/Clavulanate Potassium 05/12/2021 12:00:00 AM EDT ORAL active MEDENT ([facility], [facility]) 25 mg 05/11/2021 12:00:00 AM EDT tablet [...] to [place] Policy [place] Plan Information POMCO [id number] WI2 [id number] [employer] [id number] [place]2 [id number] [place] MED[place]ID UNAVAILABLE S [facility] [id number] 18 [id number] [facility] O [id number] S [id number] ANSI-Medicaid [id number] ANSI-Medicaid [id number] ANSI-Not a Secondary Insurance [id number] ANSI-Not a Secondary Insurance [id number] ANSI-Not a Secondary Insurance [id number] [facility] [id number] SP [id number] ANSI-Not a Secondary Insurance [id number] [facility] [id number] SP [id number] [facility] Health Maintenance [facility] ([facility]) [id number] Self [id number] [facility] Maintenance [facility] ([facility]) [id number] Self [id number] [facility] [id number] SP [id number] SELF PAY O [id number] S O UNAVAILABLE UNAVAILA BLE MILK STREE DAIRY [id number] SP [id number] DAIRY [id number] SP [id number] POMCO-O/P [id number] 01 [id number] [employer]OM[employer] PPO P [id number] P [id number] [facility] [id number] SP [id number] 000 [facility] [id number] SP [id number] [facility] [id number] S [id number] Problems, Conditions, and Diagnoses Code Display Name Description Problem Type Effective Dates Data Source(s) Z79.82 skilled nursing (current) use of aspirin SHELTER ([facility] RR[facility]) USE OF ASPIRIN Diagnosis 02/11/2021 08:15:00 PM EDT [facility] F17.200 Nicotine dependence, unspecified, uncomp licated NICOTINE DEPENDENCE, UNSPECIFIED, UNCOMPLICATED Diagnosis 02/11/2021 08:15:00 PM EDT [facility] K02.9 Dental caries, unspecified DENTAL CARIES, UNSPECIFIED Diagnosis 02/11/2021 08:15:00 PM EDT [facility] K08.89 OTHER SPECIFIED DISORDERS OF TEETH AND S UPPORTING STRUCTURES OTHER SPECIFIED DISORDERS OF TEETH AND SUPPORTING STRUCTURES Diagnosis 02/11/2021 08:15:00 PM EDT [facility] A19185 Personal history of nicotine dependence Personal history of nicotine dependence Diagnosis 12/10/2020 09:13:00 PM EDT [facility] Z5320 Procedure and treatment not carried out because of patient's decision for unspecified reasons Procedure and treatment not carried out because of patient's decision for unspecified reasons Diagnosis 12/10/2020 09:13:00 PM EDT [facility] I480 Paroxysmal atrial fibrillation Paroxysmal atrial fibri llation Diagnosis 12/10/2020 09:13:00 PM EDT [facility] R002 Palpitations Palpitations Diagnosis 12/10/2020 09:13:00 P M EDT [facility] M17.11 [id number] Arthritis of right knee Problem 05/04/2021 12:00:00 AM EDT eCW1 ([facility]) M17.12 [id number] Arthritis of left knee Problem 1 12:00:00 AM EDT eCW1 ([facility]) Surgeries/Procedures Procedure Description Date Indications Data Source(s) Therapeutic, Prophylactic Or Diagnostic Injection Subq/Im 05/12/2021 12:00:00 AM EDT MEDENT ([facility], [facility]) OFFICE OUTPATIENT VISIT 15 MINUTES 05/12/2021 12:00:00 AM EDT MEDENT ([facility], [facility]) Results ID Date Data Source [id number] 05/12/2021 12:00:00 AM EDT [facility] Name Value Range Interpretation Code Description Data Erika rce(s) Supporting Document(s) SARS-CoV2 Rapid Antigen Negative [facility] This lab was reported by [facility]. ID Date Data Source ADM KNEE COMPLETE 05/04/2021 12:00:00 AM EDT eCW1 (Pending sale to [facility]) Name Value Range Interpretation Code Description Data Erika rce(s) Supporting Document(s) ADM KNEE COMPLETE eCW1 ([facility]) ID Date Data Source PSA SCREENING 05/04/2021 12:00:00 AM EDT eCW1 (Pending sale to [facility]) Name Value Range Interpretation Code Description Data Erika rce(s) Supporting Document(s) 0.72 < 4.00 PSA SCREENING eCW1 ([facility]) ID Date Data Source LIPID PANEL (CARDIAC RISK) 05/04/2021 12:00:00 AM EDT eCW1 ( [facility]) Name Value Range Interpretation Code Description Data Erika rce(s) Supporting Document(s) Triglyceride [Mass/volume] in Serum or Plasma by calculation 121 <150 TRIGLYCERIDES LEVEL eCW1 ([facility]) Cholesterol [Moles/volume] in Serum or Plasma 201 <200 CHOLESTEROL LEVEL eCW1 ([facility]) 161 NON-HDL-C eCW1 ([facility]) Cholesterol in LDL [Mass/volume] in Serum or Plasma by calculation 137 <100 LDL CHOLESTEROL eCW1 ([facility]) Cholesterol in HDL [Moles/volume] in Serum or Plasma 40 >40 HDL CHOLESTEROL eCW1 ([facility]) 5.025 <5 CHOLESTEROL RISK RATIO eCW1 ([facility]) ID Date Data Source [id number] 05/04/2021 12:00:00 AM EDT eCW1 (Pending sale to [facility]) Name Value Range Interpretation Code Description Data Erika rce(s) Supporting Document(s) Hemoglobin A1c/Hemoglobin.total in Blood 5.4 HEMOGLOBIN A1c eCW1 ([facility]) ID Date Data Source FREE T4 & TSH PANEL 05/04/2021 12:00:00 AM EDT eCW1 (Pending sale to [facility]) Name Value Range Interpretation Code Description Data Erika rce(s) Supporting Document(s) 1.710 0.358-3.740 THYROID STIMULATING HORM ONE eCW1 ([facility]) 1.06 0.76-1.46 FREE T4 eCW1 ([facility]) ID Date Data Source Comprehensive Metabolic Profile (CMP) 05/04/2021 12:00:00 AM EDT eCW1 ([facility]) Name Value Range Interpretation Code Description Data Erika rce(s) Supporting Document(s) 16 7-18 BLOOD UREA NITROGEN eCW1 ([facility]) 0.91 0.70-1.30 CREATININE FOR GFR eCW1 ([facility]) 77 70-100 GLUCOSE, FASTING eCW1 (Pending sale to [facility]) 107 98-107 CHLORIDE LEVEL eCW1 ([facility]) 4.2 3.5-5.1 POTASSIUM SERUM eCW1 ([facility]) 139 136-145 SODIUM LEVEL eCW1 ([facility]) > 60.0 >56 GLOMERULAR FILTRATION RATE eCW 1 ([facility]) 27 12-78 ALT/SGPT eCW1 ([facility]) 16 7-37 AST/SGOT eCW1 ([facility]) 9.2 8.5-10.1 CALCIUM LEVEL eCW1 ([facility]) 28 21-32 CARBON DIOXIDE LEVEL eCW1 ([facility]) 7.2 6.4-8.2 TOTAL PROTEIN eCW1 ([facility]) 0.6 0.2-1.0 BILIRUBIN,TOTAL eCW1 ([facility]) 77 45-117 ALKALINE PHOSPHATASE eCW1 ([facility]) 3.6 3.2-5.2 ALBUMIN eCW1 ([facility]) 1.0 ALBUMIN/GLOBULIN RATIO eCW1 ([facility]) ID Date Data Source CBC - Complete Blood Count 05/04/2021 12:00:00 AM EDT eCW1 ( [facility]) Name Value Range Interpretation Code Description Data Erika rce(s) Supporting Document(s) 11.5 4.0-10.0 WHITE BLOOD COUNT eCW1 ([facility]) 4.36 4.30-6.10 RED BLOOD COUNT eCW1 ([facility]) 40.4 42.0-52.0 HEMATOCRIT eCW1 ([facility]) 92.7 80.0-96.0 MEAN CORPUSCULAR VOLUME e CW1 ([facility]) 13.6 13.5-17.5 HEMOGLOBIN eCW1 ([facility]) 31.2 27.0-33.0 MEAN CORPUSCULAR HEMOGLOB IN eCW1 ([facility]) 12.5 11.5-14.5 RED CELL DISTRIBUTION WID TH eCW1 ([facility]) 33.7 32.0-36.5 MEAN CORPUSCULAR HGB CONC eCW1 ([facility]) 333 150-450 PLATELET COUNT, AUTOMATED eCW1 ([facility]) ID Date Data Source [id number] 02/11/2021 09:01:00 PM EDT [facility] heller Physician DocumentationClaxmyra-Raji vasques CenterName: Arnold DobsonAge: 55 yrsSex: MaleDOB: 1965MRN: [id number] Date: 02/11/2021Time: 20:15Account#: [id number] Fast Xt5Hhpvwrr MD:ED Physician Greta Abraham Summary:02/11/21 20:42Discharge OrderedLocation: Home Self Care as6Uefyyru: an acute exacerbation dq3Bmrznrrq: have improved af0Gvappxvvo: Stable de6Btukorsxb- Dental caries, unspecified fj1Goqgejet: dk2- With: Jaime Winston DDS- When: 1 - 2 days- Reason: Further diagnostic work-up, Recheck today's complaintsFollowup: dk2- With: Emergency Department- When: As needed- Reason: Worsening of conditionDischarge Instructions:- Discharge Summary Sheet dk2- DENTAL CAVITY fj8Fiuwz:- Medication Reconciliation dk2- Medication Reconciliation Form - 2nd Copy hm2Gcnmjnwjjydke:- Clindamycin HCl 300 mg Oral Capsule- take 1 capsule by ORAL route every 6 hours for 10 days; 40 sc3hrczize; Refills: 0, Product Selection PermittedHPI:01/1620:33 This 55 yrs old Male presents to ER via Private Vehicle with wd7wiamzstpdp of Toothache.20:33 Patient presents stating right upper mouth pain associated with qs1tvcwdr fracture. Patient states dental fracture a few [...] for poor PO intake, Negative for chills, js3ddmog. Eyes: Negative for itching, pain, photophobia. ENT: [...] patient appears in no acute distress, alert, un9xylei, non-diaphoretic, non-toxic, well developed, in obvious pain,uncomfortable.20:51 [...] Temp 97.9(TE); Pulse Ox 98% ; Weight yt1381.73 kg (R); Height 6 ft. 3 in. (190.50 cm) (R); Pain 8/10;21:01 BP 124 / 83; ef120:16 Body Mass Index 35.75 (129.73 kg, 190.50 cm) zi6Kxrhyjh Coma Score:20:51 Eye Response: spontaneous(4). Verbal Response: oriented(5). Motor dw9Jdzbticb: obeys commands(6). Total: 15.Procedures:20:53 Dental block: Loca tion: periapical block, Medication: Marcaine 0.5%, fv3Luugsb: 2 mls were injected, Effect: the patient's symptoms areimproved, markedly, the patient tolerated the procedure well.MDM:20:19 Patient medically screened. dk220:54 Data reviewed: nurses notes. ED course: Patient presenting with zc4mspndaz dental fractures stating swelling, concern for impendingdental [...] [clindamycin HCl 300 mg capsule (1 caps)] ll9Bnuuc: PO;21:00 Follow up: Response: Medication administered at discharge. ef120:38 Drug: Bupivacaine 0.25 % 10 ml {Note: given by MD.} Route: zg6Sndsplxnnnuv;21:00 Drug: Clindamycin 300 mg [clindamycin HCl 300 mg capsule (1 caps)] wl6Kttas: PO;21:00 Follow up: Response: Medication administered at discharge. ef121:00 Drug: Clindamycin 300 mg [clindamycin HCl 300 mg capsule (1 caps)] qa9Vguwk: PO;21:00 Follow up: Response: Medication administered at discharge. rl2Zjtvjmsknb:Anabella Miller RN RN xr9QoqpksgRocky Abraham MD MD vr1WnvknfcjzLyric Mckeon RN RN cm4 Name Value Range Interpretation Code Description Data Erika rce(s) Supporting Document(s) ID Date Data Source [id number] 02/11/2021 09:01:00 PM EDT [facility]Cl[facility] terName: Arnold DobsonAge: 55 yrsSex: MaleDOB: 1965MRN: [id number] Date: 02/11/2021Time: 20:15Account#: [id number] Fast Tw4Kdhivth MD:Diagnosis: Dental caries, unspecifiedPresentation:01/1620:16 Presenting complaint: Patient states: his tooth broke and now his kp9eyrs is swollen. Coronavirus Screening: Have you been diagnosed withCOVID-19 in the past 30 days? no [facility] no Flu-like symptoms reported in the last 14 days: no.Have you had close contact with confirmed or suspected COVID-19 case?no Do you live in a setting where a large of amount of people live,such as residential, family care, snf, etc? no. Have you traveledto a location with widespread or ongoing COVID-19 community spread [facility]? no Have you traveled internationally or hadcontact with someone that has traveled and has been ill in the past 3weeks? no Have you received the COVID vaccine? No. CommunicableDisease Screen: Negative for fever>/= 100 degrees Fahrenheit.Communicable disease screen is negative. (-) rash or unusual skinlesion (-) travel/contact with traveler (-) respiratory symptoms.Communication Speaks Belarusian? Yes, is preferred language.20:16 Acuity: Triage 4 cm420:16 Acuity Assignment: Triage 4 cm420:16 Method Of Arrival: Private Vehicle up5Ltvxta Assessment:20:17 General: Appears in no apparent distress, Behavior is cooperative. ve4Zozzig Screening: (1)Signs/symptoms infection No. Pain: Com [place] [...] Denies threats or abuse. Nutritional screening: No ti1anyztlkc noted. Offer of HIV testing: patient was previously offeredscreening. Fall Risk None identified.Assessment:20:20 Reassessment: No changes from previously documented assessment. em6Qfefu Signs:20:16 BP 152 / 78; Pulse 80; Resp 18; Temp 97.9(TE); Pulse Ox 98% ; Weight qi5672.73 kg (R); Height 6 ft. 3 in. (190.50 cm) (R); Pain 8/10;21:01 BP 124 / 83; ef120:16 Body Mass Index 35.75 (129.73 kg, 190.50 cm) ig6Osztgxa Coma Score:20:51 Eye Response: spontaneous(4). Verbal Response: oriented(5). Motor zn9Rfpyyltm: obeys commands(6). Total: 15.ED Course:20:15 Patient arrived [...] Physician. dk221:01 No Physician assisted procedures completed. cw4Jzbruxnoxqtk Medications:20:36 Drug: Clindamycin 300 mg [clindamycin HCl 300 mg capsule (1 caps)] sz9Aafmh: PO;21:00 Follow up: Response: Medication administered at discharge. ef120:38 Drug: Bupivacaine 0.25 % 10 ml {Note: given by MD.} Route: pz1Gnaeaglefzuv;21:00 Drug: Clindamycin 300 mg [clindamycin HCl 300 mg capsule (1 caps)] dj3Ijhod: PO;21:00 Follow up: Response: Medication administered at discharge. ef121:00 Drug: Clindamycin 300 mg [clindamycin HCl 300 mg capsule (1 caps)] kl8Ltkrz: PO ;21:00 Follow up: Response: Medication administered at discharge. jn9Nfsiupo:20:42 Discharge ordered by . dk221:01 Disposition: Discharged [...] or no assistance.21:01 Patient left the ED. zy5Edehrlrudk:Anabella Miller RN RN ea4SibhzfcRocky Abraham MD MD or2WyxifxplcLyric Mckeon RN RN cm4 Name Value Range Interpretation Code Description Data Erika rce(s) Supporting Document(s) ID Date Data Source [id number] 12/14/2020 10:18:00 AM EDT [facility] [address] [place] [address] PHONE: [phone] FAX: [phone] Name .................. : [place] Acct Number.................. : [id number] ROOM. ................. : VT-16 Number ................... : [id number] Stay type ............. : E/R Discharge Date......... ... : Admit Date ......... : 0 12/10/20 Admit Phys .................... : [facility] Date of ....... : 1965 Family Phys ................... : [employer] Phone .................. : [phone] Age ................................ : 55 Film# .................. .:[id number] Sex ................................. : M Unsigned transcriptions are preliminary reports and do not represent a medical or legal document CHEST PORTABLE [id number] COMPLETE:12/10/20 21:57 RLB [id number] Reason(s): Chest Pain PORTABLE CHEST X-RAY: INDICATION: [...] rce(s) Supporting Document(s) ID Date Data Source [id number] 12/12/2020 08:48:00 [place] [address] RESPIRATORY CARE REPORT ==== ---------NAME------- NUMBER SEX AGE ADMIT DISC. XRAY# F/C RAMESHTRACEY ARN[place] [id number] M 55 12/10/20 12/11/20 [id number] XB2 E/R DATE OF : 1965 M/R# [id number] #: [id number] VT-16 LOCATION: EMERGENCY DEPT EKG 54595 COMPLE TE:12/11/20 00:55 [place] [id number] PHYSICIAN: JOVANNA Name Value Range Interpretation Code Description Data Erika rce(s) Supporting Document(s) ID Date Data Source [id number] 12/10/2020 09:13:00 PM EDT [facility] 1 OrderSheet [facility] Emergency Department [address] [place] [address] Phone #: [phone]- [phone] 12/10/2020 21:08 Patient: ARNOLD ESPARZA Sex: M : 1965 Age: 55yWEIGHT:117.9 kg (S) HEIGHT:76 inches (S) BMI:31.7ALLERGIES: No Known Drug AllergyCHIEF COMPLAINT: palpitationsDIAGNOSIS: Atrial fibrillationLAB ORDERSOrder Description Priority Entered Acknowledged InitialedCBC w Diff STAT 21:12/10/2020 21:31 Emily Bojorquez RN ;CMP STAT 21:12/10/2020 21:31 Emily Bojorquez RN ;Lipase STAT 21:12/10/2020 21:31 Emily Bojorquez RN ;PT/PTT STAT :12/10/2020 21:31 Emily Bojorquez RN ;Troponin-T STAT :12/10/2020 21:31 Emily Bojorquez RN ;TSH STAT :12/10/2020 21:31 Emily Bojorquez RN ;T4 Free STAT 21:12/10/2020 21:31 Emily Bojorquez RN ;Troponin-T STAT 00:29 12/11/2020 Cancelled: Patient Refusal 01:20 Emily Cat RN ;DIAGNOSTIC STUDY ORDERSOrder Description Priority Entered Acknowledged InitialedChest Portable 1 STAT :12/10/2020 21:31 Zander Odom RN(Oxygen?(No)) ; Reason for Study: Chest Pain 2 OrderSheet [facility] Emergency Department [address] [place] [address] Phone #: ext- [phone] 12/10/2020 21:08 -------- Patient: ARNOLD ESPARZA Sex: [...] Pressure 21:25 12/10/2020 21:31 Emily Quiñonez RN ;Facs Teacher 21:25 12/10/2020 21:31 Glenn(continuous) Emily Nugent RN 3 OrderSheet [facility] Emergency Department [address] [place] [address] Phone #: ext- [phone] 12/10/2020 21:08 [id number] Sex[facility] M : 1965 Age: 55y ;EKG 21:12/10/2020 21:31 Emily Bojorquez RN ;NPO 21:12/10/2020 21:31 Emily Bojorquez RN ;Obtain Old EKG :12/10/2020 21:31 Emily Bojorquez RN ;Obtain Old Records 21:12/10/2020 21:31 Emily Bojorquez RN ;Oxygen titrate to 21:12/10/2020 21:31 Glenn92Emily Aleman RN ;Pulse oximeter :12/10/2020 21:31 Glenn(Continuous) Emily Nugent RN ;Saline Lock :12/10/2020 21:31 Emily Bojorquez RN ;Vitals :12/10/2020 21:31 Emily Bojorquez RN ;EKG 00:29 12/11/2020 Cancelled: Patient Refusal 01:20 Emily Cat RN ;[Electronically signed by David Britton RN (:12/11/2020)][Electronically signed by Emily Nugent (07:01 12/11/2020)][Electronically locked by David Britton RN (:12/11/2020)] Name Value Range Interpretation Code Description Data Erika rce(s) Supporting Document(s) ID Date Data Source [id number] 12/10/2020 09:13:00 PM EDT [facility] 1 Medication Reconciliation Report [facility] Emergency Department [address] [place] [address] Phone #: ext- [phone] 12/10/2020 21:08 Patient: ARNOLD ESPARZAN: [id number] Sex: M : 1965 Age: 55yWeight: 117.9 [...] Refills: 0.Substitution permitted. 2 Medication Reconciliation Report [facility] Emergency Department [address] [place] [address] Phone #: ext- [phone] 12/10/2020 21:08 Patient: ARNOLD ESPARZA Sex: M : 1965 Age: 55y[facility] - [facility] [id number] ; [place], [place] [id number]. . -- Emily Nugent Name Value Range Interpretation Code Description Data Erika rce(s) Supporting Document(s) ID Date Data Source [id number] 12/10/2020 09:13:00 PM EDT [facility] 1 Medication Administration Record [facility] Emergency Department [address] [place] [address] Phone #: ext- [phone] 12/10/2020 21:08 Patient: ARNOLD ESPARZA Sex: M : 1965 Age: 55yWeight: 117.9 kgHeight/Length: 76 inBMI: 31.7ALLERGIES: No Known Drug Allergy Date/Time Medication Administered Medication OrderedGiven ASPIRIN CHEWABLE 81 MG [PO] Aspirin PO Chewable 81 mg 39591:36 12/10/2020 Dose: 324 mg Tablets PO mg (NOW)Glenn Shah RNGiven CARDIZEM [IVP] (DILTIAZEM HCL) Cardizem IVP 10 mg (NOW)21:53 12/10/2020 Dose: 10 mg IVPGKvng stewart R.N. Site: #1 right forearmStart NS [IV] NS IV : 200 mL/hr21:54 12/10/2020 Dose: IV FluidsKvng Champion R.N. Rate: 200 mL/hr over 5 hour(s)---- Dispensed: 1000 mL bagStop Site: #1 right iyprkhv85:30 12/10/2020Lina Britton R.N.Start CARDIZEM [IV DRIP] Cardizem Drip IV : 10 mg/hr (Add22:13 12/10/2020 Dose: 10 mg Drip IV 125 mg (25 mL) to 100 mL NS Kvng Daniels R.N. Rate: 10 mg/hr over 12 hour(s) get 125 mg/125 mL (1 mg/mL))---- Dispensed: 125 mL bagStop Site: #1 right hszsoyx02:08 12/11/2020Paty Felton NS [IV] NS IV 1000 mL Bolus: : Bolus 865880:40 12/10/2020 Dose: IV Fluids mL (X1)Lina Britton R.N. Rate: 1000 mL/hr---- Dispensed: 1000 mL bagStop Site: #1 right nsygvwa38:30 12/10/2020Ion Felton ATIVAN [IVP] (LORAZEPAM) Ativan IVP 2 mg (NOW x1, HIGH22:25 12/10/2020 Dose: 2 mg IVP ALERT MEDICATION)Kvng Champion R.N. Site: #1 right forearmGiven METOPROLOL [PO] Metoprolol PO 25 mg (NOW x1)01:10 12/11/2020 Dose: 25 mg Tablets POStcady Britton RN Name Value Range Interpretation Code Description Data Erika rce(s) Supporting Document(s) ID Date Data Source [id number] 12/10/2020 09:13:00 PM EDT [facility] 1 General Instructions [facility] Emergency Department [address] [place] [address] Phone #: ext- [phone] 12/10/2020 21:08 Patient: [...] Dispense 30 tablet. Refills: 0.Substitution permitted.Pharmacy - [facility] - [id number] ; [place], [place] [id number]. .Follow-up:Follow up with your healthcare provider tomorrow. [...] provided.Follow-up with: Tye Izquierdo MD, Cardiology, , [address] [place] [address], [id number] Follow up tomorrow if not better. Call for an appointment. Reason for referral: evaluation. 2 General Instructions [facility] Emergency Department [address] [place] [id number] Phone #: ext- [phone] 12/10/2020 21:08 Patient: ARNOLD ESPARZA Sex: M [...] a couple ofdays. Or it may become senior living (chronic), lasting for months at a time or even become permanent.Some symptoms of atrial fibrillation are hard to notice. They include feeling less able to exercise.Some people have no symptoms.Atrial fibrillation is more common in older adults. It may be caused by heart disease or otherconditions in the body that affect the heart. They include: 3 General Instructions [facility] Emergency Department [address] [place] [address] Phone #: ext- [phone] 12/10/2020 21:08 Patient: [...] stop-smoking program for help. 4 General Instructions [facility] Emergency Department [address] [place] [address] Phone #: ext- [phone] 12/10/2020 21:08 Patient: [...] as advised.When to seek medical adviceCall your [facility] provider right away if any of these [...] with speech or vision 5 General Instructions [facility] Emergency Department [address] [place] [address] Phone #: ext- [phone] 12/10/2020 21:08 Patient: ARNOLD ESPARZA Sex: M : 1965 Age: 55y Extreme drowsiness, confusion, dizziness, or fainting [id number] [facility]. [address] [place] [address]. All rights reserved. This information is not intended as asubstitute for professional medical care. Always follow your healthcare professional's instructions. You have been given the following additional information: Atrial Fibrillation(Electronically signed by Emily Nugent 12/11/2020 07:01) Name Value Range Interpretation Code Description Data Erika rce(s) Supporting Document(s) ID Date Data Source [id number] 12/10/2020 09:13:00 PM EDT [facility] 1 Clinical Report - Nurses [facility] Emergency Department [address] [place] [address] Phone #: ext- [phone] 12/10/2020 21:08 Patient: [...] happened to him in the past also).Treatment [facility]:None.SEPSIS SCREEN: SIRS SCREEN NEGATIVE: heart rate greater [...] HIV testing 2 Clinical Report - Nurses [facility] Emergency Department [address] [place] [address] Phone #: ext- [phone] 12/10/2020 21:08 Patient: ARNOLD ESPARZA Sex: M : 1965 Age: 55y but [...] assessment completed. No skin integrity risk identified. --:12/10/20 Glenn Shah RN. Interventions To treatment room. [...] (per Kvng SAMUEL). --21:33 12/10/20Glenn Shah RN monitor car operator, NIBP monitor and pulse oximeter placed on patient; front desk monitor- Lead II; monitor 3 Clinical Report - Nurses [facility] Emergency Department [address] [place] [address] Phone #: ext- [phone] 12/10/2020 21:08 Patient: [...] given over 3 minute(s) via site #1. --21:5412/10/20 Kvng Champion R.N.21:54 12/10/2020 Started bag #1 1000 mL IV Fluids NS; at 200 mL/hr over 5 hour(s) via site #1 --21:5412/10/20 Kvng Champion R.N.22:13 12/10/2020 Started 10 mg of Cardizem Drip IV in bag #1 125 mL; at 10 mg/hr over 12 hour(s) via site#1. --22:13 12/10/20 Kvng Champion R.NGareth22:25 12/10/2020 Ativan (LORazepam) IVP 2 [...] taking this medication. Verbalizes understanding. --22:50 12/10/20 Lina Britton R.N. 4 Clinical Report - Nurses [facility] Emergency Department [address] [place] [address] Phone #: ext- [phone] 12/10/2020 21:08 Patient: ARNOLD ESPARZA Sex: M [...] flushed thoroughly. --01:18 12/11/20 David Britton RN 01:12/11/2020 Metoprolol PO Tablets 25 mg given. Allergies verified and confirmed 5 rights. Information reviewed with patient including reason for taking this medication, signs of allergic reaction and precautions. Verbalizes understanding. --01:10 12/11/20 David Britton RN.DISPOSITION / DISCHARGE Lisandro Coma Scale: 15- eyes open- spontaneous (4); [...] Emergency Department ambulatory and via private vehicle. --:16 12/11/20 David Britton RN 01:13 12/11/20. BP: 101/57 (regular adult cuff) taken on the right arm, via an automated monitor, while lying. MAP: 71. HR: 109 (regular, normal rate and strong). RR: 18 (regular and normal). O2 saturation: 96% on room air. Temp: 97.2 F (oral). Pain level now: 0/10. --:12/11/20 David Britton RN Departure time: 01:18 12/11/2020. --:12/11/20 David Britton RN ( Refused EKG and repeat trop at 0030). --:12/11/20 David Britton RN.Locked/Released at 12/11/2020 01:20 by David Britton RN Name Value Range Interpretation Code Description Data Erika rce(s) Supporting Document(s) ID Date Data Source [id number] 12/10/2020 09:13:00 PM EDT [facility] 1 Clinical Report - Physicians/Mid Levels [facility] Emergency Department [address] [place] [address] Phone #: ext- [phone] 12/10/2020 21:08 Patient: ARNOLD ESPARZA Sex: M : 1965 Age: 55y Time Seen: 21:11 12/10/2020; initial patient contact, initial documentation. Arrived- By private vehicle. Historian- patient. Disposition decision: 00:41 12/11/2020.HISTORY OF PRESENT ILLNESS Chief Complaint: PALPITATIONS. This started today a few hours [facility] and is still present (persistent). (patient was [...] mild chest discomfort with the palpitation). Treatment [employer] [facility]: (none).REVIEW OF SYSTEMSNo fever, chills, cough, orthopnea [...] use. 2 Clinical Report - Physicians/Mid Levels [facility] Emergency Department [address] [place] [address] Phone #: ext- [phone] 12/10/2020 21:08 Patient: ARNOLD ESPARZA Sex: M : 1965 Age: 55yADDITIONAL NOTESThe [...] - 0.0) 3 Clinical Report - Physicians/Mid [facility] Emergency Department [address] [place] [address] Phone #: ext- [phone] 12/10/2020 21:08 Patient: [...] Male GFR Interprentation 20-49 yrs >60 mL/min Ronxqb98-60 yrs >56 mL/min Normal 60-69 yrs >49 mL/min Normal 70-79yrs>42 mL/min Normal 80 and above >35 mL/min Normal Female GFRInterpretation 20-39 yrs >60 mL/min Normal 40-49 yrs >58 mL/minNormal 50-59 yrs >51 mL/min Normal 60-69 yrs >45 mL/min Qfytno55-58 yrs >39 mL/min Normal 80 and above >32 mL/min NormalLipase: (XIN: 12/10/2020 21:20) ( [facility]cvd 12/10/2020 22:03) Final results Test Result Flag Units (Reference) LIPASE 94 H U/L (13 - 60)PT/PTT: (XIN: 12/10/2020 21:20) ( [facility] 21[facility]46[facility] Final results Test Result Flag Units (Reference) PROTIME 13.2 SECONDS (11.0 - 15.5) INR 0.95 (0. 93 - 1.23) PTT 34.0 SECONDS (24.8 - 36.7) \\BLDo\\INR INTERPRETATION\\BLDx\\ Therapeutic range for Coumadin andrelated oral anticoagulants. -International Normalized Ratio (INR): 2.0 - 3.0 for VenousThrombosis, Pulmonary Embolus, Tissue heart valves, Acute [place] Atrial Fibrillation, Valvular heart diseaseand recurrent Systemic Embolism. -International Normalized Ratio (INR): 2.5 - 3.5 forMechanical Prosthetic valve. 4 Clinical Report - Physicians/[facility] Emergency Department [address] [place] [address] Phone #: ext- [phone] 12/10/2020 21:08 Patient: ARNOLD ESPARZA Sex: M : 1965 Age: 55y Troponin-T: (XIN: 12/10/2020 21:20) ( [facility] 12/10/2020 22:03) Final results Test Result Flag Units (Reference) TROPONIN T <0.01 NG/ML (0.00 - 0.10) TROPONIN T0.1 ng/ml Recommended as the clinical threshold value David Nicholson Chest Portable 1 View: (XIN: 12/10/2020 21:25) ( [facility] 12/10/2020 21:57) In Progress CHEST PORTABLE [...] discontinued. he was advised to see his career portals teacher as soon as possible and advised to increase his metoprolol to 25 mg PO. Patient counseled in person regarding the patient's stable condition, test results, diagnosis and need for follow-up. Patient agrees with plan of care. 00:41. 5 Clinical Report - Physicians/Mid Levels [facility] Emergency Department [address] [place] [address] Phone #: ext- [phone] 12/10/2020 21:08 Patient: [...] tablet. Refills: 0. Substitution permitted. Pharmacy - [facility] - [id number] ; [place], [place] [id number]. . Follow-up: Follow up with your healthcare [...] Follow-up with: Tye Izquierdo MD, Cardiology, , [address] [place] [address], Critical access hospital 6 Clinical Report - Physicians/Mid Levels [facility] Emergency Department [address] [place] [address] Phone #: ext- [phone] 12/10/2020 21:08 Patient: ARNOLD ESPARZA Sex: M : 1965 Age: 55y Follow up tomorrow if not better. Call for an appointment. Reason for referral: evaluation.(Electronically signed by Emily Nugent 12/11/2020 07:01) Name Value Range Interpretation Code Description Data Erika rce(s) Supporting Document(s) ID Date Data Source [id number] 12/11/2020 12:29:00 AM EDT [facility] Name Value Range Interpretation Code Description Data Erika rce(s) Supporting Document(s) Thyrotropin [Units/volume] in Serum or Plasma by Detec tion limit <= 0.05 mIU/L 2.81 uIU/mL 0.47 - 5.01 [facility] ID Date Data Source [id number] 12/10/2020 10:07:00 PM EDT [facility] Name Value Range Interpretation Code Description Data Erika rce(s) Supporting Document(s) Thyroxine (T4) free index in Serum or Plasma by calculation 1.28 NG/DL 0.93 - 1.70 [facility] ID Date Data Source [id number] 12/10/2020 10:03:00 PM EDT [facility] Name Value Range Interpretation Code Description Data Erika rce(s) Supporting Document(s) Lipase [Enzymatic activity/volume] in Serum or Plasma 94 U/L 13 - 60 H [facility] ID Date Data Source [id number] 12/10/2020 10:03:00 PM EDT [facility] Name Value Range Interpretation Code Description Data Erika rce(s) Supporting Document(s) COMPREHENSIVE METABOLIC PANEL [facility] COMPREHENSIVE METABOLIC PANEL Sodium [Moles/volume] in Serum or Plasma 141 mEq/L 134 - 153 [facility] Potassium [Moles/volume] in Serum or Plasma 3.8 mEq/L 3.6 - 5.0 [facility] Chloride [Moles/volume] in Serum or Plasma 107 mEq/L 98 - 107 [facility] Carbon dioxide, total [Moles/volume] in Serum or Plasma 22 MEQ/L 22 - 30 [facility] Glucose [Mass/volume] in Serum or Plasma 129 MG/DL 70 - 99 H [facility] BUN 20 MG/DL 7 - 21 [facility] al Creatinine [Mass/volume] in Serum or Plasma 0.8 MG/DL 0.7 - 1.5 [facility] BUN/CREAT 25 8 - 27 [facility] al Protein [Mass/volume] in Serum or Plasma 7.0 G/DL 6.3 - 8.2 [facility] Albumin [Mass/volume] in Serum or Plasma 4.2 G/DL 3.9 - 5.0 [facility] Globulin [Mass/volume] in Serum by calculation 2.8 GM/DL 2.4 - 3.2 [facility] A/G RATIO 1.5 0.8 - 2.0 [facility] Calcium [Mass/volume] in Serum or Plasma 9.4 MG/DL 8.4 - 10.2 [facility] Bilirubin.total [Mass/volume] in Serum or Plasma <0.7 MG/DL 0.2 - 1.3 [facility] Alkaline phosphatase [Enzymatic activity/volume] in Serum or Plasma 81 U/L 38 - 126 [facility] Aspartate aminotransferase [Enzymatic activity/volume] in Serum or Plasma 17 U/L 5 - 40 [facility] Alanine aminotransferase [Enzymatic activity/volume] in Seru m or Plasma 17 U/L 7 - 56 [facility] Anion gap 3 in Serum or Plasma 12.0 mmol/L 8.0 - 16.0 [facility] AGE 55 yrs [facility] NON-AA GFR >60 mL/min [facility] AFR AMER GFR >60 mL/min [facility] Male GFR In terprentation 20-49 [...] >32 mL/min Normal ID Date Data Source [id number] 12/10/2020 10:03:00 PM EDT [facility] Name Value Range Interpretation Code Description Data Erika rce(s) Supporting Document(s) TROPONIN T <0.01 NG/ML 0.00 - 0.10 [facility] ospital TROPONIN T0.1 ng/ml Recommended as the c linical threshold value forTroponin T. ID Date Data Source [id number] 12/10/2020 09:47:00 PM [facility] Name Value Range Interpretation Code Description Data Erika rce(s) Supporting Document(s) CBC W/AUTOMATED DIFF [facility] COMPLETE BLOOD COUNT Leukocytes [#/volume] in Blood by Automated count 13.4 10^3/uL 4.2 - 11.0 H [facility] Erythrocytes [#/volume] in Blood by Automated count 4.54 10^6/uL 4. 50 - 6.30 [facility] Hemoglobin [Mass/volume] in Blood 14.7 g/dL 14.0 - 16.0 [facility] Hematocrit [Volume Fraction] of Blood by Automated count 41.7 % 4 1.0 - 51.0 [facility] Erythrocyte mean corpuscular volume [Entitic volume] by Auto mated count 91.9 fL 80.0 - 94.0 [facility] Erythrocyte mean corpuscular hemoglobin [Entitic mass] by Automated count 32.4 pg 27.0 - 34.0 [facility] Erythrocyte mean corpuscular hemoglobin concentration [Mass/volume] by Automated count 35.3 g/dL 31.0 - 36.0 [facility] Erythrocyte distribution width [Ratio] by Automated count 12.7 % 11.5 - 14.8 [facility] Platelets [#/volume] in Blood by Automated count 366 10^3/uL 150 - 45 0 [facility] Platelet mean volume [Entitic volume] in Blood by Automated count 9.5 fL 7.4 - 10.4 [facility] Neutrophils/100 leukocytes in Blood by Automated count 64.7 % 37. 0 - 80.0 [facility] Lymphocytes/100 leukocytes in Blood by Manual count 25.6 % 25.0 - 40.0 [facility] Monocytes/100 leukocytes in Blood by Automated count 6.6 % 3.0 - 8.0 [facility] Eosinophils/100 leukocytes in Blood by Automated count 2.1 % 0.0 - 7.0 [facility] Basophils/100 leukocytes in Blood by Automated count 0.4 % 0.0 - 2.0 [facility] %IG 0.6 % 0.0 - 0.0 H [facility] al %NRBC 0.0 % 0.0 - 0.0 [facility] al Neutrophils [#/volume] in Blood by Automated count 8.66 10^3/uL 2.00 - 6.90 H [facility] Lymphocytes [#/volume] in Blood by Automated count 3.43 10^3/uL 0.60 - 3.40 H [facility] Monocytes [#/volume] in Blood by Automated count 0.88 10^3/uL 0.00 - 0.90 [facility] Eosinophils [#/volume] in Blood by Automated count 0.28 10^3/uL 0.00 - 0.70 [facility] Basophils [#/volume] in Blood by Automated count 0.06 10^3/uL 0.00 - 0.20 [facility] #IG 0.08 10^3/uL 0.00 - 0.10 [facility] ospital #NRBC 0.00 10^3/uL 0.00 - 0.00 [facility] ospital MANUAL DIFF NOT INDICATED [facility] RBC MORPH NOT INDICATED [facility] spital ID Date Data Source [id number] 12/10/2020 09:46:00 PM EDT [facility] Name Value Range Interpretation Code Description Data Erika rce(s) Supporting Document(s) Prothrombin time (PT) 13.2 SECONDS 11.0 - 15.5 [facility] INR in Platelet poor plasma by Coagulation assay 0.95 0.93 - 1. 23 [facility] aPTT in Blood by Coagulation assay 34.0 SECONDS 24.8 - 36.7 [facility] \\BLDo\\INR INTERPRETATION\\BLDx\\ Therapeutic range for Coumadin and related oral anticoagulants. - International Normalized Ratio (INR): 2.0 - 3.0 for Venous Thrombosis, Pulmonary Embolus, Tissue heart valves, Acute [place] Atrial Fibrillation, Valvular heart disease and recurrent Systemic Embolism. - International Normalized Ratio (INR): 2.5 - 3.5 for Mechanical Prosthetic valve. Procedure Social History Code Duration Value Status Description Data Source(s ) Smoking 05/04/2021 12:00:00 AM EDT Current Smoker completed Curre nt Smoker eCW1 ([facility]) Vital Signs ID Date Data Source UNK Name Value Range Interpretation Code Description Data Source(s) Body temperature 98.4 [degF] 98.4 [degF] MEDENT ([facility], [facility]) Body weight 290.00 [lb_av] 290.00 [lb_av] MEDEN T ([facility], [facility]) Systolic blood pressure 122 mm[Hg] 122 mm[Hg] M EDENT ([facility], [facility]) Diastolic blood pressure 80 mm[Hg] 80 mm[Hg] [facility] ([facility], [facility]) Heart rate 94 /min 94 /min [facility] ([facility], [facility]) Respiratory rate 17 /min 17 /min [facility] ( [facility]) Oxygen saturation in Arterial blood by Pulse oximetry 97 % 97 % [facility] ([facility]) Body height 76 [in_i] 76 [in_i] [facility] ([facility]) 6'4" Body mass index (BMI) [Ratio] 35.3 kg/m2 35.3 k g/m2 [facility] ([facility]) Body weight 296 [lb_av] 296 [lb_av] eCW1 ([facility]) Body height 76 [in_i] 76 [in_i] eCW1 ([facility]) Body mass index (BMI) [Ratio] 36.03 kg/m2 36.03 kg/m2 eCW1 ([facility]) Heart rate 93 /min 93 /min eCW1 ([facility]) Respiratory rate 18 /min 18 /min eCW1 ([facility]) Body temperature 97.4 [degF] 97.4 [degF] eCW1 ( [facility]) Systolic blood pressure 130 mm[Hg] 130 mm[Hg] e CW1 ([facility]) Diastolic blood pressure 80 mm[Hg] 80 mm[Hg] eCW1 ([facility])
[2021-06-16] MEDS ORDERED: ISOVUE-370 76% 100ML VIAL As Ordered ONE (07:34)
--- NOTE | 2021-06-16 08:39 | REP ---
INDICATION: CP r/o PE COMPARISON: None. TECHNIQUE: Axial contrast enhanced images from the thoracic inlet to the upper abdomen using pulmonary embolus technique with multiplanar re-formations. 75 ml Isovue 370 intravenous contrast material administered without complication. This CT examination was performed using the following dose reduction techniques: Automated exposure control, adjustment of mA and/or kv according to the patient's size, and use of iterative reconstruction technique. FINDINGS: Satisfactory enhancement of the pulmonary vasculature is achieved and acute pulmonary emboli are identified within 3rd order branch vessels to the left lower lobe (images 103-135) and 2nd/3rd order branch vessels to the right lower lobe (images 82-110). The lung parkinson themselves demonstrate minimal chronic changes primarily involving the right lower lung zone. No acute consolidation or effusion. No pneumothorax. No obvious suspicious nodule or mass lesion. Further evaluation of the mediastinum demonstrates atherosclerotic changes to the thoracic aorta and coronary arteries without aortic aneurysm/dissection or cardiomegaly. No pericardial effusion. No adenopathy. Tracheobronchial tree is patent. Surrounding musculoskeletal structures demonstrate age-related changes. IMPRESSION: 1. Pulmonary emboli to the bilateral lower lobes. No associated pulmonary parenchymal consolidation/atelectasis or effusion. 2. No further acute mediastinal or pleuroparenchymal process appreciated. <Electronically signed by Kings Koo > 06/16/21 [id number]
[2021-06-16] MEDS ORDERED: APIXABAN 5 MG TAB (ELIQUIS) PO SCH (09:00)
[2021-06-16] MEDS ORDERED: METO1TAB32 PO (10:07)
[2021-06-16] MEDS ORDERED: IBUP80TA PO (10:07)
[2021-06-16] MEDS ORDERED: ACID100C PO (10:07)
[2021-06-16] MEDS ORDERED: HOME MED LIST COMPLETE! XX SCH (10:10)
--- NOTE | 2021-06-16 10:26 | HPEPDOC ---
[facility] Medical History & Physical Date of Admission Jun 16, 2021 Date of Service: Jun 16, 2021 History and Physical CHIEF COMPLAINT: "Chest pain and felt winded" HISTORY OF PRESENT ILLNESS: 55-year-old male with past medical history of paroxysmal atrial fibrillation, hypertension, hyperlipidemia, degenerative disc disease of L5, and COPD presented to the emergency department with complaints of chest pain and shortness of breath. Of note, he is a poor historian of his past medical history and this was obtained from his primary care physician's note. He reported only having atrial fibrillation. On 06/15 patient was putting on tarp over his truck and began to experience diffuse chest pain, nonradiating without nausea, vomiting and diaphoresis and reported feeling winded. The symptoms resolved with rest. However, this morning he reported not feeling well and felt something was going on there for came to the emergency department to be further evaluated. In the ED EKG showed no ST/T wave changes. Initial troponin was negative. A CT angiogram was done which was positive for PE. PAST MEDICAL HISTORY: As mentioned above PAST SURGICAL HISTORY: 1. Right carcinoid tumor in 2005 SOCIAL HISTORY: Smokes 10 cigarettes/day. Denies alcohol use and recreational drug use. FAMILY HISTORY: Father: from liver cancer at the age of 57 Mother: Currently has breast cancer ALLERGIES: Please see below. REVIEW OF SYSTEMS: 10 point review of system was negative except for what is noted in the HPI HOME MEDICATIONS: Please see below. PHYSICAL EXAMINATION: VITAL SIGNS: Please see below General: Lying in bed, no acute distress Head/Neck/Throat: Trachea midline, mucous membranes moist Eyes: Sclera anicteric, PERRLA Thorax: Normal respiratory effort on room air, lungs clear to auscultation bilaterally, no wheezes/rales/rhonchi Cardiovascular: Normal rate, regular rhythm, normal S1, S2; no S3, S4, r ubs/gallops/murmurs Abdomen: Bowel sounds present, soft/nontender/nondistended Genitourinary: No CVA tenderness, no Kang in place Musculoskeletal: Moving all extremities, no edema Skin: Warm, dry Neurologic: AAOx3, speech fluent and goal-directed, no focal deficits, grossly intact LABORATORY DATA: See below. IMAGING: CT ANGIO CHEST FINDINGS: Satisfactory enhancement of the pulmonary vasculature is achieved and acute pulmonary emboli are identified within 3rd order branch vessels to the left lower lobe (images [id number]) and 2nd/3rd order branch vessels to the right lower lobe (images [id number] 110). The lung parkinson themselves demonstrate minimal chronic changes primarily involving the right lower lung zone. No acute consolidation or effusion. No pneumothorax. No obvious suspicious nodule or mass lesion. Further evaluation of the mediastinum demonstrates atherosclerotic changes to the thoracic aorta and coronary arteries without aortic aneurysm/dissection or cardiomegaly. No pericardial effusion. No adenopathy. Tracheobronchial tree is patent. Surrounding musculoskeletal structures demonstrate age-related changes. IMPRESSION: 1. Pulmonary emboli to the bilateral lower lobes. No associated pulmonary parenchymal consolidation/atelectasis or effusion. 2. No further acute mediastinal or pleuroparenchymal process appreciated. MICROBIOLOGY: Please see below. Duplex, Ext LOWER veins, bilat FINDINGS: Ultrasound examination of the right and left lower extremity deep venous structures from the common femoral vein through the calf/ankle to include the peroneal, and tibial veins demonstrates normal compressibility flow and wave patterns in response to respiration and augmentation. There is no evidence for deep venous thrombosis. Complex presumed left Earl's cyst measures 2.3 x 2.3 x 1.9 cm. IMPRESSION: No evidence for deep venous thrombosis. ASSESSMENT/PLAN: 55-year-old male presented emergency department with complaints of chest pain and shortness of breath on exertion. CTA noted bilateral PE. #Pulmonary embolism -In the setting of paroxysmal atrial fibrillation. Hemodynamically stable at this time. Patient will be started on Eliquis 10 mg twice daily for 7 days and then 5 mg twice daily #Paroxysmal atrial fibrillation -Rate is controlled at this time, on his ambulatory metoprolol. He will be systemically anticoagulated now with Eliquis. #DVT prophylaxis -Offered by Eliquis. Of note, he is not taking any medications for the above-mentioned chronic problems including hyperlipidemia and COPD. He will need follow-up with his primary care physician for ongoing management. Disposition: Patient can likely be discharged in the next 24 hours if hemodynamics remain stable. Vital Signs Vital Signs Date Time Temp Pulse Resp B/P (MAP) Pulse Ox O2 Delivery O2 Flow Rate FiO2 06/16/21 05:45 97.8 87 20 142/77 (98) 95 Room Air Laboratory Data Labs 24H Laboratory Tests 2 06/16/21 06:05: Immature Granulocyte % (Auto) 0.5, Neutrophils (%) (Auto) 72.4H, Lymphocytes (%) (Auto) 16.7L, Monocytes (%) (Auto) 8.3H, Eosinophils (%) (Auto) 1.6, Basophils (%) (Auto) 0.5, Neutrophils # (Auto) 7.7, Lymphocytes # (Auto) 1.8, Monocytes # (Auto) 0.9H, Eosinophils # (Auto) 0.2, Basophils # (Auto) 0.1, Nucleated Red Blood Cells % (auto) 0.0, Prothrombin Time 13.0, Prothromb Time International Ratio 0.94, Anion Gap 6L, Glomerular Filtration Rate > 60.0, Calcium Level 9.2, Total Bilirubin 0.3, Direct Bilirubin < 0.1, Aspartate Amino Transf (AST/SGOT) 14, Alanine Aminotransferase (ALT/SGPT) 24, Alkaline Phosphatase 90, CV-Jqb-O-Type Natriuretic Peptide 19, Total Protein 7.4, Albumin 3.6, Albumin/Globulin Ratio 0.9, Lipase 106 06/16/21 06:18: POC Troponin I (Misc) 0.00 CBC/BMP Laboratory Tests 06/16/21 06:05 Microbiology Microbiology 06/16/21 Respiratory Virus Panel (PCR) ([facility]) - Final, Complete Home Medications Scheduled Aspirin (Aspirin EC) 81 Mg Tablet.dr, 81 MG PO DAILY Ibuprofen (Ibuprofen) 800 Mg Tablet, 1,600 MG PO QAM Lactobacillus Acidophilus (Acidophilus) 100 Mg Capsule, 100 MG PO DAILY Metoprolol Succinate (Metoprolol Succinate) 25 Mg Tab.er.24h, 12.5 MG PO DAILY Allergies Coded Allergies: No Known Allergies (Unverified , 06/16/21) A-FIB/CHADSVASC A-FIB History Current/History of A-Fib/PAF?: Yes Current PO Anticoag Therapy: Yes ESTELA SIFUENTES M.D. Jun 16, 2021 10:21
--- OUTSIDE RECORDS SUMMARY | 2021-06-16 10:30 | CCD ---
Author Author [facility] Organization [facility] Address Unknown Phone Unavailable Care Team Providers Care Structural Steel Fitter Name Role Phone WetterHenok santos MD Unavailable [...] is protected by Article 27-F of the [facility] Public Health law. If you continue you may have access to information: Regarding HIV / AIDS; Provided by facilities licensed or operated by the [facility] Office of Mental Health; or Provided by the [facility] Office for People With Developmental Disabilities. If such information is present, then the following [facility] mandated warning applies: This information has [...] law may result in a fine or penitentiary sentence or both. A general authorization for [...] TYE auguste 05/12/2021 02:35:00 PM EDT MEDENT ([facility], [facility]) [place] [address] [place] [address] 05/04/2021 12:00:00 AM EDT eCW1 ([facility]) Unknown [address] [place] [address] 03/16/2021 12:00:00 AM EDT eCW1 ([facility]) Unknown [address] [place] [address] 03/14/2021 12:00:00 AM EDT eCW1 ([facility]) Unknown [address] [place] [address] 03/14/2021 12:00:00 AM EDT eCW1 ([facility]) Emergency Attender: Rocky Abraham ER-ER 02/12/20 08:15:00 PM EDT - 02/11/2021 09:01:00 PM EDT [facility] Patient discharged. Unknown [address] [place] [address] 12/20/2020 12:00:00 AM EDT eCW1 ([facility]) Emergency Attender: EMILY Palmer MDConsultant: Henok Bustillos MDConsultant: SPECIFIED NOT 12/10/2020 09:13:00 PM EDT - 12/11/2020 01:21:00 AM EDT [facility] Patient discharged. Unknown [address] [facility] [place] [address] 05/05/2020 12:00:00 AM EDT eCW1 ([facility]) Immunizations Vaccine Date Status Description Data Source(s) COVID-19 VACCINE Pfizer 03/10/2021 12:00:00 AM EDT completed [facility] Vaccine Series Complete: NOThis Data was Submitted to [facility] Via [employer]. Medications Medication Brand Name Start Date Product [...] MG 05/12 12:00:00 AM EDT completed MEDENT ([facility], [facility]) Medication administered onsite Amoxicillin 875 MG / Clavulanate 125 MG Oral Tablet Am oxicillin/Clavulanate Potassium 05/12/2021 12:00:00 AM EDT ORAL active MEDENT ([facility], [facility]) 25 mg 05/11/2021 12:00:00 AM EDT [...] type / Coverage type Policy ID Covered alliance party ID Covered alliance party's relationship to [place] Policy [place] Plan Information POMCO [id number] WI2 [id number] POMCO [id number] WI2 [id number] AGUILAR CARE [id number] S [id number] AGUILAR MEDICAID [facility] AGUILAR CARE OF [place] - [id number] [id number] [facility] O [id number] S [id number] ANSI-Medicaid [id number] ANSI-Medicaid [id number] ANSI-Not a Secondary Insurance [id number] ANSI-Not a Secondary Insurance [id number] ANSI-Not a Secondary Insurance [id number] [facility] [id number] [facility] [id number] [facility] Maintenance [facility] ([facility] [id number] Self [id number] [facility] ([facility]) [id number] Self [id number] [facility] [id number] SELF PAY O [id number] S O UNAVAILABLE UNAVAILA BLE MILK STREE DAIRY [id number] SP [id number] DAIRY [id number] SP [id number] POMCO-O/P [id number] 01 [id number] POMCO PPO P [id number] P [id number] ANSI-Not a Secondary Insurance [id number] [facility] [id number] SP [id number] [facility] [id number] SP [id number] Problems, Conditions, and Diagnoses Code Display Name Description Problem Type Effective Dates Data Source(s) Z79.82 custodial (current) use of aspirin SKILLED NURSING (CU RRENT) USE OF ASPIRIN Diagnosis 02/11/2021 08:15:00 PM EDT [facility] F17.200 Nicotine dependence, unspecified, uncomp licated NICOTINE DEPENDENCE, UNSPECIFIED, UNCOMPLICATED Diagnosis 02/11/2021 08:15:00 PM EDT [facility] K02.9 Dental caries, unspecified DENTAL CARIES, UNSPECIFIED Diagnosis 02/11/2021 08:15:00 PM EDT [facility] K08.89 OTHER SPECIFIED DISORDERS OF TEETH AND S UPPORTING STRUCTURES OTHER SPECIFIED DISORDERS OF TEETH AND SUPPORTING STRUCTURES Diagnosis 02/11/2021 08:15:00 PM EDT [facility] A52401 Personal history of nicotine dependence Personal history of nicotine dependence Diagnosis 12/10/2020 09:13:00 PM EDT [facility] Z5320 Procedure and treatment not carried out because of patient's decision for unspecified reasons Procedure and treatment not carried out because of patient's decision for unspecified reasons Diagnosis 12/10/2020 09:13:00 PM EDT [facility] I480 Paroxysmal atrial fibrillation Paroxysmal atrial fibri llation Diagnosis 12/10/2020 09:13:00 PM EDT [facility] R002 Palpitations Palpitations Diagnosis 12/10/2020 09:13:00 P M EDT [facility] M17.11 [id number] Arthritis of right knee Problem 05/04/2021 12:00:00 AM EDT eCW1 ([facility]) M17.12 [id number] Arthritis of left knee Problem 1 12:00:00 AM EDT eCW1 ([facility]) Surgeries/Procedures Procedure Description Date Indications Data Source(s) Therapeutic, Prophylactic Or Diagnostic Injection Subq/Im 05/12/2021 12:00:00 AM EDT MEDENT ([facility], [facility]) OFFICE OUTPATIENT VISIT 15 MINUTES 05/12/2021 12:00:00 AM EDT MEDENT ([facility], [facility]) Results ID Date Data Source [id number] 05/12/2021 12:00:00 AM EDT [facility] Name Value Range Interpretation Code Description Data Erika rce(s) Supporting Document(s) SARS-CoV2 Rapid Antigen Negative [facility] This lab was reported by [facility]. ID Date Data Source ADM KNEE COMPLETE 05/04/2021 12:00:00 AM EDT eCW1 ([facility]) Name Value Range Interpretation Code Description Data Erika rce(s) Supporting Document(s) ADM KNEE COMPLETE eCW1 ([facility]) ID Date Data Source PSA SCREENING 05/04/2021 12:00:00 AM EDT eCW1 ([facility]) Name Value Range Interpretation Code Description Data Erika rce(s) Supporting Document(s) 0.72 < 4.00 PSA SCREENING eCW1 ([facility]) ID Date Data Source LIPID PANEL (CARDIAC RISK) 05/04/2021 12:00:00 AM EDT eCW1 ( [facility]) Name Value Range Interpretation Code Description Data Erika rce(s) Supporting Document(s) Triglyceride [Mass/volume] in Serum or Plasma by calculation 121 <150 TRIGLYCERIDES LEVEL eCW1 ([facility]) Cholesterol [Moles/volume] in Serum or Plasma 201 <200 CHOLESTEROL LEVEL eCW1 ([facility]) 161 NON-HDL-C eCW1 ([facility]) Cholesterol in LDL [Mass/volume] in Serum or Plasma by calculation 137 <100 LDL CHOLESTEROL eCW1 ([facility]) Cholesterol in HDL [Moles/volume] in Serum or Plasma 40 >40 HDL CHOLESTEROL eCW1 ([facility]) 5.025 <5 CHOLESTEROL RISK RATIO eCW1 ([facility]) ID Date Data Source [id number] 05/04/2021 12:00:00 AM EDT eCW1 ([facility]) Name Value Range Interpretation Code Description Data Erika rce(s) Supporting Document(s) Hemoglobin A1c/Hemoglobin.total in Blood 5.4 HEMOGLOBIN A1c eCW1 ([facility]) ID Date Data Source FREE T4 & TSH PANEL 05/04/2021 12:00:00 AM EDT eCW1 ([facility]) Name Value Range Interpretation Code Description Data Erika rce(s) Supporting Document(s) 1.710 0.358-3.740 THYROID STIMULATING HORM ONE eCW1 ([facility]) 1.06 0.76-1.46 FREE T4 eCW1 ([facility]) ID Date Data Source Comprehensive Metabolic Profile (CMP) 05/04/2021 12:00:00 AM EDT eCW1 ([facility]) Name Value Range Interpretation Code Description Data Erika rce(s) Supporting Document(s) 16 7-18 BLOOD UREA NITROGEN eCW1 ([facility]) 0.91 0.70-1.30 CREATININE FOR GFR eCW1 ([facility]) 77 70-100 GLUCOSE, FASTING eCW1 ([facility]) 107 98-107 CHLORIDE LEVEL eCW1 ([facility]) 4.2 3.5-5.1 POTASSIUM SERUM eCW1 ([facility]) 139 136-145 SODIUM LEVEL eCW1 ([facility]) > 60.0 >56 GLOMERULAR FILTRATION RATE eCW 1 ([facility]) 27 12-78 ALT/SGPT eCW1 ([facility]) 16 7-37 AST/SGOT eCW1 ([facility]) 9.2 8.5-10.1 CALCIUM LEVEL eCW1 ([facility]) 28 21-32 CARBON DIOXIDE LEVEL eCW1 ([facility]) 7.2 6.4-8.2 TOTAL PROTEIN eCW1 ([facility]) 0.6 0.2-1.0 BILIRUBIN,TOTAL eCW1 ([facility]) 77 45-117 ALKALINE PHOSPHATASE eCW1 ([facility]) 3.6 3.2-5.2 ALBUMIN eCW1 ([facility]) 1.0 ALBUMIN/GLOBULIN RATIO eCW1 ([facility]) ID Date Data Source CBC - Complete Blood Count 05/04/2021 12:00:00 AM EDT eCW1 ( [facility]) Name Value Range Interpretation Code Description Data Erika rce(s) Supporting Document(s) 11.5 4.0-10.0 WHITE BLOOD COUNT eCW1 ([facility]) 4.36 4.30-6.10 RED BLOOD COUNT eCW1 ([facility]) 40.4 42.0-52.0 HEMATOCRIT eCW1 ([facility]) 92.7 80.0-96.0 MEAN CORPUSCULAR VOLUME e CW1 ([facility]) 13.6 13.5-17.5 HEMOGLOBIN eCW1 ([facility]) 31.2 27.0-33.0 MEAN CORPUSCULAR HEMOGLOB IN eCW1 ([facility]) 12.5 11.5-14.5 RED CELL DISTRIBUTION WID TH eCW1 ([facility]) 33.7 32.0-36.5 MEAN CORPUSCULAR HGB CONC eCW1 ([facility]) 333 150-450 PLATELET COUNT, AUTOMATED eCW1 ([facility]) ID Date Data Source [id number] 02/11/2021 09:01:00 PM EDT N[facility] Sonia heller Physician DocumentationClaxmyra-Raji vasques CenterName: Arnold DobsonAge: 55 yrsSex: MaleDOB: 1965MRN: [id number] Date: 02/11/2021Time: 20:15Account#: [id number] Fast Rv3Rkunjjf MD:ED Physician Greta Abraham Summary:02/11/21 20:42Discharge OrderedLocation: Home Self Care bk6Ffjyokr: an acute exacerbation ew2Kmrvngbq: have improved iy8Eswgxcxlv: Stable ba4Piymgyhbl- Dental caries, unspecified hm1Fexckgqc: dk2- With: Jaime Winston DDS- When: 1 - 2 days- Reason: Further diagnostic work-up, Recheck today's complaintsFollowup: dk2- With: Emergency Department- When: As needed- Reason: Worsening of conditionDischarge Instructions:- Discharge Summary Sheet dk2- DENTAL CAVITY ab1Bnrqo:- Medication Reconciliation dk2- Medication Reconciliation Form - 2nd Copy tu2Andrpzefavbdf:- Clindamycin HCl 300 mg Oral Capsule- take 1 capsule by ORAL route every 6 hours for 10 days; 40 na5ogzmxum; Refills: 0, Product Selection PermittedHPI:01/1620:33 This 55 yrs old Male presents to ER via Private Vehicle with tv7ihqzzcrbka of Toothache.20:33 Patient presents stating right upper mouth pain associated with kn5iyzhdo fracture. Patient states dental fracture a few [...] for poor PO intake, Negative for chills, iv1jague. Eyes: Negative for itching, pain, photophobia. ENT: [...] patient appears in no acute distress, alert, bw1ycuxl, non-diaphoretic, non-toxic, well developed, in obvious pain,uncomfortable.20:51 [...] Temp 97.9(TE); Pulse Ox 98% ; Weight vm6325.73 kg (R); Height 6 ft. 3 in. (190.50 cm) (R); Pain 8/10;21:01 BP 124 / 83; ef120:16 Body Mass Index 35.75 (129.73 kg, 190.50 cm) pt8Hzwoeui Coma Score:20:51 Eye Response: spontaneous(4). Verbal Response: oriented(5). Motor ve4Ecgtmril: obeys commands(6). Total: 15.Procedures:20:53 Dental block: Loca tion: periapical block, Medication: Marcaine 0.5%, mg6Acnrwk: 2 mls were injected, Effect: the patient's symptoms areimproved, markedly, the patient tolerated the procedure well.MDM:20:19 Patient medically screened. dk220:54 Data reviewed: nurses notes. ED course: Patient presenting with gf8pqfntrf dental fractures stating swelling, concern for impendingdental [...] [clindamycin HCl 300 mg capsule (1 caps)] kk0Zpyaz: PO;21:00 Follow up: Response: Medication administered at discharge. ef120:38 Drug: Bupivacaine 0.25 % 10 ml {Note: given by MD.} Route: by1Qvatknlsonsc;21:00 Drug: Clindamycin 300 mg [clindamycin HCl 300 mg capsule (1 caps)] rm0Loziz: PO;21:00 Follow up: Response: Medication administered at discharge. ef121:00 Drug: Clindamycin 300 mg [clindamycin HCl 300 mg capsule (1 caps)] tx4Wwvkg: PO;21:00 Follow up: Response: Medication administered at discharge. ym0Bdkbuyrsxa:Anabella Miller RN RN wh9BifjzyvRocky Abraham MD MD bw9FkdetgjbuLyric Mckeon RN RN cm4 Name Value Range Interpretation Code Description Data Erika rce(s) Supporting Document(s) ID Date Data Source [id number] 02/11/2021 09:01:00 PM EDT [facility] terName: Arnold DobsonAge: 55 yrsSex: MaleDOB: 1965MRN: [id number] Date: 02/11/2021Time: 20:15Account#: [id number] Fast Cm7Thgvimj MD:Diagnosis: Dental caries, unspecifiedPresentation:01/1620:16 Presenting complaint: Patient states: his tooth broke and now his ji2njlh is swollen. Coronavirus Screening: Have you been diagnosed withCOVID-19 in the past 30 days? no [facility] no Flu-like symptoms reported in the last 14 days: no.Have you had close contact with confirmed or suspected COVID-19 case?no Do you live in a setting where a large of amount of people live,such as half-way, family care, penitentiary, etc? no. Have you traveledto a location with widespread or ongoing COVID-19 community spread Critical access hospital? no Have you traveled internationally or hadcontact with someone that has traveled and has been ill in the past 3weeks? no Have you received the COVID vaccine? No. CommunicableDisease Screen: Negative for fever>/= 100 degrees Fahrenheit.Communicable disease screen is negative. (-) rash or unusual skinlesion (-) travel/contact with traveler (-) respiratory symptoms.Communication Speaks Serbian? Yes, is preferred language.20:16 Acuity: Triage 4 cm420:16 Acuity Assignment: Triage 4 cm420:16 Method Of Arrival: Private Vehicle tq3Sqhaiv Assessment:20:17 General: Appears in no apparent distress, Behavior is cooperative. hn3Tcazck Screening: (1)Signs/symptoms infection No. Pain: Com plains [...] Denies threats or abuse. Nutritional screening: No xo9ajmgdbdy noted. Offer of HIV testing: patient was previously offeredscreening. Fall Risk None identified.Assessment:20:20 Reassessment: No changes from previously documented assessment. po5Jindf Signs:20:16 BP 152 / 78; Pulse 80; Resp 18; Temp 97.9(TE); Pulse Ox 98% ; Weight vz1131.73 kg (R); Height 6 ft. 3 in. (190.50 cm) (R); Pain 8/10;21:01 BP 124 / 83; ef120:16 Body Mass Index 35.75 (129.73 kg, 190.50 cm) wz0Tpsbmtl Coma Score:20:51 Eye Response: spontaneous(4). Verbal Response: oriented(5). Motor bl2Scexdkqd: obeys commands(6). Total: 15.ED Course:20:15 Patient arrived [...] Physician. dk221:01 No Physician assisted procedures completed. fr6Szlwhiqqczvq Medications:20:36 Drug: Clindamycin 300 mg [clindamycin HCl 300 mg capsule (1 caps)] bl1Lkbvj: PO;21:00 Follow up: Response: Medication administered at discharge. ef120:38 Drug: Bupivacaine 0.25 % 10 ml {Note: given by MD.} Route: to0Wnyghjvozqoo;21:00 Drug: Clindamycin 300 mg [clindamycin HCl 300 mg capsule (1 caps)] mq4Vdgaa: PO;21:00 Follow up: Response: Medication administered at discharge. ef121:00 Drug: Clindamycin 300 mg [clindamycin HCl 300 mg capsule (1 caps)] qr9Xvbxw: PO ;21:00 Follow up: Response: Medication administered at discharge. jq0Geimlns:20:42 Discharge ordered by . dk221:01 Disposition: Discharged [...] or no assistance.21:01 Patient left the ED. ad1Tsickwculs:Anabella Miller RN RN sl9SsdjtveRocky Abraham MD MD gn1HixqfougjLyric Mckeon RN RN cm4 Name Value Range Interpretation Code Description Data Erika rce(s) Supporting Document(s) ID Date Data Source [id number] 12/14/2020 10:18:00 AM EDT [facility] [address] [place] [address] PHONE: [phone] FAX: [phone] Name .................. : [place] Acct Number.................. : [id number] ROOM. ................. : VT-16 Number ................... : [id number] Stay type ............. : E/R Discharge Date......... ... : Admit Date ......... : 0 12/10/20 Admit Phys .................... : [facility] Date of ....... : 1965 Family Phys ................... : [facility] Phone .................. : [phone] Age ................................ : 55 Film# .................. .:[id number] Sex ................................. : M Unsigned transcriptions are preliminary reports and do not represent a medical or legal document CHEST PORTABLE [id number] COMPLETE:12/10/20 21:57 RLB 04802 Reason(s): Chest Pain PORTABLE CHEST X-RAY: INDICATION: [...] rce(s) Supporting Document(s) ID Date Data Source [id number] 12/12/2020 08:48:00 [place] [address] RESPIRATORY CARE REPORT ==== ---------NAME------- NUMBER SEX AGE ADMIT DISC. XRAY# F/C RAMESHTRACEY ARN[place] [id number] M 55 12/10/20 12/11/20 [id number] XB2 E/R DATE OF : 1965 M/R# [id number] #: [id number] VT-16 LOCATION: EMERGENCY DEPT EKG [id number] COMPLE TE:12/11/20 00:55 [place] [id number] PHYSICIAN: JOVANNA Name Value Range Interpretation Code Description Data Eriak rce(s) Supporting Document(s) ID Date Data Source [id number] 12/10/2020 09:13:00 PM EDT [facility] 1 OrderSheet [facility] Emergency Department [address] [place] [address] Phone #: [phone] nsz- [phone] 12/10/2020 21:08 Patient: ARNOLD ESPARZA Sex: M [...] Reason for Study: Chest Pain 2 OrderSheet [facility] Emergency Department [address] [place] [address] Phone #: ext- [phone] 12/10/2020 21:08 -------- Patient: ARNOLD ESPARZA Sex: [...] Pressure 21:25 12/10/2020 21:31 Emily Quiñonez RN ;Machine Pie Maker 21:25 12/10/2020 21:31 Glenn(continuous) Emily Nugent RN 3 OrderSheet [facility] Emergency Department [address] [place] [address] Phone #: ext- [phone] 12/10/2020 21:08 [id number] Sex: M : 1965 Age: 55y ;EKG [...] by David Britton RN (:12/11/2020)][Electronically signed by Eimly Nugent (07:01 12/11/2020)][Electronically locked by David Britton RN (:12/11/2020)] Name Value Range Interpretation Code Description Data Erika rce(s) Supporting Document(s) ID Date Data Source [id number] 12/10/2020 09:13:00 PM EDT [facility] 1 Medication Reconciliation Report [facility] Emergency Department [address] [place] [address] Phone #: ext- [phone] 12/10/2020 21:08 Patient: ARNOLD ESPARZAN: [id number] Sex: M : 1965 Age: 55yWeight: 117.9 [...] Refills: 0.Substitution permitted. 2 Medication Reconciliation Report [facility] Emergency Department [address] [place] [address] Phone #: ext- [phone] 12/10/2020 21:08 Patient: ARNOLD ESPARZA Sex: M : 1965 Age: 55yPharmacy - [facility] - [id number] ; [place], [place] [id number]. . -- Emily Nugent Name Value Range Interpretation Code Description Data Erika rce(s) Supporting Document(s) ID Date Data Source [id number] 12/10/2020 09:13:00 PM EDT [facility] 1 Medication Administration Record [facility] Emergency Department [address] [place] [address] Phone #: ext- [phone] 12/10/2020 21:08 Patient: ARNOLD ESPARZA Sex: M : 1965 Age: 55yWeight: 117.9 kgHeight/Length: 76 inBMI: 31.7ALLERGIES: No Known Drug Allergy Date/Time Medication Administered Medication OrderedGiven ASPIRIN CHEWABLE 81 MG [PO] Aspirin PO Chewable 81 mg 21821:36 12/10/2020 Dose: 324 mg Tablets PO mg (NOW)Glenn Shah RNGiven CARDIZEM [IVP] (DILTIAZEM HCL) Cardizem IVP 10 mg (NOW)21:53 12/10/2020 Dose: 10 mg IVPGKvng stewart R.N. Site: #1 right forearmStart NS [IV] NS IV : 200 mL/hr21:54 12/10/2020 Dose: IV FluidsKvng Champion R.N. Rate: 200 mL/hr over 5 hour(s)---- Dispensed: 1000 mL bagStop Site: #1 right fxizqit67:30 12/10/2020Lina Britton R.N.Start CARDIZEM [IV DRIP] Cardizem Drip IV : 10 mg/hr (Add22:13 12/10/2020 Dose: 10 mg Drip IV 125 mg (25 mL) to 100 mL NS Kvng Daniels R.N. Rate: 10 mg/hr over 12 hour(s) get 125 mg/125 mL (1 mg/mL))---- Dispensed: 125 mL bagStop Site: #1 right dfyobso58:08 12/11/2020Paty Felton NS [IV] NS IV 1000 mL Bolus: : Bolus 800402:40 12/10/2020 Dose: IV Fluids mL (X1)Lina Britton R.N. Rate: 1000 mL/hr---- Dispensed: 1000 mL bagStop Site: #1 right qtaswct35:30 12/10/2020Ion Felton ATIVAN [IVP] (LORAZEPAM) Ativan IVP 2 mg (NOW x1, HIGH22:25 12/10/2020 Dose: 2 mg IVP ALERT MEDICATION)Kvng Champion R.N. Site: #1 right forearmGiven METOPROLOL [PO] Metoprolol PO 25 mg (NOW x1)01:10 12/11/2020 Dose: 25 mg Tablets POStcady Britton RN Name Value Range Interpretation Code Description Data Erika rce(s) Supporting Document(s) ID Date Data Source [id number] 12/10/2020 09:13:00 PM EDT [facility] 1 General Instructions [facility] Emergency Department [address] [place] [address] Phone #: ext- [phone] 12/10/2020 21:08 Patient: [...] Dispense 30 tablet. Refills: 0.Substitution permitted.Pharmacy - [facility] - [id number] ; [place], [place] [id number]. .Follow-up:Follow up with your healthcare provider tomorrow. [...] provided.Follow-up with: Tye Izquierdo MD, Cardiology, , [address] [place] [address], [phone] Follow up tomorrow if not better. Call for an appointment. Reason for referral: evaluation. 2 General Instructions [facility] Emergency Department [address] [place] [address] Phone #: ext- [phone] 12/10/2020 21:08 Patient: ARNOLD ESPARZA Sex: M [...] a couple ofdays. Or it may become skilled nursing (chronic), lasting for months at a time or even become permanent.Some symptoms of atrial fibrillation are hard to notice. They include feeling less able to exercise.Some people have no symptoms.Atrial fibrillation is more common in older adults. It may be caused by heart disease or otherconditions in the body that affect the heart. They include: 3 General Instructions [facility] Emergency Department [address] [place] [address] Phone #: ext- [phone] 12/10/2020 21:08 Patient: RANOLD ESPARZA Sex: M : 1965 Age: 55y [...] stop-smoking program for help. 4 General Instructions [facility] Emergency Department [address] [place] [address] Phone #: ext- [phone] 12/10/2020 21:08 Patient: [...] as advised.When to seek medical adviceCall your [facility] provider right away if any of [...] with speech or vision 5 General Instructions [facility] Emergency Department [address] [place] [address] Phone #: ext- [phone] 12/10/2020 21:08 Patient: ARNOLD ESPARZA Sex: M : 1965 Age: 55y Extreme drowsiness, confusion, dizziness, or fainting [id number] [employer] [place] [address]. All rights reserved. This information is not intended as asubstitute for professional medical care. Always follow your healthcare professional's instructions. You have been given the following additional information: Atrial Fibrillation(Electronically signed by Emily Nugent 12/11/2020 07:01) Name Value Range Interpretation Code Description Data Erika rce(s) Supporting Document(s) ID Date Data Source [id number] 12/10/2020 09:13:00 PM EDT [facility] 1 Clinical Report - Nurses [facility] Emergency Department [address] [place] [address] Phone #: ext- [phone] 12/10/2020 21:08 Patient: [...] happened to him in the past also).Treatment PHARMACOGNOSIST:None.SEPSIS SCREEN: SIRS SCREEN NEGATIVE: heart rate greater [...] HIV testing 2 Clinical Report - Nurses [facility] Emergency Department [address] [place] [address] Phone #: ext- [phone] 12/10/2020 21:08 Patient: ARNOLD ESPARZA Sex: M [...] (per Kvng SAMUEL). --21:33 12/10/20Glenn Shah RN bus monitor, NIBP monitor and pulse oximeter placed on patient; cardiac nurse- Lead II; monitor 3 Clinical Report - Nurses [facility] Emergency Department [address] [place] [address] Phone #: ext- [phone] 12/10/2020 21:08 Patient: [...] Britton R.N. 4 Clinical Report - Nurses [facility] Emergency Department [address] [place] [address] Phone #: ext- [phone] 12/10/2020 21:08 Patient: ARNOLD ESPARZA Sex: M [...] rce(s) Supporting Document(s) ID Date Data Source [id number] 12/10/2020 09:13:00 PM EDT [facility] 1 Clinical Report - Physicians/Mid Levels [facility] Emergency Department [address] [place] [address] Phone #: ext- [phone] 12/10/2020 21:08 Patient: ARNOLD ESPARZA Sex: M : 1965 Age: 55y Time Seen: 21:11 12/10/2020; initial patient contact, initial documentation. Arrived- By private vehicle. Historian- patient. Disposition decision: 00:41 12/11/2020.HISTORY OF PRESENT ILLNESS Chief Complaint: PALPITATIONS. This started today a few hours PHARMACOGNOSIST and is still present (persistent). (patient was [...] mild chest discomfort with the palpitation). Treatment PHARMACOGNOSIST: (none).REVIEW OF SYSTEMSNo fever, chills, cough, orthopnea [...] use. 2 Clinical Report - Physicians/Mid Levels [facility] Emergency Department [address] [place] [address] Phone #: ext- [phone] 12/10/2020 21:08 Patient: [...] - 0.0) 3 Clinical Report - Physicians/[facility] Emergency Department [address] [place] [address] Phone #: ext- [phone] 12/10/2020 21:08 Patient: [...] Male GFR Interprentation 20-49 yrs >60 mL/min Ifwrft24-22 yrs >56 mL/min Normal 60-69 yrs >49 mL/min Normal 70-79yrs>42 mL/min Normal 80 and above >35 mL/min Normal Female GFRInterpretation 20-39 yrs >60 mL/min Normal 40-49 yrs >58 mL/minNormal 50-59 yrs >51 mL/min Normal 60-69 yrs >45 mL/min Knijxz20-48 yrs >39 mL/min Normal 80 and above >32 mL/min NormalLipase: (XIN: 12/10/2020 21:20) ( MsgRcvd 12/10/2020 22:03) Final results Test Result Flag Units (Reference) LIPASE 94 H U/L (13 - 60)PT/PTT: (XIN: 12/10/2020 21:20) ( [facility] 12/10/2020 21:46) Final results Test Result Flag Units (Reference) PROTIME 13.2 SECONDS (11.0 - 15.5) INR 0.95 (0. 93 - 1.23) PTT 34.0 SECONDS (24.8 - 36.7) \\BLDo\\INR INTERPRETATION\\BLDx\\ Therapeutic range for Coumadin andrelated oral anticoagulants. -International Normalized Ratio (INR): 2.0 - 3.0 for VenousThrombosis, Pulmonary Embolus, Tissue heart valves, Acute NC Atrial Fibrillation, Valvular heart diseaseand recurrent Systemic Embolism. -International Normalized Ratio (INR): 2.5 - 3.5 forMechanical Prosthetic valve. 4 Clinical Report - Physicians/[facility] Emergency Department [address] [place] [address] Phone #: ext- [phone] 12/10/2020 21:08 Patient: ARNOLD ESPARZA Sex: M : 1965 Age: 55y Troponin-T: (XIN: 12/10/2020 21:20) ( [facility] 12/10/2020 22:03) Final results Test Result Flag Units (Reference) TROPONIN T <0.01 NG/ML (0.00 - 0.10) TROPONIN T0.1 ng/ml Recommended as the clinical threshold value David Nicholson Chest Portable 1 View: (XIN: 12/10/2020 21:25) ( [facility] 12/10/2020 21:57) In Progress CHEST PORTABLE Reason(s): [...] discontinued. he was advised to see his levi maker as soon as possible and advised to increase his metoprolol to 25 mg PO. Patient counseled in person regarding the patient's stable condition, test results, diagnosis and need for follow-up. Patient agrees with plan of care. 00:41. 5 Clinical Report - Physicians/Mid Levels [facility] Emergency Department [address] [place] [address] Phone #: ext- [phone] 12/10/2020 21:08 Patient: [...] tablet. Refills: 0. Substitution permitted. Pharmacy - [id number] - [id number] ; [place], [place] [id number]. . Follow-up: Follow up with your healthcare [...] Follow-up with: Tye Izquierdo MD, Cardiology, , [address] [place] [address], [facility] 6 Clinical Report - Physicians/Mid Levels [facility] Emergency Department [address] [place] [address] Phone #: ext- [phone] 12/10/2020 21:08 Patient: ARNOLD ESPARZA Sex: M : 1965 Age: 55y Follow up tomorrow if not better. Call for an appointment. Reason for referral: evaluation.(Electronically signed by Emily Nugent 12/11/2020 07:01) Name Value Range Interpretation Code Description Data Erika rce(s) Supporting Document(s) ID Date Data Source [id number] 12/11/2020 12:29:00 AM EDT [facility] Name Value Range Interpretation Code Description Data Erika rce(s) Supporting Document(s) Thyrotropin [Units/volume] in Serum or Plasma by Detec tion limit <= 0.05 mIU/L 2.81 uIU/mL 0.47 - 5.01 [facility] ID Date Data Source [id number] 12/10/2020 10:07:00 PM EDT [facility] Name Value Range Interpretation Code Description Data Erika rce(s) Supporting Document(s) Thyroxine (T4) free index in Serum or Plasma by calculation 1.28 NG/DL 0.93 - 1.70 [facility] ID Date Data Source [id number] 12/10/2020 10:03:00 PM EDT [facility] Name Value Range Interpretation Code Description Data Erika rce(s) Supporting Document(s) Lipase [Enzymatic activity/volume] in Serum or Plasma 94 U/L 13 - 60 H [facility] ID Date Data Source [id number] 12/10/2020 10:03:00 PM EDT [facility] Name Value Range Interpretation Code Description Data Erika rce(s) Supporting Document(s) COMPREHENSIVE METABOLIC PANEL [facility] COMPREHENSIVE METABOLIC PANEL Sodium [Moles/volume] in Serum or Plasma 141 mEq/L 134 - 153 [facility] Potassium [Moles/volume] in Serum or Plasma 3.8 mEq/L 3.6 - 5.0 [facility] Chloride [Moles/volume] in Serum or Plasma 107 mEq/L 98 - 107 [facility] Carbon dioxide, total [Moles/volume] in Serum or Plasma 22 MEQ/L 22 - 30 [facility] Glucose [Mass/volume] in Serum or Plasma 129 MG/DL 70 - 99 H [facility] BUN 20 MG/DL 7 - 21 [facility] al Creatinine [Mass/volume] in Serum or Plasma 0.8 MG/DL 0.7 - 1.5 [facility] BUN/CREAT 25 8 - 27 [facility] al Protein [Mass/volume] in Serum or Plasma 7.0 G/DL 6.3 - 8.2 [facility] Albumin [Mass/volume] in Serum or Plasma 4.2 G/DL 3.9 - 5.0 [facility] Globulin [Mass/volume] in Serum by calculation 2.8 GM/DL 2.4 - 3.2 [facility] A/G RATIO 1.5 0.8 - 2.0 [facility] Calcium [Mass/volume] in Serum or Plasma 9.4 MG/DL 8.4 - 10.2 [facility] Bilirubin.total [Mass/volume] in Serum or Plasma <0.7 MG/DL 0.2 - 1.3 [facility] Alkaline phosphatase [Enzymatic activity/volume] in Serum or Plasma 81 U/L 38 - 126 [facility] Aspartate aminotransferase [Enzymatic activity/volume] in Serum or Plasma 17 U/L 5 - 40 [facility] Alanine aminotransferase [Enzymatic activity/volume] in Seru m or Plasma 17 U/L 7 - 56 [facility] Anion gap 3 in Serum or Plasma 12.0 mmol/L 8.0 - 16.0 [facility] AGE 55 yrs [facility] Hospit al NON-AA GFR >60 mL/min [facility] H[facility] ital AFR AMER GFR >60 mL/min [facility] Ho sp[facility] Male GFR In terprentation 20-49 [...] >32 mL/min Normal ID Date Data Source [id number] 12/10/2020 10:03:00 PM EDT [facility] Name Value Range Interpretation Code Description Data Erika rce(s) Supporting Document(s) TROPONIN T <0.01 NG/ML 0.00 - 0.10 [facility] ospital TROPONIN T0.1 ng/ml Recommended as the c linical threshold value forTroponin T. ID Date Data Source [id number] 12/10/2020 09:47:00 PM [facility] Name Value Range Interpretation Code Description Data Erika rce(s) Supporting Document(s) CBC W/AUTOMATED DIFF [facility] COMPLETE BLOOD COUNT Leukocytes [#/volume] in Blood by Automated count 13.4 10^3/uL 4.2 - 11.0 H [facility] Erythrocytes [#/volume] in Blood by Automated count 4.54 10^6/uL 4. 50 - 6.30 [facility] Hemoglobin [Mass/volume] in Blood 14.7 g/dL 14.0 - 16.0 [facility] Hematocrit [Volume Fraction] of Blood by Automated count 41.7 % 4 1.0 - 51.0 [facility] Erythrocyte mean corpuscular volume [Entitic volume] by Auto mated count 91.9 fL 80.0 - 94.0 [facility] Erythrocyte mean corpuscular hemoglobin [Entitic mass] by Automated count 32.4 pg 27.0 - 34.0 [facility] Erythrocyte mean corpuscular hemoglobin concentration [Mass/volume] by Automated count 35.3 g/dL 31.0 - 36.0 [facility] Erythrocyte distribution width [Ratio] by Automated count 12.7 % 11.5 - 14.8 [facility] Platelets [#/volume] in Blood by Automated count 366 10^3/uL 150 - 45 0 [facility] Platelet mean volume [Entitic volume] in Blood by Automated count 9.5 fL 7.4 - 10.4 [facility] Neutrophils/100 leukocytes in Blood by Automated count 64.7 % 37. 0 - 80.0 [facility] Lymphocytes/100 leukocytes in Blood by Manual count 25.6 % 25.0 - 40.0 [facility] Monocytes/100 leukocytes in Blood by Automated count 6.6 % 3.0 - 8.0 [facility] Eosinophils/100 leukocytes in Blood by Automated count 2.1 % 0.0 - 7.0 [facility] Basophils/100 leukocytes in Blood by Automated count 0.4 % 0.0 - 2.0 [facility] %IG 0.6 % 0.0 - 0.0 H [facility] al %NRBC 0.0 % 0.0 - 0.0 [facility] al Neutrophils [#/volume] in Blood by Automated count 8.66 10^3/uL 2.00 - 6.90 H [facility] Lymphocytes [#/volume] in Blood by Automated count 3.43 10^3/uL 0.60 - 3.40 H [facility] Monocytes [#/volume] in Blood by Automated count 0.88 10^3/uL 0.00 - 0.90 [facility] Eosinophils [#/volume] in Blood by Automated count 0.28 10^3/uL 0.00 - 0.70 [facility] Basophils [#/volume] in Blood by Automated count 0.06 10^3/uL 0.00 - 0.20 [facility] #IG 0.08 10^3/uL 0.00 - 0.10 [facility] ospital #NRBC 0.00 10^3/uL 0.00 - 0.00 [facility] MANUAL DIFF NOT INDICATED [facility] RBC MORPH NOT INDICATED [facility] spital ID Date Data Source [id number] 12/10/2020 09:46:00 PM EDT [facility] Name Value Range Interpretation Code Description Data Erika rce(s) Supporting Document(s) Prothrombin time (PT) 13.2 SECONDS 11.0 - 15.5 [facility] INR in Platelet poor plasma by Coagulation assay 0.95 0.93 - 1. 23 [facility] aPTT in Blood by Coagulation assay 34.0 SECONDS 24.8 - 36.7 [facility] \\BLDo\\INR INTERPRETATION\\BLDx\\ Therapeutic range for Coumadin and related oral anticoagulants. - International Normalized Ratio (INR): 2.0 - 3.0 for Venous Thrombosis, Pulmonary Embolus, Tissue heart valves, Acute NC Atrial Fibrillation, Valvular heart disease and recurrent Systemic Embolism. - International Normalized Ratio (INR): 2.5 - 3.5 for Mechanical Prosthetic valve. Procedure Social History Code Duration Value Status Description Data Source(s ) Smoking 05/04/2021 12:00:00 AM EDT Current Smoker completed Curre nt Smoker eCW1 ([facility]) Vital Signs ID Date Data Source UNK Name Value Range Interpretation Code Description Data Source(s) Body temperature 98.4 [degF] 98.4 [degF] MEDENT ([facility]) Body weight 290.00 [lb_av] 290.00 [lb_av] MEDEN T ([facility], [facility]) Systolic blood pressure 122 mm[Hg] 122 mm[Hg] M EDENT ([facility], [facility]) Diastolic blood pressure 80 mm[Hg] 80 mm[Hg] [facility] Heart rate 94 /min 94 /min [facility]) Respiratory rate 17 /min 17 /min [facility] ( [facility]) Oxygen saturation in Arterial blood by Pulse oximetry 97 % 97 % [facility] ([facility]) Body height 76 [in_i] 76 [in_i] [facility] ([facility]) 6'4" Body mass index (BMI) [Ratio] 35.3 kg/m2 35.3 k g/m2 [facility] ([facility]) Body weight 296 [lb_av] 296 [lb_av] eCW1 ([facility]) Body height 76 [in_i] 76 [in_i] eCW1 ([facility]) Body mass index (BMI) [Ratio] 36.03 kg/m2 36.03 kg/m2 eCW1 ([facility]) Heart rate 93 /min 93 /min eCW1 ([facility]) Respiratory rate 18 /min 18 /min eCW1 ([facility]) Body temperature 97.4 [degF] 97.4 [degF] eCW1 ( [facility]) Systolic blood pressure 130 mm[Hg] 130 mm[Hg] e CW1 ([facility]) Diastolic blood pressure 80 mm[Hg] 80 mm[Hg] eCW1 ([facility])
--- NOTE | 2021-06-16 10:38 | REP ---
INDICATION: PE COMPARISON: None. TECHNIQUE: Bailey scale and color Doppler evaluation using linear high frequency transducer. FINDINGS: Ultrasound examination of the right and left lower extremity deep venous structures from the common femoral vein through the calf/ankle to include the peroneal, and tibial veins demonstrates normal compressibility flow and wave patterns in response to respiration and augmentation. There is no evidence for deep venous thrombosis. Complex presumed left Earl's cyst measures 2.3 x 2.3 x 1.9 cm. IMPRESSION: No evidence for deep venous thrombosis. <Electronically signed by Kings Koo > 06/16/21 [id number]
[2021-06-16 11:58] LABS: PROTHROMBIN TIME 13.6 SECONDS (12.7-14.5)
[2021-06-16 11:59] LABS: PARTIAL THROMBOPLASTIN TIME 34.3 SECONDS (25.9-37.0)
[2021-06-16 12:10] LABS: CK-MB VALUE MASS < 1.0 NG/ML (<3.6); CPK CREATINE PHOSPHOKINASE 125 U/L (39-308); TROPONIN I < 0.02 NG/ML (< 0.10)
[2021-06-16] MEDS ORDERED: XARE20TA PO (13:55)
[2021-06-16] MEDS ORDERED: XARE15TA PO (13:55)
[2021-06-16 14:34] VITALS: BP 140/85
[2021-06-16] MEDS ORDERED: ELIQ5TAB PO (16:39)
--- NOTE | 2021-06-16 16:51 | DS.PDOC ---
Discharge Summary General Date of Admission Jun 16, 2021 at 05:45 Date of Discharge 06/16/21 Discharge Summary DISCHARGE DIAGNOSES: 1. PE COMPLICATIONS/CHIEF COMPLAINT: Pulmonary Emboli. HOSPITAL COURSE: Mr. Esparza, is a 55-year-old male with past medical history of paroxysmal atrial fibrillation, hypertension, hyperlipidemia, degenerative disc disease of L5, and COPD whoe presented to the emergency department with complaints of chest pain and shortness of breath. Of note, he was a poor historian of his past medical history and this was obtained from his primary care physician's note. He reported only having atrial fibrillation. On 06/15 patient was putting on tarp over his truck and began to experience diffuse chest pain, nonradiating without nausea, vomiting and diaphoresis and reported feeling winded. The symptoms resolved with rest. However, the morning of admission he felt something was going on thus came to the emergency department to be further evaluated. In the ED EKG showed no ST/T wave changes. Initial troponin was negative. A CT angiogram was done which was positive for PE. He remained hemodynamically stable. Her troponin trend was negative. He was discharged home on initially Xarelto but his primary pharmacy reported his insurance did not cover it ther efore verbal prescription was given for Eliquis. He was asked to follow-up with his primary care physician and have repeat CT scan of the chest done in 6 to 8 weeks. He requested to have a referral to a study director, which she was explained could be done with his primary care physician for his ongoing paroxysmal atrial fibrillation. At the time of discharge patient was asymptomatic and hemodynamically stable. He was asked to return to the emergency room department call 911 if his symptoms were to change. Of note, in the emergency room a hypercoagulable panel was sent by the ED provider. He was asked to follow this up with his primary care physician. DISCHARGE MEDICATIONS: Please see below. ALLERGIES: Please see below. PHYSICAL EXAMINATION ON DISCHARGE: VITAL SIGNS: Please see below. General: Lying in bed, no acute distress Head/Neck/Throat: Trachea midline, mucous membranes moist Eyes: Sclera anicteric, PERRLA Thorax: Normal respiratory effort on room air, lungs clear to auscultation bilaterally, no wheezes/rales/rhonchi Cardiovascular: Normal rate, regular rhythm, normal S1, S2; no S3, S4, rubs/gallops/murmurs Abdomen: Bowel sounds present, soft/nontender/nondistended Genitourinary: No CVA tenderness, no Kang in place Musculoskeletal: Moving all extremities, no edema Skin: Warm, dry Neurologic: AAOx3, speech fluent and goal-directed, no focal deficits, grossly intact LABORATORY DATA: Please see below. IMAGING: CT ANGIO CHEST FINDINGS: Satisfactory enhancement of the pulmonary vasculature is achieved and acute pulmonary emboli are identified within 3rd order branch vessels to the left lower lobe (images 103-135) and 2nd/3rd order branch vessels to the right lower lobe (images 82- 110). The lung parkinson themselves demonstrate minimal chronic changes primarily involving the right lower lung zone. No acute consolidation or effusion. No pneumothorax. No obvious suspicious nodule or mass lesion. Further evaluation of the mediastinum demonstrates atherosclerotic changes to the thoracic aorta and coronary arteries without aortic aneurysm/dissection or cardiomegaly. No pericardial effusion. No adenopathy. Tracheobronchial tree is patent. Surrounding musculoskeletal structures demonstrate age-related changes. IMPRESSION: 1. Pulmonary emboli to the bilateral lower lobes. No associated pulmonary parenchymal consolidation/atelectasis or effusion. 2. No further acute mediastinal or pleuroparenchymal process appreciated Duplex, Ext LOWER veins, bilat FINDINGS: Ultrasound examination of the right and left lower extremity deep venous structures from the common femoral vein through the calf/ankle to include the peroneal, and tibial veins demonstrates normal compressibility flow and wave patterns in response to respiration and augmentation. There is no evidence for deep venous thrombosis. Complex presumed left Earl's cyst measures 2.3 x 2.3 x 1.9 cm. IMPRESSION: No evidence for deep venous thrombosis. PROGNOSIS: Good ACTIVITY: As tolerated DIET: Regular DISCHARGE INSTRUCTIONS: 1. As mentioned above DISCHARGE CONDITION: Stable TIME SPENT ON DISCHARGE: 25 minutes. Vital Signs/I&Os Vital Signs Date Time Temp Pulse Resp B/P (MAP) Pulse Ox O2 Delivery O2 Flow Rate FiO2 06/16/21 14:34 97.1 69 16 140/85 (103) 97 Room Air Laboratory Data Labs 24H Laboratory Tests 2 06/16/21 06:05: Immature Granulocyte % (Auto) 0.5, Neutrophils (%) (Auto) 72.4H, Lymphocytes (%) (Auto) 16.7L, Monocytes (%) (Auto) 8.3H, Eosinophils (%) (Auto) 1.6, Basophils (%) (Auto) 0.5, Neutrophils # (Auto) 7.7, Lymphocytes # (Auto) 1.8, Monocytes # (Auto) 0.9H, Eosinophils # (Auto) 0.2, Basophils # (Auto) 0.1, Nucleated Red Blood Cells % (auto) 0.0, Prothrombin Time 13.0, Prothromb Time International Ratio 0.94, Anion Gap 6L, Glomerular Filtration Rate > 60.0, Calcium Level 9.2, Total Bilirubin 0.3, Direct Bilirubin < 0.1, Aspartate Amino Transf (AST/SGOT) 14, Alanine Aminotransferase (ALT/SGPT) 24, Alkaline Phosphatase 90, KV-Vre-Z-Type Natriuretic Peptide 19, Total Protein 7.4, Albumin 3.6, Albumin/Globulin Ratio 0.9, Lipase 106 06/16/21 06:18: POC Troponin I (Misc) 0.00 06/16/21 11:19: Prothrombin Time 13.6, Prothromb Time International Ratio 1.00, WD-Ngt-P-Type Natriuretic Peptide 16, Activated Partial Thromboplast Time 34.3, Total Creatine Kinase 125, Creatine Kinase MB < 1.0, Creatine Kinase MB Relative Index 0.80, Troponin I < 0.02 CBC/BMP Laboratory Tests 06/16/21 06:05 Microbiology Microbiology 06/16/21 Respiratory Virus Panel (PCR) ([facility]) - Final, Complete Discharge Medications Scheduled Apixaban (Eliquis) 5 Mg Tablet, 10 MG PO BID Apixaban (Eliquis) 5 Mg Tablet, 5 MG PO BID To be started 06/22/21 Aspirin (Aspirin EC) 81 Mg Tablet.dr, 81 MG PO DAILY, (Reported) Lactobacillus Acidophilus (Acidophilus) 100 Mg Capsule, 100 MG PO DAILY, (Reported) Metoprolol Succinate (Metoprolol Succinate) 25 Mg Tab.er.24h, 12.5 MG PO DAILY, (Reported) Allergies Coded Allergies: No Known Allergies (Unverified , 06/16/21) ESTELA SIFUENTES M.D. Jun 16, 2021 16:45
[2021-06-17] MEDS ORDERED: ASPIRIN 81MG ENTERIC TABLET PO SCH (09:00)
[2021-06-17] MEDS ORDERED: METOPROLOL SUCC *XL* 12.5MG PER 1/2 TAB (TopROL *XL*) PO SCH (09:00)
--- NOTE | 2021-06-18 07:46 | ECGEPIP ---
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
--- NOTE | 2021-06-18 07:49 | ECGEPIP ---
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
[2021-06-22 12:09] LABS: ANTI THROMBIN 3 ANTIGEN IMMUNO 92 % (72-124); ANTI THROMBIN 3 FUNCT ACTIVITY 95 % (75-135); CARDIOLIPIN IGA ANTIBODY <9 APL U/mL (0-11); CARDIOLIPIN IGG ANTIBODY <9 GPL U/mL (0-14); CARDIOLIPIN IGM ANTIBODY <9 MPL U/mL (0-12); PHOSPHOLIPIDS LEVEL 194 mg/dL (150-250); PROTEIN C FUNCTIONAL ACTIVITY 101 % (73-180); PROTEIN S FUNCTIONAL ACTIVITY 97 % (63-140)
== END 2021-06-16 16:45 | disposition home health service (06) ==
LOC: M ED 05:44 → M ED INP 05:45 → ENRESERV 13:00
PROVIDERS: ADMIT Internal Medicine; ATTEND Internal Medicine
DX: I26.99 Other pulmonary embolism without acute cor pulmonale (principal); I48.0 Paroxysmal atrial fibrillation; Z79.01 Long term (current) use of anticoagulants; Z85.118 Personal history of other malignant neoplasm of bronchus and lung; J44.9 Chronic obstructive pulmonary disease, unspecified; Z79.82 Long term (current) use of aspirin; I10 Essential (primary) hypertension; E78.5 Hyperlipidemia, unspecified; F17.218 Nicotine dependence, cigarettes, with other nicotine-induced disorders
CPT/HCPCS: 36415; 71045; 71275; 80048; 80076; 81240; 82550; 82553; 83690; 83880; 84311; 85025; 85300; 85301; 85303; 85305; 85610; 85613; 85730; 85732; 86147; 87798; 93005; 93041; 93970; 94760; 99284; Q9967

== ENCOUNTER → 2022-07-18 | Outpatient (REF) | payer BC ==
[~2022-07-18] MED LIST changes: +ACID100C PO; +ASPI-161 PO; +ELIQ5TAB PO; +IBUP80TA PO; +METO1TAB32 PO; +XARE15TA PO
[2022-07-18 14:57] LABS: HEMATOCRIT 41.1 % (42.0-52.0); MEAN CORPUSCULAR HEMOGLOBIN 32.4 pg (27.0-33.0); MEAN CORPUSCULAR HGB CONC 34.1 g/dl (32.0-36.5); MEAN CORPUSCULAR VOLUME 95.1 fl (80.0-96.0); PLATELET COUNT, AUTOMATED 341 10^3/uL (150-450); RED BLOOD COUNT 4.32 10^6/uL (4.30-6.10); WHITE BLOOD COUNT 9.1 10^3/uL (4.0-10.0)
[2022-07-18 15:08] LABS: ALBUMIN 3.6 G/DL (3.2-5.2); ALKALINE PHOSPHATASE 84 U/L (46-116); ALT/SGPT 28 U/L (7.0-40); AST/SGOT 28 U/L (<34); BILIRUBIN,TOTAL < 0.2 MG/DL (0.3-1.2); BLOOD UREA NITROGEN 18 MG/DL (9-23); CALCIUM LEVEL 9.3 MG/DL (8.5-10.1); CARBON DIOXIDE LEVEL 27 MMOL/L (20-31); CHLORIDE LEVEL 103 MMOL/L (98-107); CHOLESTEROL LEVEL 212 MG/DL (<200); CHOLESTEROL RISK RATIO 8.31 (<5); CREATININE FOR GFR 0.79 MG/DL (0.70-1.30); FREE T4 1.07 NG/DL (0.89-1.76); GLOMERULAR FILTRATION RATE > 60.0 (>56); GLUCOSE, FASTING 99 MG/DL (60-100); HDL CHOLESTEROL 25.5 MG/DL (>40); NON-HDL-C 187 MG/DL; POTASSIUM SERUM 5.1 MMOL/L (3.5-5.1); SODIUM LEVEL 136 MMOL/L (136-145); THYROID STIMULATING HORMONE 3.157 uIU/ML (0.55-4.78); TOTAL PROTEIN 6.9 G/DL (5.7-8.2); TRIGLYCERIDES LEVEL 1179 MG/DL (<150)
[2022-07-18 15:47] LABS: HEMOGLOBIN A1c 5.3 % (4.0-6.0)
== END ==
LOC: M SFHCADAM 09:55
PROVIDERS: ATTEND Family Medicine
DX: G47.33 Obstructive sleep apnea (adult) (pediatric) (principal); I11.9 Hypertensive heart disease without heart failure; E78.5 Hyperlipidemia, unspecified; E74.9 Disorder of carbohydrate metabolism, unspecified; Z12.5 Encounter for screening for malignant neoplasm of prostate; I48.0 Paroxysmal atrial fibrillation
CPT/HCPCS: 80053; 80061; 83036; 84439; 84443; 85027; G0103

== ENCOUNTER → 2022-11-24 | Outpatient (REF) | payer BC ==
[2022-11-24 17:15] LABS: HEMATOCRIT 41.2 % (42.0-52.0); HEMOGLOBIN 14.1 g/dl (13.5-17.5); MEAN CORPUSCULAR HEMOGLOBIN 32.5 pg (27.0-33.0); MEAN CORPUSCULAR HGB CONC 34.2 g/dl (32.0-36.5); MEAN CORPUSCULAR VOLUME 94.9 fl (80.0-96.0); PLATELET COUNT, AUTOMATED 363 10^3/uL (150-450); RED BLOOD COUNT 4.34 10^6/uL (4.30-6.10); WHITE BLOOD COUNT 9.6 10^3/uL (4.0-10.0)
[2022-11-24 17:26] LABS: ALBUMIN 3.8 G/DL (3.2-5.2); ALKALINE PHOSPHATASE 60 U/L (46-116); ALT/SGPT 27 U/L (7.0-40); AST/SGOT 19 U/L (<34); BILIRUBIN,TOTAL 0.5 MG/DL (0.3-1.2); BLOOD UREA NITROGEN 15 MG/DL (9-23); CALCIUM LEVEL 9.4 MG/DL (8.5-10.1); CARBON DIOXIDE LEVEL 27 MMOL/L (20-31); CHLORIDE LEVEL 104 MMOL/L (98-107); CHOLESTEROL LEVEL 165 MG/DL (<200); CHOLESTEROL RISK RATIO 4.86 (<5); CREATININE FOR GFR 0.91 MG/DL (0.70-1.30); GLOMERULAR FILTRATION RATE > 60.0 (>56); GLUCOSE, FASTING 81 MG/DL (60-100); HDL CHOLESTEROL 33.9 MG/DL (>40); LDL CHOLESTEROL 107.3 MG/DL (<100); NON-HDL-C 131.1 MG/DL; POTASSIUM SERUM 4.5 MMOL/L (3.5-5.1); SODIUM LEVEL 139 MMOL/L (136-145); TOTAL PROTEIN 7.1 G/DL (5.7-8.2); TRIGLYCERIDES LEVEL 119 MG/DL (<150)
== END ==
LOC: M SFHCADAM 14:55
PROVIDERS: ATTEND Family Medicine
DX: Z01.818 Encounter for other preprocedural examination (principal); G47.33 Obstructive sleep apnea (adult) (pediatric); I11.9 Hypertensive heart disease without heart failure; E78.1 Pure hyperglyceridemia

== ENCOUNTER → 2025-02-13 | Outpatient (CLI) | payer BC ==
[~2025-02-13] MED LIST changes: -ASPI-161 PO; +ASPI-615 PO
[2025-02-13 15:48] LABS: PLATELET COUNT, AUTOMATED 369 10^3/uL (150-450)
[2025-02-13 16:14] LABS: ALT/SGPT 31 U/L (7.0-40); AST/SGOT 22 U/L (<34); C REACTIVE PROTEIN QUANTITATIV 0.88 MG/DL (<1.0); CALCIUM LEVEL 9.8 MG/DL (8.5-10.1); CARBON DIOXIDE LEVEL 26 MMOL/L (20-31); CHLORIDE LEVEL 105 MMOL/L (98-107); CHOLESTEROL LEVEL 179 MG/DL (<200); CHOLESTEROL RISK RATIO 5.92 (<5); CREATININE FOR GFR 0.85 MG/DL (0.70-1.30); GLOMERULAR FILTRATION RATE > 90.0 (>56); LDL CHOLESTEROL 103.0 MG/DL (<100); NON-HDL-C 148.8 MG/DL; POTASSIUM SERUM 4.5 MMOL/L (3.5-5.1); PSA SCREENING 0.59 NG/ML (< 4.00); SODIUM LEVEL 142 MMOL/L (136-145); TRIGLYCERIDES LEVEL 229 MG/DL (<150)
[2025-02-13 16:35] LABS: ESTIMATED AVERAGE GLUCOSE 128.0 MG/DL (60-110)
== END ==
LOC: M PLALAB 14:34
PROVIDERS: ATTEND Family Medicine
DX: M17.11 Unilateral primary osteoarthritis, right knee (principal); I48.0 Paroxysmal atrial fibrillation; I11.9 Hypertensive heart disease without heart failure; E74.9 Disorder of carbohydrate metabolism, unspecified; E78.5 Hyperlipidemia, unspecified; Z12.5 Encounter for screening for malignant neoplasm of prostate
CPT/HCPCS: 36415; 73564; 80053; 80061; 83036; 85027; 86140; G0103

== ENCOUNTER → 2025-04-06 | Outpatient (CLI) | payer OTHER | LOC: M RAD 11:28 | PROVIDERS: ATTEND Student in an Organized Health Care Education/Training Program | DX: M79.661 Pain in right lower leg (principal) ==